=== PATIENT | male | born 1935 | race Caucasian/White ===

== ENCOUNTER 2019-05-02 12:20 | Inpatient (IN) | payer MEDICARE, OTHER ==
[~2019-05-02] VITALS: Ht 177.8 cm; Wt 86.2 kg
--- NOTE | 2019-05-02 12:30 | NUR ---
ED Nurse Note: Patient brought in by family member from home due to witnessed syncopal episode at home. Per family member, patient became diaphoretic, c/o feeling dizzy and fainted for ~ 3 min. Family noticed him having slight breathing problem at time. Patient awake, alert, oriented x 0. Patient does not follow commands, but able to withdraw from painful stimuli. Patient has hx of dementia and no changes in mental status per family member. Regular breathing with slight audible wheezing noted. RR 22, no accessory muscle use noted. No facial grimacing or guarding noted. Placed patient on panel monitor. No ectopy noted.
--- NOTE | 2019-05-02 12:30 | NUR ---
Note undone in EDM - 05/02/19 at 1358 by JARAD ED Nurse Note: Patient presents to ER due to witnessed syncopal episode at home. Per family member, patient became diaphoretic, c/o feeling dizziness and fainted for ~ 3 min and now seeing him having slight breathing problem. Patient awake, altert, oriented x 0. Patient unable to follow commands, but able to withdraw from painful stimuli. Patient has hx of dementia and no changes in mental status per family member. Regular, unlabored breathing noted. Slightly audible wheezing noted.
[2019-05-02] MEDS ORDERED: CITRACAL + D E1 EACH PO (12:53)
[2019-05-02] MEDS ORDERED: LOSARTAN POTASS50 MG ORAL (12:53)
[2019-05-02] MEDS ORDERED: ALLOPURINOL100 M1 ORAL (12:53)
[2019-05-02] MEDS ORDERED: DEPAKOTE ER250 MG ORAL (12:53)
[2019-05-02] MEDS ORDERED: FERROUS SULFAT325 MG ORAL (12:53)
[2019-05-02] MEDS ORDERED: ULORIC40 MG ORAL (12:53)
[2019-05-02] MEDS ORDERED: NAMENDA10 MG ORAL (12:53)
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
[2019-05-02] MEDS ORDERED: Albuterol/Ipratropium 3ml neb HHN ONE (13:15)
--- NOTE | 2019-05-02 13:22 | NUR ---
ED Nurse Note: pt hard stick 22 g estabkished lab sents pt down to ct.
[2019-05-02 13:34] LABS: BASOPHILS % (AUTO) 0.9 % (0.0-2.0); EOSINOPHILS % (AUTO) 3.6 % (0.0-3.0); HEMATOCRIT 43.3 % (42.0-52.0); LYMPHOCYTES % (AUTO) 12.9 % (20.0-45.0); MEAN CORPUSCULAR VOLUME 98 FL (80-99); MONOCYTES % (AUTO) 10.8 % (1.0-10.0); NEUTROPHILS % (AUTO) 71.8 % (45.0-75.0); PLATELET COUNT 172 K/UL (150-450)
[2019-05-02 13:43] LABS: ANION GAP 5 mmol/L (5-15); BLOOD UREA NITROGEN 28 mg/dL (7-18); CALCIUM 9.1 MG/DL (8.5-10.1); CARBON DIOXIDE 33 MMOL/L (21-32); CHLORIDE 103 MMOL/L (98-107); CREATININE 1.4 MG/DL (0.55-1.30); POTASSIUM 5.5 MMOL/L (3.5-5.1); SODIUM 141 MMOL/L (136-145)
[2019-05-02 14:00] VITALS: BP 125/82
[2019-05-02 14:00] LABS: ALANINE AMINOTRANSFERASE 22 U/L (12-78); ALBUMIN 4.2 G/DL (3.4-5.0); ALBUMIN/GLOBULIN RATIO 1.4 (1.0-2.7); ALKALINE PHOSPHATASE 100 U/L (46-116); ASPARTATE AMINO TRANSFERASE 30 U/L (15-37); BILIRUBIN,TOTAL 0.3 MG/DL (0.2-1.0); CKMB 2.1 NG/ML (0.0-3.6); CREATINE KINASE 67 U/L (26-308)
--- NOTE | 2019-05-02 14:00 | NUR ---
ekg and troponin faxed to [facility] dr hall spoke to [facility] er md also spoke to patients family regarding the transfer . but patient and family refuse to be transferd dr ervin has been made aware
[2019-05-02] MEDS ORDERED: Enoxaparin 80mg Inj SUBQ ONE (14:15)
--- NOTE | 2019-05-02 14:20 | NUR ---
ED Nurse Note: pt back from ct +trop ermd and charge aware pt medicated . per rob ok to give lovenox 80 . Verbal order. pt family refused to have pt tx'd they want him admitted at [facility] [place] awaiting further orders. will monitor.
--- NOTE | 2019-05-02 14:37 | NUR ---
PAGED DR SUTHERLAND.[place] FOR CARDIOLOGY CONSULT
--- NOTE | 2019-05-02 14:47 | Diagnostic Imaging Report ---
Indication: Headache Technique: Contiguous 5 mm thick transaxial imaging of the head obtained in a Siemens Sensation [address] scanner. Soft tissue and bone windows generated. Automatic Exposure Control was utilized. Total Dose length Product (DLP): 1432.[address] Dose Index Volume (CTDIvol): 70.38 mGy Comparison: none Findings: There is mild shift of the midline structures from left to right. At the same time, there is a area of encephalomalacia with signs of volume loss noted in the left frontal and temporal lobe consistent with previous infarct. Generalized atrophy of the brain demonstrated diffusely. There is no definite mass effect or edema. No hemorrhage identified. Ex vacuo dilatation of the left lateral ventricle is noted. Generalized low attenuation of periventricular white matter demonstrated consistent chronic small vessel disease. There is also encephalomalacia in the right frontal lobe. IMPRESSION: No evidence of acute intracranial hemorrhage, mass effect or edema Evidence of a old previous left MCA territory infarct. Moderate encephalomalacia noted. Generalized atrophy of the brain Chronic small vessel disease involving Show white matter The CT scanner at [facility] is accredited by the [employer] and the scans are performed using dose optimization techniques as appropriate to a performed exam including Automatic Exposure control.
--- NOTE | 2019-05-02 15:09 | Diagnostic Imaging Report ---
Indication: Dyspnea Comparison: None A single view chest radiograph was obtained. Findings: There is marked elevation of the right hemidiaphragm with interposition of bowel between the diaphragm and liver versus a diaphragmatic hernia. Heart may be enlarged. Bones are osteopenic. IMPRESSION: Elevated right hemidiaphragm versus hernia.
[2019-05-02 15:55] VITALS: BP 135/75
--- NOTE | 2019-05-02 16:27 | NUR ---
report given to LUCIA SHER patient will be transferd to [id number] dr marks is here to evaluate patient (acls protocol)
--- NOTE | 2019-05-02 16:50 | NUR ---
NURSE NOTES: RECEIVED REPORT FROM SHARIFA SHER STAFF OF ER DPT. RECEIVED PT VIA RNOTUS ESCORTED BY BHARAT SHER AND PT FAMILY.PT ADMITED WITH DX OF SYNCOPE,NSTEMI.PT ALERT TO NAME BUT CONFUSED ,FARSI SPIKING ONLY .Long PINA AND DR CHAO CAME TO SEE THE PT AND MADE AWARE AND NOTIFIED REGARDING K+ 5.5 AND TROPONIN 0.135. ALL NEW ADMISSION ORDERS NOTED AND CARRIED OUT.RENDERED TOTAL P.M NSG CARE DONE.PT INCONT OF URINE APPLY MARCO CATH.PT KEEP CLEAN AND DRY POSSIBLE.FULL BODY ASSESMENT DONE.NO EVIDENCE OF SKIN BREAK DOWN NOTED AT THIS TIME.WILL CONT TO MONITOR.
--- NOTE | 2019-05-02 17:00 | NUR ---
NURSE NOTES:PT HAS SCRATCHES ON RT FARE ARM.PT STATING THAT PT IS BEEN SCRATCHING HIS ARM.NO ACUTE DISTRESS NOTED AT THIS TIME.PT REMAINS FREE OF INJURIES.WILL CONT TO MONITOR.
[2019-05-02 17:05] VITALS: BP 133/86
--- NOTE | 2019-05-02 17:06 | NUR ---
CASE MANAGEMENT: INITIAL REVIEW 83 YO M PRESENTED TO OUR ED FROM HOME CC: SYNCOPE PMHx: TBI. HTN. SI:SYNCOPE. NSTEMI. T 98.2 HR 80 RR 18 B/P 132/82 SATS 100% ON RA K 5.5 CO2 33 BUN 28 CR 1.4 TROPONIN 0.135 IS: ASA PO X1 DUO NEB HHN X1 CT HEAD IMPRESSION:No evidence of acute intracranial hemorrhage, mass effect or edema. Evidence of a old previous left MCA territory infarct. Moderate encephalomalacia noted. Generalized atrophy of the brain. Chronic small vessel disease involving. Show white matter. PATIENT ADMITTED TO SDU 05/02/2019 @ 1319 DCP: PATIENT TO BE DISCHARGED TO HOME ONCE MEDICALLY CLEARED. PLAN OF CARE: CARDIO EVAL Addendum: 05/02/19 at 1713 by Raya Díaz CM INTERQUAL MET
--- NOTE | 2019-05-02 17:13 | Cardiac Electrophysiology PN ---
Subjective Subjective [id number] Objective Last 24 Hour Vital Signs Date Time Temp Pulse Resp B/P (MAP) Pulse Ox O2 Delivery O2 Flow Rate FiO2 05/02/19 16:23 98.2 72 18 130/80 98 Room Air 72 05/02/19 15:55 98.2 78 18 135/75 100 Room Air 05/02/19 14:00 98.2 75 23 125/82 100 Room Air 21 05/02/19 14:00 68 18 100 Room Air 21 05/02/19 13:50 63 14 98 Room Air 21 05/02/19 13:50 63 14 98 Room Air 21 05/02/19 12:26 98.2 80 18 132/82 (99) 100 Room Air Laboratory Tests Test 05/02/19 12:44 05/02/19 12:55 Venous Blood pH 7.326 Venous Blood Partial Pressure CO2 66.5 Venous Blood Partial Pressure O2 < 45.3 Venous Blood HCO3 34.0 Venous Blood Total Carbon Dioxide 66.5 Venous Bld O2 Saturation (Measured) Pending Venous Blood Oxygen Saturation 46.0 Venous Blood Base Excess 5.6 Methemoglobin 0.2 Sodium (Blood Gas) Pending White Blood Count 7.0 K/UL (4.8-10.8) Red Blood Count 4.40 M/UL (4.70-6.10) L Hemoglobin 14.0 G/DL (14.2-18.0) L Hematocrit 43.3 % (42.0-52.0) Mean Corpuscular Volume 98 FL (80-99) Mean Corpuscular Hemoglobin 31.8 PG (27.0-31.0) H Mean Corpuscular Hemoglobin Concent 32.3 G/DL (32.0-36.0) Red Cell Distribution Width 12.0 % (11.6-14.8) Platelet Count 172 K/UL (150-450) Mean Platelet Volume 9.2 FL (6.5-10.1) Neutrophils (%) (Auto) 71.8 % (45.0-75.0) Lymphocytes (%) (Auto) 12.9 % (20.0-45.0) L Monocytes (%) (Auto) 10.8 % (1.0-10.0) H Eosinophils (%) (Auto) 3.6 % (0.0-3.0) H Basophils (%) (Auto) 0.9 % (0.0-2.0) Sodium Level 141 MMOL/L (136-145) Potassium Level 5.5 MMOL/L (3.5-5.1) H Chloride Level 103 MMOL/L (98-107) Carbon Dioxide Level 33 MMOL/L (21-32) H Anion Gap 5 mmol/L (5-15) Blood Urea Nitrogen 28 mg/dL (7-18) H Creatinine 1.4 MG/DL (0.55-1.30) H Estimat Glomerular Filtration Rate mL/min (>60) Glucose Level 102 MG/DL (74-106) Calcium Level 9.1 MG/DL (8.5-10.1) Total Bilirubin 0.3 MG/DL (0.2-1.0) Aspartate Amino Transf (AST/SGOT) 30 U/L (15-37) Alanine Aminotransferase (ALT/SGPT) 22 U/L (12-78) Alkaline Phosphatase 100 U/L (46-116) Total Creatine Kinase 67 U/L (26-308) Creatine Kinase MB 2.1 NG/ML (0.0-3.6) Creatine Kinase MB Relative Index 3.1 Troponin I 0.135 ng/mL (0.000-0.056) Total Protein 7.3 G/DL (6.4-8.2) Albumin 4.2 G/DL (3.4-5.0) Globulin 3.1 g/dL Albumin/Globulin Ratio 1.4 (1.0-2.7) Joaquim Pérez MD May 02, 2019 17:13
[2019-05-02] MEDS: Memantine 10mg tab ORAL SCH (18:26)
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
--- NOTE | 2019-05-02 19:00 | NUR ---
HAND-OFF: Report given to .MARQUISE SHER.
--- NOTE | 2019-05-02 19:07 | NUR ---
NURSE NOTES: Received report from NIKKY Watkins. Pt seen in bed in semi conway position. Alert, responsive with episode of confusion noted. IV site noted to left hand 22 g and is intact. Condom cath present and is intact. Patient is on room air with no SOB at this time. no acute distress present. Bed is in lowest position. Call light is within easy reach while in bed. will continue to monitor.
[2019-05-02 20:00] VITALS: BP 112/60
--- NOTE | 2019-05-02 20:15 | History and Physical Report ---
DATE OF ADMISSION: 05/02/2019 CHIEF COMPLAINT: Syncope. HISTORY OF PRESENT ILLNESS: This is a 83-year-old male with past medical history of CVA, hypertension, and COPD who presented with syncopal episode few minutes prior to coming to the hospital emergency room at [place]. The patient was sitting upright and then grabbed his chest and slumped over for a few minutes and the family called bracelet form coverer to bring the patient to the emergency room. The patient is mute and has a history of severe dementia with urinary and bowel incontinence. He has a history of brain injury 34 years ago and was in coma for 40 days back in [facility]. He also has history of dysphagia and left-sided weakness secondary to his CVA. PAST SURGICAL HISTORY: Include left leg fracture status post surgery, had carotid stenosis surgery, anemia, status post bleeding after colonoscopy. SOCIAL HISTORY: Quit smoking 5 years ago. No alcohol or IV drug use. ALLERGIES: No known drug allergy. MEDICATIONS: The patient is on 600 mg b.i.d., divalproex 250 mg t.i.d., ferrous sulfate 325 mg one p.o. daily, Lomotil one p.o. b.i.d., losartan 50 mg one daily, Lovaza two tabs b.i.d., Tylenol 500 two tablets q. 8 h, Singulair 10 mg daily, Namenda 10 mg b.i.d., omeprazole 40 mg daily, ProAir inhalation two puffs q.i.d. p.r.n., Uloric 40 mg daily. REVIEW OF SYSTEMS: Negative except for history of present illness. PHYSICAL EXAMINATION: VITAL SIGNS: Include temperature 98.2, pulse 80, respirations 18, blood pressure 132/82, pulse oximetry 100% on room air. GENERAL APPEARANCE: Alert, no apparent distress, does not respond to command. HEENT: Normocephalic and normochromic. Extraocular muscles intact. Throat is clear. NECK: Supple. No lymphadenopathy. RESPIRATIONS: Clear to auscultation bilaterally. No wheezing, no rales, no rhonchi CARDIOVASCULAR: Regular rate and rhythm. No murmur. No gallop. ABDOMEN: Soft, nontender, nondistended. Positive bowel sounds . EXTREMITIES: No edema, No Cyanosis or clubbing. NEUROLOGIC: Alert. Able to move extremities but weak on the left side. SKIN: No rash. LABORATORY DATA: Include WBC 7.0, hemoglobin 14, hematocrit 43.3, platelet count is 172, neutrophils 71, lymphocytes were 12.9. Sodium 141, potassium 5.5, chloride 103, carbon dioxide 33, BUN 28, creatinine 1.4, glucose 102, AST 30, ALT 22. Troponin is 0.135, slightly elevated. ABG shows pH of 7.326, pCO2 66, pO2 less than 45, bicarb 34, total CO2 66.5. IMAGING: CT of the head showed MCA old infarct with generalized atrophy of the brain, and chronic small vessel disease. Chest x-ray done showed elevated right hemidiaphragm. IMPRESSION: 1. Syncope. 2. Non-ST elevated myocardial infarction. We will continue medical therapy and have sales technician home theater is Dr. Pérez evaluate the patient in the hospital. The patient will be admitted into step down and follow up in step-down. 3. History of severe dementia. 4. COPD. 5. History of old CVA with MCA distribution. 6. Hypertension. 7. Hyperlipidemia. 8. Anemia. 9. History of gout. PLAN: The patient will be admitted into the step-down and will be stabilized with medical therapy and will be discharged to longterm or rehabilitation for further evaluation and care. The patient will be admitted for minimum of 2-night stay for diagnosis of non-ST myocardial infarction and syncope. Joellen Lara M.D. DR: Chloé JOB#: [id number] CC: TATIANA
[2019-05-02] MEDS: Depakote ER 250mg tab ORAL SCH (20:55)
[2019-05-02] MEDS: Metoprolol 25mg tab ORAL SCH (20:55)
[2019-05-03] VITALS: BP 130/70
[2019-05-03 04:00] VITALS: BP 118/65
[2019-05-03 04:36] LABS: ANION GAP 8 mmol/L (5-15); BLOOD UREA NITROGEN 26 mg/dL (7-18); CALCIUM 8.5 MG/DL (8.5-10.1); CARBON DIOXIDE 26 MMOL/L (21-32); CHLORIDE 105 MMOL/L (98-107); CREATININE 1.3 MG/DL (0.55-1.30); POTASSIUM 4.7 MMOL/L (3.5-5.1); SODIUM 139 MMOL/L (136-145)
[2019-05-03 04:37] LABS: BASOPHILS % (AUTO) 0.9 % (0.0-2.0); EOSINOPHILS % (AUTO) 4.8 % (0.0-3.0); HEMATOCRIT 38.1 % (42.0-52.0); HEMOGLOBIN 12.2 G/DL (14.2-18.0); LYMPHOCYTES % (AUTO) 15.8 % (20.0-45.0); MEAN CORPUSCULAR VOLUME 99 FL (80-99); MONOCYTES % (AUTO) 12.4 % (1.0-10.0); NEUTROPHILS % (AUTO) 66.2 % (45.0-75.0); PLATELET COUNT 160 K/UL (150-450); RED BLOOD COUNT 3.87 M/UL (4.70-6.10); RED CELL DISTRIBUTION WIDTH 11.8 % (11.6-14.8); WHITE BLOOD COUNT 5.9 K/UL (4.8-10.8)
--- NOTE | 2019-05-03 04:50 | NUR ---
NURSE NOTES: Troponin is 0.140. EKG performed. Left message with Dr palacio. awaiting for call back at this time
--- NOTE | 2019-05-03 07:01 | NUR ---
HAND-OFF: Report given to NIKKY Raygoza.
--- NOTE | 2019-05-03 07:15 | NUR ---
NURSE NOTES: Report received from NIKKY Ceja. Observed patient in bed, asleep, arousable to verbal stimuli. awake overnight monitor shows sinus rhythm at this time. On room air, no respiratory distress noted. External catheter intact and draining well. Left hand 22g intact and patent with IV fluids running at prescribed rate. EKG done by PM nurse and troponin results relayed to Dr Pérez, no new orders at this time. at bedside. Safety precautions in place, bed locked, alarmed, and in lowest position, side rails up x3, and call light left within reach. Will continue with plan of care and monitor patient.
[2019-05-03 08:00] VITALS: BP 113/69
[2019-05-03] MEDS: Allopurinol 100mg Tab ORAL SCH (08:32)
[2019-05-03] MEDS: Depakote ER 250mg tab ORAL SCH ×2 (08:32→09:00)
[2019-05-03] MEDS: Memantine 10mg tab ORAL SCH ×2 (08:33→17:07)
[2019-05-03] MEDS: Metoprolol 25mg tab ORAL SCH ×2 (08:34→20:14)
[2019-05-03] MEDS: Losartan 50mg tab ORAL SCH (08:34)
[2019-05-03] MEDS: Aspirin Baby 81mg ORAL SCH (08:46)
--- NOTE | 2019-05-03 08:54 | NUR ---
NURSE NOTES: at bedside requesting to continue patient on Seroquel 50mg twice a day. Unable to give Depakote ER, patient on pureed diet, unable to crush pill. Called and left a message to Dr Lara, awaiting for call back.
[2019-05-03] MEDS ORDERED: Aspirin EC 81mg tab ORAL SCH (09:00)
--- NOTE | 2019-05-03 09:45 | NUR ---
NURSE NOTES: Dr Lara talking to patient's at bedside with new orders noted and carried out.
--- NOTE | 2019-05-03 09:47 | General Progress Note ---
Assessment/Plan Status: stable Assessment/Plan: 1. Dehydration - improving. cont IVF. 2. Elevated Troponin NSTEMI - Echo and carotid u/s pending. Cardiology following. on B david and ASA. 3. CVA with Lt sided hemeplegia - cont ASA 81 mg daily. 4. COPD - restart home med. symbicort and duoneb nab prn. 5. Advanced Dementia - stable. cont home seroqual 50 mg one po bid. 6. Dysphagia - on puree diet. 7. Urinary and bowel incontinence 8. Syncope. cont hydration and cardiac work up. 9. H/o Gout - on allopurinol 100 mg one po daily. Subjective Date patient seen: May 03, 2019 Time patient seen: 09:30 Constitutional: Reports: weakness HEENT: Reports: no symptoms Cardiovascular: Reports: no symptoms Respiratory: Reports: no symptoms Gastrointestinal/Abdominal: Reports: no symptoms Genitourinary: Reports: no symptoms Neurologic/Psychiatric: Reports: weakness Endocrine: Reports: no symptoms Hematologic/Lymphatic: Reports: no symptoms Allergies: Coded Allergies: No Known Allergies (Unverified , 05/02/19) Subjective This morning he is doing well. He didn't sleep well last night b/c he did not get his seroqual. Afebrile. no nausea or vomiting. no chest pain. no sob. Objective Last 24 Hour Vital Signs Date Time Temp Pulse Resp B/P (MAP) Pulse Ox O2 Delivery O2 Flow Rate FiO2 05/03/19 08:34 113/69 05/03/19 08:34 65 113/69 05/03/19 08:00 98.1 60 20 113/69 (84) 96 05/03/19 08:00 Room Air 05/03/19 04:00 97.8 61 20 118/65 (82) 96 05/03/19 04:00 Room Air 05/03/19 03:43 68 05/03/19 00:00 98.1 59 20 130/70 (90) 96 05/03/19 00:00 Room Air 05/02/19 23:36 56 05/02/19 20:55 66 112/60 05/02/19 20:00 Room Air 05/02/19 20:00 97.8 66 18 112/60 (77) 97 05/02/19 17:05 97.8 68 20 133/86 (102) 96 05/02/19 17:05 Room Air 05/02/19 16:59 67 05/02/19 16:23 98.2 72 18 130/80 98 Room Air 72 05/02/19 15:55 98.2 78 18 135/75 100 Room Air 05/02/19 14:00 98.2 75 23 125/82 100 Room Air 21 05/02/19 14:00 68 18 100 Room Air 21 05/02/19 13:50 63 14 98 Room Air 21 05/02/19 13:50 63 14 98 Room Air 21 05/02/19 12:26 98.2 80 18 132/82 (99) 100 Room Air Intake and Output 05/02/19 05/03/19 18:59 06:59 Intake Total 370 ml 600 ml Output Total 1 ml 450 ml Balance 369 ml 150 ml Intake Oral 320 ml 50 ml IV Total 50 ml 550 ml Output Urine Total 450 ml Stool Total 1 ml # Voids 1 # Bowel Movements 1 Laboratory Tests 05/02/19 12:44: Venous Blood pH 7.326, Venous Blood Partial Pressure CO2 66.5, Venous Blood Partial Pressure O2 < 45.3, Venous Blood HCO3 34.0, Venous Blood Total Carbon Dioxide 66.5, Venous Bld O2 Saturation (Measured) [Pending], Venous Blood Oxygen Saturation 46.0, Venous Blood Base Excess 5.6, Methemoglobin 0.2, Sodium (Blood Gas) [Pending] 05/02/19 12:55: White Blood Count 7.0, Red Blood Count 4.40L, Hemoglobin 14.0L, Hematocrit 43.3 , Mean Corpuscular Volume 98, Mean Corpuscular Hemoglobin 31.8H, Mean Corpuscular Hemoglobin Concent 32.3, Red Cell Distribution Width 12.0, Platelet Count 172, Mean Platelet Volume 9.2, Neutrophils (%) (Auto) 71.8, Lymphocytes (% ) (Auto) 12.9L, Monocytes (%) (Auto) 10.8H, Eosinophils (%) (Auto) 3.6H, Basophils (%) (Auto) 0.9, Sodium Level 141, Potassium Level 5.5H, Chloride Level 103, Carbon Dioxide Level 33H, Anion Gap 5, Blood Urea Nitrogen 28H, Creatinine 1.4H, Estimat Glomerular Filtration Rate , Glucose Level 102, Calcium Level 9.1, Total Bilirubin 0.3, Aspartate Amino Transf (AST/SGOT) 30, Alanine Aminotransferase (ALT/SGPT) 22, Alkaline Phosphatase 100, Total Creatine Kinase 67, Creatine Kinase MB 2.1, Creatine Kinase MB Relative Index 3.1, Troponin I 0.135H, Total Protein 7.3, Albumin 4.2, Globulin 3.1, Albumin/ Globulin Ratio 1.4 05/02/19 18:35: Troponin I 0.133H 05/03/19 03:20: White Blood Count 5.9, Red Blood Count 3.87L, Hemoglobin 12.2L, Hematocrit 38.1L , Mean Corpuscular Volume 99, Mean Corpuscular Hemoglobin 31.6H, Mean Corpuscular Hemoglobin Concent 32.1, Red Cell Distribution Width 11.8, Platelet Count 160, Mean Platelet Volume 8.7, Neutrophils (%) (Auto) 66.2, Lymphocytes (% ) (Auto) 15.8L, Monocytes (%) (Auto) 12.4H, Eosinophils (%) (Auto) 4.8H, Basophils (%) (Auto) 0.9, Sodium Level 139, Potassium Level 4.7, Chloride Level 105, Carbon Dioxide Level 26, Anion Gap 8, Blood Urea Nitrogen 26H, Creatinine 1.3, Estimat Glomerular Filtration Rate , Glucose Level 99, Calcium Level 8.5, Troponin I 0.140H Height (Feet): 5 Height (Inches): 10.00 Weight (Pounds): 190 General Appearance: no apparent distress, alert EENT: normal ENT inspection Neck: non-tender, normal alignment, supple Cardiovascular: normal rate, regular rhythm Respiratory/Chest: chest wall non-tender, lungs clear, normal breath sounds Abdomen: normal bowel sounds, non tender, soft Extremities: non-tender Edema: no edema noted Arm (L), no edema noted Arm (R), no edema noted Leg (L), no edema noted Leg (R), no edema noted Pedal (L), no edema noted Pedal (R), no edema noted Generalized Neurologic: alert, responsive Skin: warm/dry Lymphatic: normal anterior cervical (L), normal anterior cervical (R), normal posterior cervical (L), normal posterior cervical (R), normal submandibular (L) , normal submandibular (R), normal supraclavicular (L), normal supraclavicular ( R), normal axillary (L), normal axillary (R), normal inguinal (L), normal inguinal (R), normal other Joellen Lara MD May 03, 2019 09:47
[2019-05-03] MEDS ORDERED: Albuterol/Ipratropium 3ml neb HHN PRN (10:15)
[2019-05-03 12:00] VITALS: BP 107/52
--- NOTE | 2019-05-03 12:22 | NUR ---
NURSE NOTES: at bedside feeding patient. Reinforced teaching on aspiration precautions, verbalized understanding. Will continue to monitor patient.
--- NOTE | 2019-05-03 14:28 | Cardiac Electrophysiology PN ---
Assessment/Plan Assessment/Plan 1. Elevated troponins. Levels are low and flat at 0.3, 0.3 and 0,4. It could be due to azotemia as the creatinine is 1.4. EKG nonischemic and echocardiogram pending. Continue on aspirin and low-dose beta-david. 2. Status post diaphoresis and syncope. Again, echocardiogram is pending. Completely rule out myocardial infarction protocol. Get a carotid duplex. 3. HTN on Lopressor 25 bid and Losartan 50 daily 3. History of CVA with left hemiplegia. SCOOBY RN Subjective Subjective No CP or SOB. In SR Objective Last 24 Hour Vital Signs Date Time Temp Pulse Resp B/P (MAP) Pulse Ox O2 Delivery O2 Flow Rate FiO2 05/03/19 12:00 Room Air 05/03/19 12:00 97.3 55 20 107/52 (70) 95 05/03/19 11:28 55 05/03/19 08:34 113/69 05/03/19 08:34 65 113/69 05/03/19 08:00 98.1 60 20 113/69 (84) 96 05/03/19 08:00 Room Air 05/03/19 07:44 59 05/03/19 04:00 97.8 61 20 118/65 (82) 96 05/03/19 04:00 Room Air 05/03/19 03:43 68 05/03/19 00:00 98.1 59 20 130/70 (90) 96 05/03/19 00:00 Room Air 05/02/19 23:36 56 05/02/19 20:55 66 112/60 05/02/19 20:00 Room Air 05/02/19 20:00 97.8 66 18 112/60 (77) 97 05/02/19 17:05 97.8 68 20 133/86 (102) 96 05/02/19 17:05 Room Air 05/02/19 16:59 67 05/02/19 16:23 98.2 72 18 130/80 98 Room Air 72 05/02/19 15:55 98.2 78 18 135/75 100 Room Air Intake and Output 05/02/19 05/03/19 19:00 07:00 Intake Total 370 ml 675 ml Output Total 1 ml 450 ml Balance 369 ml 225 ml Intake Oral 320 ml 50 ml IV Total 50 ml 625 ml Output Urine Total 450 ml Stool Total 1 ml # Voids 1 # Bowel Movements 1 Laboratory Tests Test 05/02/19 18:35 05/03/19 03:20 Troponin I 0.133 ng/mL (0.000-0.056) 0.140 ng/mL (0.000-0.056) White Blood Count 5.9 K/UL (4.8-10.8) Red Blood Count 3.87 M/UL (4.70-6.10) L Hemoglobin 12.2 G/DL (14.2-18.0) L Hematocrit 38.1 % (42.0-52.0) L Mean Corpuscular Volume 99 FL (80-99) Mean Corpuscular Hemoglobin 31.6 PG (27.0-31.0) H Mean Corpuscular Hemoglobin Concent 32.1 G/DL (32.0-36.0) Red Cell Distribution Width 11.8 % (11.6-14.8) Platelet Count 160 K/UL (150-450) Mean Platelet Volume 8.7 FL (6.5-10.1) Neutrophils (%) (Auto) 66.2 % (45.0-75.0) Lymphocytes (%) (Auto) 15.8 % (20.0-45.0) L Monocytes (%) (Auto) 12.4 % (1.0-10.0) H Eosinophils (%) (Auto) 4.8 % (0.0-3.0) H Basophils (%) (Auto) 0.9 % (0.0-2.0) Sodium Level 139 MMOL/L (136-145) Potassium Level 4.7 MMOL/L (3.5-5.1) Chloride Level 105 MMOL/L (98-107) Carbon Dioxide Level 26 MMOL/L (21-32) Anion Gap 8 mmol/L (5-15) Blood Urea Nitrogen 26 mg/dL (7-18) H Creatinine 1.3 MG/DL (0.55-1.30) Estimat Glomerular Filtration Rate mL/min (>60) Glucose Level 99 MG/DL (74-106) Calcium Level 8.5 MG/DL (8.5-10.1) Objective HEAD AND NECK: Showed no JVD or carotid bruits. LUNGS: Clear. CARDIOVASCULAR: Shows regular S1 and S2 with no gallop or murmur. ABDOMEN: Soft. EXTREMITIES: No pitting edema. NEUROLOGIC: He is dysphasic, left hemiplegia. Joaquim Pérez MD May 03, 2019 14:28
--- NOTE | 2019-05-03 14:32 | NUR ---
NURSE NOTES: Spoke with Loren computer tech for f/u results on echo per Dr Pérez's request. Infromed EF 60%, Dr Pérez at bedside informed and made aware.
[2019-05-03 16:00] VITALS: BP 120/64
[2019-05-03] MEDS ORDERED: Digoxin 0.5mg/2ml Inj IVP ONE (18:30)
--- NOTE | 2019-05-03 19:21 | NUR ---
HAND-OFF: Report given to NIKKY Ceja. Patient in stable condition.
--- NOTE | 2019-05-03 19:22 | NUR ---
NURSE NOTES: Report received from NIKKY Raygoza. patient seen in bed in semi conway position. On room air with SOB , sp02 98%. No S/Sx of pain is note via FLACC. Patient is alert, mumbles, appears to be confused. IV site noted to left hand 22g and is intact. continues with IVF of NS at 50cc/hr. Bed is in lowest position. Call light is within easy reach while in bed. will continue to monitor.
[2019-05-03 20:00] VITALS: BP 98/59
[2019-05-03] MEDS: Depakote 125mg Sprinkles ORAL SCH (20:14)
[2019-05-04] VITALS: BP 99/56
[2019-05-04 04:00] VITALS: BP 111/55
[2019-05-04 06:57] LABS: BASOPHILS % (AUTO) 0.5 % (0.0-2.0); EOSINOPHILS % (AUTO) 4.1 % (0.0-3.0); HEMOGLOBIN 12.3 G/DL (14.2-18.0); LYMPHOCYTES % (AUTO) 15.7 % (20.0-45.0); MEAN CORPUSCULAR VOLUME 98 FL (80-99); MONOCYTES % (AUTO) 10.3 % (1.0-10.0); NEUTROPHILS % (AUTO) 69.4 % (45.0-75.0); PLATELET COUNT 148 K/UL (150-450); RED CELL DISTRIBUTION WIDTH 11.6 % (11.6-14.8); WHITE BLOOD COUNT 4.2 K/UL (4.8-10.8)
[2019-05-04 07:00] LABS: ANION GAP 5 mmol/L (5-15); BLOOD UREA NITROGEN 19 mg/dL (7-18); CALCIUM 8.7 MG/DL (8.5-10.1); CARBON DIOXIDE 32 MMOL/L (21-32); CHLORIDE 108 MMOL/L (98-107); CREATININE 1.3 MG/DL (0.55-1.30); POTASSIUM 4.4 MMOL/L (3.5-5.1); SODIUM 145 MMOL/L (136-145)
--- NOTE | 2019-05-04 07:22 | NUR ---
NURSE NOTES: Received report from NIKKY Ceja. Observed patient in bed, awake, verbally responsive. On room air, no respiratory distress noted. Right hand 22g intact and patent with IV fluids running at prescribed rate. Safety precautions in bed, bed locked, alarmed, and in lowest position, side rails up x3, and call light left within reach. at bedside, reinforced teaching about safety precautions; verbalized understanding. Will continue with plan of care.
--- NOTE | 2019-05-04 07:22 | NUR ---
HAND-OFF: Report given to NIKKY Raygoza.
[2019-05-04] MEDS: Depakote 125mg Sprinkles ORAL SCH ×2 (08:53→21:00)
[2019-05-04] MEDS: Allopurinol 100mg Tab ORAL SCH (08:53)
[2019-05-04 08:54] VITALS: BP 116/71
[2019-05-04] MEDS: Memantine 10mg tab ORAL SCH ×2 (08:54→17:39)
[2019-05-04] MEDS: Aspirin Baby 81mg ORAL SCH (08:54)
[2019-05-04] MEDS: Losartan 50mg tab ORAL SCH (08:56)
[2019-05-04] MEDS: Metoprolol 25mg tab ORAL SCH ×2 (08:57→21:00)
--- NOTE | 2019-05-04 09:06 | NUR ---
RESPIRATORY NOTE: Attempted to give pt Symbicort 1puff inhaler but pt was unable to follow instruction. Family member at bedside tried to ice hockey coach the pt but pt opened mouth the closed it as soon as I pressed the inhaler. NIKKY Raygoza made aware. Will continue to follow the plan of care.
[2019-05-04 12:00] VITALS: BP 123/67
--- NOTE | 2019-05-04 12:07 | NUR ---
NURSE NOTES: Dr Lara at bedside; ordered to transfer patient to telemetry. Dr aware that patient pulled out his IV; family refused to put another one.
--- NOTE | 2019-05-04 12:07 | General Progress Note ---
Assessment/Plan Status: stable Assessment/Plan: 1. Dehydration - resolved. 2. Elevated Troponin 2nd to elevated CR and SC ruled out. - Echo 60% EF and carotid u/s pending. Cardiology following. on B advid and ASA. 3. CVA with Lt sided hemeplegia - cont ASA 81 mg daily. 4. COPD - restart home med. symbicort and duoneb nab prn. 5. Advanced Dementia - stable. cont home seroqual 50 mg one po bid. 6. Dysphagia - on puree diet. 7. Urinary and bowel incontinence 8. Syncope. SC ruled out. Carotid U/S pending. 9. H/o Gout - on allopurinol 100 mg one po daily. 10. HTN - cont lopressor 25 mg bid and losartan 50 mg daily. Subjective Date patient seen: May 04, 2019 Time patient seen: 12:00 Constitutional: Reports: weakness HEENT: Reports: no symptoms Cardiovascular: Reports: no symptoms Respiratory: Reports: no symptoms Gastrointestinal/Abdominal: Reports: no symptoms Genitourinary: Reports: no symptoms Neurologic/Psychiatric: Reports: no symptoms Endocrine: Reports: no symptoms Hematologic/Lymphatic: Reports: no symptoms Allergies: Coded Allergies: No Known Allergies (Unverified , 05/02/19) Subjective This morning he is doing well. Afebrile. no nausea or vomiting. no chest pain. no sob. Objective Last 24 Hour Vital Signs Date Time Temp Pulse Resp B/P (MAP) Pulse Ox O2 Delivery O2 Flow Rate FiO2 05/04/19 09:06 64 16 95 Room Air 21 05/04/19 09:06 65 16 95 Room Air 21 05/04/19 08:54 97.9 59 20 116/71 (86) 95 05/04/19 08:00 Room Air 05/04/19 07:40 59 05/04/19 07:19 54 17 94 Room Air 21 05/04/19 04:00 97.3 53 20 111/55 (73) 95 05/04/19 04:00 Room Air 05/04/19 03:43 53 05/04/19 00:00 Room Air 05/04/19 00:00 97.3 50 20 99/56 (70) 95 05/03/19 23:36 46 05/03/19 20:14 58 98/59 05/03/19 20:00 97.7 58 20 98/59 (72) 95 05/03/19 20:00 Room Air 05/03/19 20:00 62 18 94 Room Air 21 05/03/19 19:12 60 05/03/19 16:00 98.1 59 20 120/64 (82) 97 05/03/19 16:00 Room Air 05/03/19 15:14 60 Intake and Output 05/03/19 05/04/19 18:59 06:59 Intake Total 637.5 ml 650 ml Balance 637.5 ml 650 ml Intake Oral 50 ml 50 ml IV Total 587.5 ml 600 ml # Voids 2 # Bowel Movements 1 Laboratory Tests 05/04/19 06:30: White Blood Count 4.2L, Red Blood Count 3.80L, Hemoglobin 12.3L, Hematocrit 37.0L, Mean Corpuscular Volume 98, Mean Corpuscular Hemoglobin 32.4H, Mean Corpuscular Hemoglobin Concent 33.2, Red Cell Distribution Width 11.6, Platelet Count 148L, Mean Platelet Volume 9.3, Neutrophils (%) (Auto) 69.4, Lymphocytes ( %) (Auto) 15.7L, Monocytes (%) (Auto) 10.3H, Eosinophils (%) (Auto) 4.1H, Basophils (%) (Auto) 0.5, Sodium Level 145, Potassium Level 4.4, Chloride Level 108H, Carbon Dioxide Level 32, Anion Gap 5, Blood Urea Nitrogen 19H, Creatinine 1.3, Estimat Glomerular Filtration Rate , Glucose Level 101, Calcium Level 8.7 Height (Feet): 5 Height (Inches): 10.00 Weight (Pounds): 190 General Appearance: no apparent distress, alert Neck: non-tender, normal alignment, supple Cardiovascular: normal rate, regular rhythm Respiratory/Chest: lungs clear, normal breath sounds Abdomen: normal bowel sounds, non tender, soft Extremities: non-tender Edema: no edema noted Arm (L), no edema noted Arm (R), no edema noted Leg (L), no edema noted Leg (R), no edema noted Pedal (L), no edema noted Pedal (R), no edema noted Generalized Neurologic: alert, responsive, motor weakness Skin: warm/dry Lymphatic: normal anterior cervical (L), normal anterior cervical (R), normal posterior cervical (L), normal posterior cervical (R), normal submandibular (L) , normal submandibular (R), normal supraclavicular (L), normal supraclavicular ( R), normal axillary (L), normal axillary (R), normal inguinal (L), normal inguinal (R), normal other Joellen Lara MD May 04, 2019 12:07
[2019-05-04] MEDS ORDERED: ASPIRIN81 MG ORAL (12:12)
[2019-05-04] MEDS ORDERED: SEROQUEL25 MG ORAL (12:12)
[2019-05-04] MEDS ORDERED: LOPRESSOR25 M1 ORAL (12:12)
[2019-05-04] MEDS ORDERED: SYMBICORT 1601 PUFFS INH (12:12)
[2019-05-04] MEDS ORDERED: DUONEB 0.5-3(2.53 ML HHN (12:12)
--- NOTE | 2019-05-04 13:14 | NUR ---
TRANSFER TO FLOOR: Patient transferred to telemetry room 201 bed 2, per Dr Lara's order. Report given to. Belongings taken by family and medications given to. Family accompanied during transfer. Patient in stable condition.
--- NOTE | 2019-05-04 13:20 | NUR ---
NURSE NOTES: Received report from NIKKY Raygoza. Patient transferred from [facility] to Tele. No active s/s cardiac, respiratory distress noticed at this time. Family members at the bedside, denies pain at this time. Endorsed patient has no IV site, Family members refuse to insert new IV line. MD made aware per MD no IV needed at this time. SB with HR 59. Bed in lowest position, side rails upx2, call light within reach. Will continue to monitor.
[2019-05-04] MEDS ORDERED: Albuterol/Ipratropium 3ml neb HHN PRN (13:26)
[2019-05-04 16:00] VITALS: BP 128/75
--- NOTE | 2019-05-04 19:00 | NUR ---
NURSE NOTES: Called RT for inhaler schedule for 1800, per RT will be there. Will continue to monitor.
--- NOTE | 2019-05-04 19:01 | Cardiac Electrophysiology PN ---
Assessment/Plan Assessment/Plan 1. Elevated troponins. Levels are low and flat at 0.3, 0.3 and 0,4. It could be due to azotemia as the creatinine is 1.4. EKG nonischemic and echocardiogram Nl EF. Continue on aspirin and low-dose beta- david. 2. Status post diaphoresis and syncope. Ruled out for myocardial infarction. Echo Nl EF 3. HTN on Lopressor 25 bid and Losartan 50 daily 3. History of CVA with left hemiplegia. DW RN and family Subjective Subjective No CP or SOB. In SR. Family at bedside Objective Last 24 Hour Vital Signs Date Time Temp Pulse Resp B/P (MAP) Pulse Ox O2 Delivery O2 Flow Rate FiO2 05/04/19 16:00 Room Air 05/04/19 16:00 97.7 60 18 128/75 (92) 94 05/04/19 16:00 60 05/04/19 12:00 Room Air 05/04/19 12:00 98.2 59 20 123/67 (85) 94 05/04/19 11:30 58 05/04/19 09:06 64 16 95 Room Air 21 05/04/19 09:06 65 16 95 Room Air 21 05/04/19 08:54 97.9 59 20 116/71 (86) 95 05/04/19 08:00 Room Air 05/04/19 07:40 59 05/04/19 07:19 54 17 94 Room Air 21 05/04/19 04:00 97.3 53 20 111/55 (73) 95 05/04/19 04:00 Room Air 05/04/19 03:43 53 05/04/19 00:00 Room Air 05/04/19 00:00 97.3 50 20 99/56 (70) 95 05/03/19 23:36 46 05/03/19 20:14 58 98/59 05/03/19 20:00 97.7 58 20 98/59 (72) 95 05/03/19 20:00 Room Air 05/03/19 20:00 62 18 94 Room Air 05/03/19 19:12 60 Intake and Output 05/03/19 05/04/19 19:00 07:00 Intake Total 612.5 ml 650 ml Balance 612.5 ml 650 ml Intake Oral 50 ml 50 ml IV Total 562.5 ml 600 ml # Voids 2 # Bowel Movements 1 Laboratory Tests Test 05/04/19 06:30 White Blood Count 4.2 K/UL (4.8-10.8) L Red Blood Count 3.80 M/UL (4.70-6.10) L Hemoglobin 12.3 G/DL (14.2-18.0) L Hematocrit 37.0 % (42.0-52.0) L Mean Corpuscular Volume 98 FL (80-99) Mean Corpuscular Hemoglobin 32.4 PG (27.0-31.0) H Mean Corpuscular Hemoglobin Concent 33.2 G/DL (32.0-36.0) Red Cell Distribution Width 11.6 % (11.6-14.8) Platelet Count 148 K/UL (150-450) L Mean Platelet Volume 9.3 FL (6.5-10.1) Neutrophils (%) (Auto) 69.4 % (45.0-75.0) Lymphocytes (%) (Auto) 15.7 % (20.0-45.0) L Monocytes (%) (Auto) 10.3 % (1.0-10.0) H Eosinophils (%) (Auto) 4.1 % (0.0-3.0) H Basophils (%) (Auto) 0.5 % (0.0-2.0) Sodium Level 145 MMOL/L (136-145) Potassium Level 4.4 MMOL/L (3.5-5.1) Chloride Level 108 MMOL/L (98-107) H Carbon Dioxide Level 32 MMOL/L (21-32) Anion Gap 5 mmol/L (5-15) Blood Urea Nitrogen 19 mg/dL (7-18) H Creatinine 1.3 MG/DL (0.55-1.30) Estimat Glomerular Filtration Rate mL/min (>60) Glucose Level 101 MG/DL (74-106) Calcium Level 8.7 MG/DL (8.5-10.1) Objective HEAD AND NECK: No JVD or carotid bruits. LUNGS: Clear. CARDIOVASCULAR: Shows regular S1 and S2 with no gallop or murmur. ABDOMEN: Soft. EXTREMITIES: No pitting edema. NEUROLOGIC: He is dysphasic, left hemiplegia. Joaquim Pérez MD May 04, 2019 19:01
--- NOTE | 2019-05-04 19:11 | NUR ---
HAND-OFF: Report given to NIKKY Hernandez.
--- NOTE | 2019-05-04 19:43 | NUR ---
NURSE NOTES: Received report from Sacha SHER. Pt was in the bed AO x0. Non verbal. Pt family members are at bedside. Rails are up x3 and bed alarm is on. Call light is at bedside next to the patient. Endorsed by the AM RN that family members refused IV insertion which was documented by RN.
[2019-05-04 20:00] VITALS: BP 100/54
--- NOTE | 2019-05-04 21:08 | NUR ---
NURSE NOTES: Per family member patient doesn't take Depakote at home and she refuses to give the med to the patient.
[2019-05-05 04:00] VITALS: BP 145/81
--- NOTE | 2019-05-05 07:32 | NUR ---
HAND-OFF: Report given to Sacha SHER.
--- NOTE | 2019-05-05 07:37 | NUR ---
CASE MANAGEMENT:REVIEW 05/05/19 SI: DEHYDRATION. NSTEMI. COPD. SYNCOPE 98.5 59 18 145/81 96% ON RA IS: ASA PO QD ALLOPURINOL PO QD COZAAR PO QD DEPAKOTE PO Q12 LOPRESSOR PO Q12 SYMBICORT ING BID : TELEMETRY STATUS DCP: REFER TO [facility]
--- NOTE | 2019-05-05 07:40 | NUR ---
DISCHARGE PLANNING FAXED CLINICALS TO [facility] T: [phone] F: [phone] AWAIT ACCEPTANCE AND ROOM NUMBER Addendum: 05/05/19 at 0948 by JUANA RAMOS LVN LVN RECEIVED ANDRÉS LYNCH AT [facility] PATIENT HAS BEEN ACCEPTED TO ROOM 122-B ACTUARY WILL MAKE ARRANGEMENTS TO TRANSFER
--- NOTE | 2019-05-05 07:52 | NUR ---
NURSE NOTES: Received report from NIKKY Hernandez. Patient in bed resting, no active s/s cardiac, respiratory distress noticed at this time. Patient AOx1, open eyes spontaneously, waives back when say SR aaron with HR 60, on room air. Family member at bedside. No IV site at this time, family member refuse to start IV at this time, endorsed MD holliday elizabeth Bed in lowest position, side rails upx2, call light within reach. Will continue to monitor.
[2019-05-05 08:00] VITALS: BP 150/87
[2019-05-05] MEDS: Memantine 10mg tab ORAL SCH (08:44)
[2019-05-05 08:46] VITALS: BP 150/87
[2019-05-05] MEDS: Metoprolol 25mg tab ORAL SCH (08:46)
[2019-05-05] MEDS: Depakote 125mg Sprinkles ORAL SCH (09:00)
[2019-05-05] MEDS ORDERED: Aspirin Baby 81mg ORAL SCH (09:00)
[2019-05-05] MEDS ORDERED: Allopurinol 100mg Tab ORAL SCH (09:00)
[2019-05-05] MEDS ORDERED: Losartan 50mg tab ORAL SCH (09:00)
--- NOTE | 2019-05-05 09:12 | General Progress Note ---
Assessment/Plan Status: stable Assessment/Plan: 1. HTN - cont lopressor 25 mg bid and losartan 50 mg daily 2. Elevated Troponin 2nd to elevated CR and PR ruled out. - Echo 60% EF and carotid u/s pending. Cardiology following. on B david and ASA. D/C to [facility]. 3. CVA with Lt sided hemeplegia - cont ASA 81 mg daily. 4. COPD - restart home med. symbicort and duoneb nab prn. 5. Advanced Dementia - stable. cont home seroqual 50 mg one po bid. 6. Dysphagia - on puree diet. 7. Urinary and bowel incontinence 8. Syncope. PR ruled out. Carotid U/S pending. 9. H/o Gout - on allopurinol 100 mg one po daily. Subjective Date patient seen: May 05, 2019 Time patient seen: 09:00 Constitutional: Reports: weakness HEENT: Reports: no symptoms Cardiovascular: Reports: no symptoms Respiratory: Reports: no symptoms Gastrointestinal/Abdominal: Reports: no symptoms Genitourinary: Reports: no symptoms Neurologic/Psychiatric: Reports: no symptoms Endocrine: Reports: no symptoms Hematologic/Lymphatic: Reports: no symptoms Allergies: Coded Allergies: No Known Allergies (Unverified , 05/02/19) Subjective This morning he is doing better and we will discharge to [facility]. Afebrile. no nausea or vomiting. no chest pain. no sob. Objective Last 24 Hour Vital Signs Date Time Temp Pulse Resp B/P (MAP) Pulse Ox O2 Delivery O2 Flow Rate FiO2 05/05/19 08:46 63 150/87 05/05/19 08:44 150/87 05/05/19 08:36 Room Air 21 05/05/19 08:36 60 18 95 Room Air 21 05/05/19 08:00 97.6 63 18 150/87 (108) 94 05/05/19 07:22 60 17 95 Room Air 05/05/19 04:00 59 05/05/19 04:00 98.5 60 18 145/81 (102) 96 05/05/19 00:00 61 05/04/19 21:26 55 18 93 Room Air 21 05/04/19 21:00 54 113/54 05/04/19 20:00 Room Air 05/04/19 20:00 98.1 60 18 100/54 (69) 95 05/04/19 20:00 56 05/04/19 16:00 Room Air 05/04/19 16:00 97.7 60 18 128/75 (92) 94 05/04/19 16:00 60 05/04/19 12:00 Room Air 05/04/19 12:00 98.2 59 20 123/67 (85) 94 05/04/19 11:30 58 Intake and Output 05/04/19 05/05/19 19:00 07:00 Intake Total 119.1666 ml Balance 119.1666 ml Intake Oral 50 ml IV Total 69.1666 ml # Voids 4 1 Height (Feet): 5 Height (Inches): 10.00 Weight (Pounds): 190 General Appearance: no apparent distress, alert EENT: normal ENT inspection Neck: non-tender, supple Cardiovascular: normal rate, regular rhythm Respiratory/Chest: chest wall non-tender, lungs clear Abdomen: normal bowel sounds, non tender, soft Extremities: normal range of motion, non-tender Edema: no edema noted Arm (L), no edema noted Arm (R), no edema noted Leg (L), no edema noted Leg (R), no edema noted Pedal (L), no edema noted Pedal (R), no edema noted Generalized Neurologic: alert, responsive Skin: warm/dry Lymphatic: normal anterior cervical (L), normal anterior cervical (R), normal posterior cervical (L), normal posterior cervical (R), normal submandibular (L) , normal submandibular (R), normal supraclavicular (L), normal supraclavicular ( R), normal axillary (L), normal axillary (R), normal inguinal (L), normal inguinal (R), normal other Joellen Lara MD May 05, 2019 09:12
--- NOTE | 2019-05-05 10:09 | NUR ---
DISCHARGE PLANNED PATIENT WILL DISCHARGE TO [facility] ROOM 105A (2 IN A ROOM) SKILLED T: [phone] FOR NURSE TO NURSE REPORT [facility] HAS BEEN ARRANGED FOR 1300 ELECTION JUDGE
--- NOTE | 2019-05-05 11:10 | NUR ---
NURSE NOTES: Called [facility] for nurse to nurse report, tele [phone]. Report given to Anjali, RN, made RN aware ETA 1300. Will continue to monitor.
--- NOTE | 2019-05-05 13:00 | NUR ---
NURSE NOTES: [facility] Dr[facility] Lara. pelt salter returned to certified neurodiagnostic technologist, no IV access, ID removed and placed in shredder. Skin is intact, Family member at the bedside made aware of discharge. Patient discharged in a stable condition, family member has all the belongings except denture, denture remained on patient.
--- NOTE | 2019-05-06 00:45 | Discharge Summary ---
DATE OF ADMISSION: 05/02/2019 DATE OF DISCHARGE: 05/05/2019 CHIEF COMPLAINT: Syncope. HISTORY OF PRESENT ILLNESS: This is an 83-year-old male with past medical history of CVA, hypertension, COPD, who presented with a syncopal episode a few days prior on the day of admission. The patient was evaluated with Cardiology and was admitted in the step-down. HOSPITAL COURSE: The patient's vital sign was with normal rate and rhythm and his echo showed normal ejection fraction and his EKG was also within normal range and without any abnormality. The patient's serial cardiac enzymes were done that were negative for any DC. The patient was hydrated with IV fluid and his BUN and creatinine improved. Because of generalized weakness and left-sided hemiplegia, the patient will be discharged to [facility] for physical therapy. DISCHARGE DIAGNOSES: Include: 1. Hypertension. 2. Elevated troponin secondary to elevated creatinine level. 3. History of cerebrovascular accident with left-sided hemiplegia. 4. Chronic obstructive pulmonary disease. 5. Advanced dementia. 6. 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 7. Urinary and bladder incontinence. 8. Syncope. 9. History of gout. DISCHARGE MEDICATIONS: Include: 1. Aspirin 81 mg daily. 2. Symbicort 160/4.5, 1 puff b.i.d. 3. DuoNeb q.6 hours p.r.n. 4. Metoprolol tartrate 25 mg q.12 hours. 5. Seroquel 25 mg b.i.d. 6. Allopurinol 100 mg daily. 7. Uloric 40 mg daily. 8. Ferrous sulfate 325 daily. 9. Losartan 50 mg daily. 10. Namenda 10 mg b.i.d. 11. Depakote 250 q.12 hours. DISPOSITION: The patient will be discharged to [facility] and I will be following the patient in a few days. Joellen Lara M.D. DR: Alvin JOB#: [id number] CC: TATIANA
== END 2019-05-05 13:11 | DRG 641 ==
LOC: EDBEDREQ 12:48 → EMR 13:14 → 2W 13:19 → EDBEDREQSVC 14:31 → EDBEDREQ 14:32 → 2W 16:30 → 2E 05-04 13:05
DX: E86.0 Dehydration (principal); I69.354 Hemiplegia and hemiparesis following cerebral infarction affecting left non-dominant side; R55 Syncope and collapse; F03.90 Unspecified dementia, unspecified severity, without behavioral disturbance, psychotic disturbance, mood disturbance, and anxiety; R74.8 Abnormal levels of other serum enzymes; I10 Essential (primary) hypertension; E78.5 Hyperlipidemia, unspecified; J44.9 Chronic obstructive pulmonary disease, unspecified; I69.391 Dysphagia following cerebral infarction; R13.10 Dysphagia, unspecified; R32 Unspecified urinary incontinence; M10.9 Gout, unspecified; Z87.820 Personal history of traumatic brain injury; Z79.82 Long term (current) use of aspirin
CPT/HCPCS: 36415; 70450; 71045; 80048; 80053; 82550; 82553; 84484; 85025; 93005; 93306; 94640; 94664; 99291; J7620

== ENCOUNTER 2019-06-23 19:53 | Inpatient (IN) | payer MEDICARE, OTHER ==
[~2019-06-23] VITALS: Ht 180.3 cm; Wt 64.9 kg
[~2019-06-23 19:53] MED LIST: ALLOPURINOL100 M1 ORAL; ASPIRIN81 MG ORAL; CITRACAL + D E1 EACH PO; DEPAKOTE ER250 MG ORAL; DUONEB 0.5-3(2.53 ML HHN; FERROUS SULFAT325 MG ORAL; LOPRESSOR25 M1 ORAL; LOSARTAN POTASS50 MG ORAL; NAMENDA10 MG ORAL; SEROQUEL25 MG ORAL; SYMBICORT 1601 PUFFS INH; ULORIC40 MG ORAL
[2019-06-23] MEDS ORDERED: NAMENDA10 MG ORAL (19:58)
[2019-06-23 20:00] VITALS: BP 68/40
--- NOTE | 2019-06-23 20:00 | NUR ---
ED Nurse Note: Patient as BIBA from SNF due to syncopy episode and hypotention. Patient has dementia, AAO x0, patient's BP 113/105 upon arrival, O2 sat 91% on RA. Patient presented with non-labored breathing. ER MD at bed side, will continue to monitor.
--- NOTE | 2019-06-23 20:30 | NUR ---
ED Nurse Note: Blood collected, sent down.
[2019-06-23 21:03] LABS: HEMATOCRIT 37.4 % (42.0-52.0); HEMOGLOBIN 13.1 G/DL (14.2-18.0); MEAN CORPUSCULAR VOLUME 92 FL (80-99); PLATELET COUNT 306 K/UL (150-450); RED BLOOD COUNT 4.08 M/UL (4.70-6.10); RED CELL DISTRIBUTION WIDTH 11.6 % (11.6-14.8); WHITE BLOOD COUNT 14.6 K/UL (4.8-10.8)
[2019-06-23 21:12] LABS: ANION GAP 11 mmol/L (5-15); BLOOD UREA NITROGEN 65 mg/dL (7-18); CALCIUM 9.2 MG/DL (8.5-10.1); CARBON DIOXIDE 28 MMOL/L (21-32); CHLORIDE 103 MMOL/L (98-107); CREATININE 2.6 MG/DL (0.55-1.30); POTASSIUM 5.2 MMOL/L (3.5-5.1); SODIUM 142 MMOL/L (136-145)
--- NOTE | 2019-06-23 21:18 | Emergency Room Report ---
History of Present Illness General Chief Complaint: Syncope Source: Family Member, Medical Record Present Illness HPI 84-year-old male history of dementia presents with potential cardiac arrest patient had CPR conducted on him at the long-term prior to arrival patient had ROSC, less than 1 minute per family, however per EMS patient had syncopized on transfer from chair to bed, and passed out, unknown aggravating relieving factors, patient is unable to give a history EMS states that there vitals were 60 systolic patient was minimally responsive, only combative when he moved Allergies: Coded Allergies: No Known Allergies (Unverified , 05/02/19) Patient History Past Medical History: see triage record Reviewed Nursing Documentation: PMH: Agreed; PSxH: Agreed Nursing Documentation-PMH Past Medical History: No History, Except For Hx Hypertension: Yes Hx Asthma: Yes Hx Cancer: No Hx Gastrointestinal Problems: No Hx Cerebrovascular Accident: Yes Hx Dementia: Yes Hx Syncope: Yes Hx Aphasia: Yes Hx Weakness: Yes Review of Systems All Other Systems: limited - Patient AMS Physical Exam Vital Signs Date Time Temp Pulse Resp B/P (MAP) Pulse Ox O2 Delivery O2 Flow Rate FiO2 06/23/19 19:45 98.2 90 23 68/40 (49) 97 Non-Rebreather Sp02 EP Interpretation: reviewed, normal General Appearance: non-toxic, lethargic Head: normocephalic, atraumatic Eyes: bilateral eye PERRL, bilateral eye EOMI ENT: uvula midline, moist mucus membranes Neck: supple, thyroid normal, supple/symm/no masses Respiratory: lungs clear, no respiratory distress, no retraction, no accessory muscle use Cardiovascular #1: normal peripheral pulses, regular rate, rhythm, no edema, no gallop, no murmur Gastrointestinal: non tender, soft, no guarding, no rebound Musculoskeletal: normal inspection Neurologic: responsive, other - Moving all 4 extremities Skin: no rash, warm/dry Procedures Critical Care Time Critical Care Time Given the critical condition in which the patient arrived, the patient was immediately assessed by myself and the nurse, and cardiac monitoring initiated due to the potential for rapid decompensation of the patient's clinical condition. During the course of the patient's stay, I spent a considerable amount of time at the bedside performing serial re-evaluations of the patient's hemodynamic and clinical status because of the recognized potential threat to life or limb in this condition. I then had a chance to review not only all of the available current laboratory and radiographic studies obtained today, but I also reviewed old records available to me at the time. Additionally, any ancillary information available including rate analyst records were reviewed. Sequential vital signs were obtained. Critical Care time of 39 minutes was performed exclusive of billable procedures. Medical Decision Making Diagnostic Impression: Primary Impression: Syncope Qualified Codes: R55 - Syncope and collapse Additional Impressions: Cardiac arrest NSTEMI (non-ST elevated myocardial infarction) Hypotension Qualified Codes: I95.9 - Hypotension, unspecified Altered mental status Qualified Codes: R41.82 - Altered mental status, unspecified ER Course 84-year-old male presented with hypotension, fluid bolus was provided, anabiotic started, patient also found to have an elevated troponin aspirin rectally was provided. Spoke with family with regards to his DNR they wish to keep him DNR Patient with an elevated white count hypotension, will start broad-spectrum antibiotics Patient admitted to Dr. Cason at 10:02pm Patient is currently normotensive, CT brain negative, patient is not stable for transport given his elevated troponin and AMS, will keep patient in [place] Laboratory Tests Test 06/23/19 20:40 06/23/19 21:15 White Blood Count 14.6 K/UL (4.8-10.8) H Red Blood Count 4.08 M/UL (4.70-6.10) L Hemoglobin 13.1 G/DL (14.2-18.0) L Hematocrit 37.4 % (42.0-52.0) L Mean Corpuscular Volume 92 FL (80-99) Mean Corpuscular Hemoglobin 32.0 PG (27.0-31.0) H Mean Corpuscular Hemoglobin Concent 34.9 G/DL (32.0-36.0) Red Cell Distribution Width 11.6 % (11.6-14.8) Platelet Count 306 K/UL (150-450) Mean Platelet Volume 8.5 FL (6.5-10.1) Neutrophils (%) (Auto) % (45.0-75.0) Lymphocytes (%) (Auto) % (20.0-45.0) Monocytes (%) (Auto) % (1.0-10.0) Eosinophils (%) (Auto) % (0.0-3.0) Basophils (%) (Auto) % (0.0-2.0) Differential Total Cells Counted 100 Neutrophils % (Manual) 88 % (45-75) H Lymphocytes % (Manual) 7 % (20-45) L Monocytes % (Manual) 5 % (1-10) Eosinophils % (Manual) 0 % (0-3) Basophils % (Manual) 0 % (0-2) Band Neutrophils 0 % (0-8) Platelet Estimate Adequate Platelet Morphology Normal Red Blood Cell Morphology Normal Prothrombin Time 10.8 SEC (9.30-11.50) Prothrombin Time INR 1.0 (0.9-1.1) PTT 25 SEC (23-33) Sodium Level 142 MMOL/L (136-145) Potassium Level 5.2 MMOL/L (3.5-5.1) H Chloride Level 103 MMOL/L (98-107) Carbon Dioxide Level 28 MMOL/L (21-32) Anion Gap 11 mmol/L (5-15) Blood Urea Nitrogen 65 mg/dL (7-18) H Creatinine 2.6 MG/DL (0.55-1.30) H Estimate Glomerular Filtration Rate mL/min (>60) Glucose Level 163 MG/DL (74-106) H Calcium Level 9.2 MG/DL (8.5-10.1) Phosphorus Level 4.1 MG/DL (2.5-4.9) Magnesium Level 2.1 MG/DL (1.8-2.4) Total Bilirubin 0.3 MG/DL (0.2-1.0) Aspartate Amino Transferase (AST) 22 U/L (15-37) Alanine Aminotransferase (ALT) 33 U/L (12-78) Alkaline Phosphatase 61 U/L (46-116) Total Creatine Kinase 98 U/L (26-308) Creatine Kinase MB 6.1 NG/ML (0.0-3.6) H Creatine Kinase MB Relative Index 6.2 Troponin I 0.264 ng/mL (0.000-0.056) Pro-B-Type Natriuretic Peptide 2161 pg/mL (0-125) H Total Protein 6.6 G/DL (6.4-8.2) Albumin 3.0 G/DL (3.4-5.0) L Globulin 3.6 g/dL Albumin/Globulin Ratio 0.8 (1.0-2.7) L Lipase 147 U/L (73-393) Lactic Acid Level 1.10 mmol/L (0.4-2.0) EKG Diagnostic Results EKG Time: 19:57 EP Interpretation: NSR, rate 87, QTc 423, no acute ST elevations, normal axis Rhythm Strip Diag. Results Rhythm Strip Time: 21:36 EP Interpretation: yes Rate: 72 Rhythm: NSR, no PVC's, no ectopy Chest X-Ray Diagnostic Results Chest X-Ray Diagnostic Results : Chest X-Ray Ordered: Yes # of Views/Limited/Complete: 1 View Indication: Chest Pain EP Interpretation: Yes Interpretation: no consolidation, no effusion, no pneumothorax, no acute cardiopulmonary disease Impression: No acute disease Electronically Signed by: Jon Weiner MD CT/MRI/US Diagnostic Results CT/MRI/US Diagnostic Results : Impression Preliminary Findings Only See Final Report For Complete Findings CT HEAD Without Contrast: Brain: No acute hemorrhage, hydrocephalus, or mass effect. Incidental findings: Chronic microvascular ischemic changes with cerebral volume loss. Unchanged left-sided encephalomalacia. Unchanged bifrontal encephalomalacia. Bones: No acute calvarial fracture. Radiologist: Gin Monet MD Study ready at 22:18 and initial results transmitted at 22:30 Last Vital Signs Date Time Temp Pulse Resp B/P (MAP) Pulse Ox O2 Delivery O2 Flow Rate FiO2 06/23/19 19:45 98.2 90 23 68/40 (49) 97 Non-Rebreather Disposition: ADMITTED INPATIENT Condition: Stable Referrals: Joellen Lara MD (PCP) Jon Weiner MD Jun 23, 2019 21:18
[2019-06-23 21:25] LABS: ALANINE AMINOTRANSFERASE 33 U/L (12-78); ALBUMIN/GLOBULIN RATIO 0.8 (1.0-2.7); ALKALINE PHOSPHATASE 61 U/L (46-116); ASPARTATE AMINO TRANSFERASE 22 U/L (15-37); BILIRUBIN,TOTAL 0.3 MG/DL (0.2-1.0); CKMB 6.1 NG/ML (0.0-3.6); CREATINE KINASE 98 U/L (26-308); PHOSPHORUS 4.1 MG/DL (2.5-4.9)
[2019-06-23] MEDS ORDERED: Vancomycin 1 GM in NS 275 ML IVPB ONE (22:00)
[2019-06-23] MEDS ORDERED: Cefepime HCl 2 GM in D5W 55 ML IVPB ONE (22:00)
--- NOTE | 2019-06-23 22:31 | Diagnostic Imaging Report ---
Indications: Altered mental status Technique: Spiral acquisitions obtained through the brain. Angled axial and coronal 5 x 5 mm slices were reconstructed. Total dose length product 1446.46 mGycm. CTDI vol(s) 70.38 mGy. Dose reduction achieved using automated exposure control Comparison: 05/02/2019 Findings: Artifact from dental amalgam obscures much the posterior fossa. There is also significant motion artifact. Again demonstrated is extensive encephalomalacia involving the left temporal, frontal, and parietal lobes. There is resultant ex vacuo dilatation of the left lateral ventricle. There is also generalized ventriculomegaly and a lesser extent enlargement of the extra axial CSF spaces. Symmetric encephalomalacia is seen in the bilateral frontal lobes. No acute intracranial hemorrhage or edema or mass effect. There is left to right midline shift which is somewhat unusual in that the midline structures are shifted to the side where there is less encephalomalacia; significance/reason for this is uncertain. However, this is unchanged from the prior exam. There is evidence of prior bilateral lateral cataract surgery. The visualized sinuses are clear. The mastoids are clear. Findings are unchanged from the prior study. Impression: Extensive chronic abnormality, with evidence of multiple prior infarcts. Negative for acute intracranial bleed or mass effect This agrees with the preliminary interpretation provided overnight by [facility] teleradiology service. The CT scanner at [facility] is accredited by the [employer] and the scans are performed using protocols designed to limit radiation exposure to as low as reasonably achievable to attain images of sufficient resolution adequate for diagnostic evaluation.
[2019-06-23 23:00] VITALS: BP 68/40
--- NOTE | 2019-06-23 23:55 | NUR ---
ED Nurse Note: Patient was admited to SDU due to syncopy epizode, and hypotention. Patient was transfered to the unit via gurney, by ACLS protocol with all belongings. AAO x0, VSS at this time, skin is dry warm to touch.
[2019-06-24] VITALS: BP 138/53
--- NOTE | 2019-06-24 | NUR ---
NURSE NOTES: Patient admitted to ICU as CELIO overflow. Patient admitted from ER by Carina SHER. Patient is awake at this time. Patient seems slightly confused. Oriented X 1 to name. Patient presents with R AC 20G infusing Vancomycin from the ER. Lung sounds are clear throughout, skin is intact. Patient Bowel sounds are active. Patient is incontinent. ONLINE MARKETING COORDINATOR Attempted to insert Alcantara in ER but was unsuccessful. Condom Catheter was placed here on the unit. Patients Vitals are as follows: 120/78, 75 NSR, Spo2 99% while on 2 L NC, afebrile. Patient does not appear to be in any distress at this time, family is at bedside.Will continue to monitor.
--- NOTE | 2019-06-24 00:15 | NUR ---
PATIENT BELONGINGS: PATIENT HAS NO BELONGINGS OTHER THAN HIS UPPER DENTURES, I INFORMED THE FAMILY IF THEY WOULD WANT TO TAKE IT HOME WITH THEM BUT THEY WANT IT TO REMAIN ON PATIENT MOUTH. UPDATED BELONGINGS LIST.
--- NOTE | 2019-06-24 00:24 | NUR ---
NURSE NOTES: Paged MD Fajardo for admission orders at this time. Waiting call back
--- NOTE | 2019-06-24 00:45 | NUR ---
NURSE NOTES: Dr. Harvey called back with admissions orders. Attending MD ordered for Alcantara catheter and UA and CX
--- NOTE | 2019-06-24 01:00 | NUR ---
NURSE NOTES: I spoke with patients daughter and regarding code status and to confirm DNR/ DNI wishes. Family said they want to continue with the DNR/DNI code status. and daughter said they would want Pressors if patient may need it within this admission. I called Dr. Lara to give him update regarding code status. Updated POSLT in patients chart.
--- NOTE | 2019-06-24 01:46 | NUR ---
NURSE NOTES: Attempted to insert Alcantara catheter but was unsuccessful. Patients Daughter and refused further attempts for Alcantara catheter insertion and refused any more attempts of Alcantara catheters during this admission. Explained to daughter and the need for urine for analysis but they continue to refuse, Will respect families rights and wishes. Patient right now remains stable. Will continue to monitor.
--- NOTE | 2019-06-24 02:00 | NUR ---
NURSE NOTES: Repositioned patient. Maintenance fluids hung, IV remains intact. Will continue to monitor.
[2019-06-24 04:00] VITALS: BP 129/85
--- NOTE | 2019-06-24 04:00 | NUR ---
NURSE NOTES: Repositioned patient. Vitals remains stable. BP 129/85, HR 72 NSR, Spo2 97% 2LNC, Afebrile. IV remains patent and intact. Family at bedside.
--- NOTE | 2019-06-24 06:00 | NUR ---
NURSE NOTES: Patient cleaned and repositioned. Patient vitals remains stable, Afebrile no new changes since admission.
[2019-06-24 06:05] LABS: ANION GAP 9 mmol/L (5-15); BLOOD UREA NITROGEN 60 mg/dL (7-18); CALCIUM 8.6 MG/DL (8.5-10.1); CARBON DIOXIDE 24 MMOL/L (21-32); CHLORIDE 109 MMOL/L (98-107); POTASSIUM 5.3 MMOL/L (3.5-5.1); SODIUM 142 MMOL/L (136-145)
[2019-06-24 06:13] LABS: BASOPHILS % (AUTO) 0.5 % (0.0-2.0); EOSINOPHILS % (AUTO) 0.4 % (0.0-3.0); HEMOGLOBIN 12.5 G/DL (14.2-18.0); LYMPHOCYTES % (AUTO) 6.3 % (20.0-45.0); MEAN CORPUSCULAR VOLUME 97 FL (80-99); MONOCYTES % (AUTO) 10.6 % (1.0-10.0); NEUTROPHILS % (AUTO) 82.2 % (45.0-75.0); PLATELET COUNT 222 K/UL (150-450); RED BLOOD COUNT 3.82 M/UL (4.70-6.10); RED CELL DISTRIBUTION WIDTH 12.2 % (11.6-14.8); WHITE BLOOD COUNT 12.5 K/UL (4.8-10.8)
[2019-06-24] MEDS: Albuterol/Ipratropium 3ml neb HHN SCH ×3 (07:05→23:23)
--- NOTE | 2019-06-24 07:25 | NUR ---
NURSE NOTES: Received the patient from NIKKY Doss. Patient is asleep, easily arousable, resting in bed comfortably. On 2L via NC. No acute distress noted. SR noted on the cardiac catheterization technologist. Right forearm 22G, running NS at 50ml/hr. VSS. Bed in lowest position, locked, side rails up x3. Bed alarm on. Patient's at bedside. Will continue to monitor. Addendum: 06/24/19 at 0756 by MALLORY BRIAN RN Per previous nurse, attempted to insert mota cath and place condom cath multiple times, but unsuccessful. Patient's refused further attempts. UA/CS not collected.
[2019-06-24 08:00] VITALS: BP 152/114
[2019-06-24] MEDS: Allopurinol 100mg Tab ORAL SCH (08:10)
[2019-06-24] MEDS: Memantine 10mg tab ORAL SCH ×2 (08:10→17:06)
[2019-06-24] MEDS: Pantoprazole Inj IVP SCH ×2 (08:10→21:35)
[2019-06-24] MEDS: Losartan 50mg tab ORAL SCH (08:10)
[2019-06-24] MEDS: Aspirin Baby 81mg ORAL SCH (08:10)
[2019-06-24] MEDS: Heparin 5000 units/ml inj SUBQ SCH ×2 (08:11→21:00)
--- NOTE | 2019-06-24 08:50 | NUR ---
NURSE NOTES: Placed condom cath on the patient, at bedside okay with condom cath for urine collection.
--- NOTE | 2019-06-24 09:05 | NUR ---
NURSE NOTES: Dr. Lara at bedside to evaluate the patient. Notified abnormal labs to MD. New orders entered.
--- NOTE | 2019-06-24 09:10 | NUR ---
NURSE NOTES: 2D Echo ongoing at bedside.
[2019-06-24] MEDS ORDERED: Sodium Polystyrene Sulfonate 15gm Powder ORAL SCH (09:15)
--- NOTE | 2019-06-24 09:20 | General Progress Note ---
Assessment/Plan Status: stable Assessment/Plan: 1. Leukocytosis - will do U/A and cx. No urine was collected so far. will cont prophylactic abx for now. Reattempt to collect urine. 2. HTN - cont home meds. 3. Elevated Troponin - will recheck troponin. probably 2nd to CHRIS. 4. HCRIS - will cont NS at 75 cc/hr and recheck labs tomorrow. 5. Hyperkalemia - kayexalate 30 gm x one dose given. 6. Syncope VS cardiac arrest at rehab. 7. NSTEMI - will consult Cardiology. 8. Severe Dementia 9. COPD 10. H/o CVA wth MCA disturbution 11. HLD - cont home med. 12. Gout - cont allopurinol. Subjective Date patient seen: Jun 24, 2019 Time patient seen: 09:00 Constitutional: Reports: weakness HEENT: Reports: no symptoms Cardiovascular: Reports: no symptoms Respiratory: Reports: no symptoms Gastrointestinal/Abdominal: Reports: no symptoms Genitourinary: Reports: incontinence Neurologic/Psychiatric: Reports: weakness Endocrine: Reports: no symptoms Hematologic/Lymphatic: Reports: no symptoms Allergies: Coded Allergies: No Known Allergies (Unverified , 05/02/19) Subjective This morning he is doing well. No hypotension. His bp meds restarted. afebrile. Objective Last 24 Hour Vital Signs Date Time Temp Pulse Resp B/P (MAP) Pulse Ox O2 Delivery O2 Flow Rate FiO2 06/24/19 08:10 152/114 06/24/19 08:00 71 06/24/19 08:00 Nasal Cannula 2.0 06/24/19 08:00 98.6 96 24 152/114 (127) 97 06/24/19 07:07 74 20 100 Nasal Cannula 2.0 28 75 18 98 06/24/19 07:06 77 16 100 Nasal Cannula 2.0 28 06/24/19 04:00 70 06/24/19 04:00 72 25 129/85 (100) 98 06/24/19 04:00 Nasal Cannula 2.0 06/24/19 00:00 98.2 73 27 138/53 (81) 97 06/24/19 00:00 67 06/24/19 00:00 Nasal Cannula 2.0 06/23/19 23:50 98.2 98 23 68/40 97 Nasal Cannula 2.0 06/23/19 23:35 Nasal Cannula 2.0 06/23/19 23:00 98.2 23 40 97 Non-Rebreather 06/23/19 20:00 98.2 97 Non-Rebreather 06/23/19 19:45 98.2 90 23 (49) 97 Non-Rebreather Intake and Output 06/23/19 06/24/19 19:00 07:00 Intake Total 4380 ml Balance 4380 ml Intake IV Total 4380 ml # Voids 3 Laboratory Tests 06/23/19 20:40: White Blood Count 14.6H, Red Blood Count 4.08L, Hemoglobin 13.1L, Hematocrit 37.4L, Mean Corpuscular Volume 92, Mean Corpuscular Hemoglobin 32.0H, Mean Corpuscular Hemoglobin Concent 34.9, Red Cell Distribution Width 11.6, Platelet Count 306, Mean Platelet Volume 8.5, Neutrophils (%) (Auto) , Lymphocytes (%) ( Auto) , Monocytes (%) (Auto) , Eosinophils (%) (Auto) , Basophils (%) (Auto) , Differential Total Cells Counted 100, Neutrophils % (Manual) 88H, Lymphocytes % (Manual) 7L, Monocytes % (Manual) 5, Eosinophils % (Manual) 0, Basophils % ( Manual) 0, Band Neutrophils 0, Platelet Estimate Adequate, Platelet Morphology Normal, Red Blood Cell Morphology Normal, Prothrombin Time 10.8, Prothromb Time International Ratio 1.0, Activated Partial Thromboplast Time 25, Sodium Level 142, Potassium Level 5.2H, Chloride Level 103, Carbon Dioxide Level 28, Anion Gap 11, Blood Urea Nitrogen 65H, Creatinine 2.6H, Estimat Glomerular Filtration Rate , Glucose Level 163H, Calcium Level 9.2, Phosphorus Level 4.1, Magnesium Level 2.1, Total Bilirubin 0.3, Aspartate Amino Transf (AST/SGOT) 22, Alanine Aminotransferase (ALT/SGPT) 33, Alkaline Phosphatase 61, Total Creatine Kinase 98, Creatine Kinase MB 6.1H, Creatine Kinase MB Relative Index 6.2, Troponin I 0.264H, Pro-B-Type Natriuretic Peptide 2161H, Total Protein 6.6, Albumin 3.0L, Globulin 3.6, Albumin/Globulin Ratio 0.8L, Lipase 147 06/23/19 21:15: Lactic Acid Level 1.10 06/24/19 05:30: White Blood Count 12.5H, Red Blood Count 3.82L, Hemoglobin 12.5L, Hematocrit 37.0L, Mean Corpuscular Volume 97, Mean Corpuscular Hemoglobin 32.6H, Mean Corpuscular Hemoglobin Concent 33.7, Red Cell Distribution Width 12.2, Platelet Count 222, Mean Platelet Volume 10.2H, Neutrophils (%) (Auto) 82.2H, Lymphocytes (%) (Auto) 6.3L, Monocytes (%) (Auto) 10.6H, Eosinophils (%) (Auto) 0.4, Basophils (%) (Auto) 0.5, Sodium Level 142, Potassium Level 5.3H, Chloride Level 109H, Carbon Dioxide Level 24, Anion Gap 9, Blood Urea Nitrogen 60H, Creatinine 2.0H, Estimat Glomerular Filtration Rate , Glucose Level 116H, Calcium Level 8.6, Troponin I 0.495H Height (Feet): 5 Height (Inches): 11.00 Weight (Pounds): 145 General Appearance: no apparent distress, alert EENT: normal ENT inspection Neck: non-tender, supple Cardiovascular: normal rate, regular rhythm Respiratory/Chest: lungs clear, normal breath sounds Abdomen: normal bowel sounds, non tender, soft Extremities: normal range of motion, non-tender Edema: no edema noted Arm (L), no edema noted Arm (R), no edema noted Leg (L), no edema noted Leg (R), no edema noted Pedal (L), no edema noted Pedal (R), no edema noted Generalized Neurologic: alert, responsive, motor weakness Skin: warm/dry Joellen Lara MD Jun 24, 2019 09:20
--- NOTE | 2019-06-24 09:36 | NUR ---
NURSE NOTES: Patient resting in bed comfortably. Condom cath intact, no urine collected at this time. BP 122/102. HOB kept elevated. refused patient to be turned at this time.
[2019-06-24] MEDS ORDERED: Cefepime HCl 1 GM in D5W 55 ML IVPB SCH (10:00)
--- NOTE | 2019-06-24 10:30 | NUR ---
NURSE NOTES: Condom cath was out, no urine collected in urine bag. placed condom cath again.
--- NOTE | 2019-06-24 11:13 | Cardiac Electrophysiology PN ---
Subjective Subjective [id number] Objective Last 24 Hour Vital Signs Date Time Temp Pulse Resp B/P (MAP) Pulse Ox O2 Delivery O2 Flow Rate FiO2 06/24/19 08:10 152/114 06/24/19 08:00 71 06/24/19 08:00 Nasal Cannula 2.0 06/24/19 08:00 98.6 96 24 152/114 (127) 97 06/24/19 07:07 74 20 100 Nasal Cannula 2.0 28 75 18 98 06/24/19 07:06 77 16 100 Nasal Cannula 2.0 28 06/24/19 04:00 70 06/24/19 04:00 72 25 129/85 (100) 98 06/24/19 04:00 Nasal Cannula 2.0 06/24/19 00:00 98.2 73 27 138/53 (81) 97 06/24/19 00:00 67 06/24/19 00:00 Nasal Cannula 2.0 06/23/19 23:50 98.2 98 23 68/40 97 Nasal Cannula 2.0 06/23/19 23:35 Nasal Cannula 2.0 06/23/19 23:00 98.2 23 68/40 97 Non-Rebreather 06/23/19 20:00 98.2 23 68/40 97 Non-Rebreather 06/23/19 19:45 98.2 90 23 68/40 (49) 97 Non-Rebreather Intake and Output 06/23/19 06/24/19 19:00 07:00 Intake Total 4380 ml Balance 4380 ml IV Total 4380 ml # Voids 3 Laboratory Tests Test 06/23/19 20:40 06/23/19 21:15 06/24/19 05:30 White Blood Count 14.6 K/UL (4.8-10.8) H 12.5 K/UL (4.8-10.8) H Red Blood Count 4.08 M/UL (4.70-6.10) L 3.82 M/UL (4.70-6.10) L Hemoglobin 13.1 G/DL (14.2-18.0) L 12.5 G/DL (14.2-18.0) L Hematocrit 37.4 % (42.0-52.0) L 37.0 % (42.0-52.0) L Mean Corpuscular Volume 92 FL (80-99) 97 FL (80-99) Mean Corpuscular Hemoglobin 32.0 PG (27.0-31.0) H 32.6 PG (27.0-31.0) H Mean Corpuscular Hemoglobin Concent 34.9 G/DL (32.0-36.0) 33.7 G/DL (32.0-36.0) Red Cell Distribution Width 11.6 % (11.6-14.8) 12.2 % (11.6-14.8) Platelet Count 306 K/UL (150-450) 222 K/UL (150-450) Mean Platelet Volume 8.5 FL (6.5-10.1) 10.2 FL (6.5-10.1) H Neutrophils (%) (Auto) % (45.0-75.0) 82.2 % (45.0-75.0) H Lymphocytes (%) (Auto) % (20.0-45.0) 6.3 % (20.0-45.0) L Monocytes (%) (Auto) % (1.0-10.0) 10.6 % (1.0-10.0) H Eosinophils (%) (Auto) % (0.0-3.0) 0.4 % (0.0-3.0) Basophils (%) (Auto) % (0.0-2.0) 0.5 % (0.0-2.0) Differential Total Cells Counted 100 Neutrophils % (Manual) 88 % (45-75) H Lymphocytes % (Manual) 7 % (20-45) L Monocytes % (Manual) 5 % (1-10) Eosinophils % (Manual) 0 % (0-3) Basophils % (Manual) 0 % (0-2) Band Neutrophils 0 % (0-8) Platelet Estimate Adequate Platelet Morphology Normal Red Blood Cell Morphology Normal Prothrombin Time 10.8 SEC (9.30-11.50) Prothromb Time International Ratio 1.0 (0.9-1.1) Activated Partial Thromboplast Time 25 SEC (23-33) Sodium Level 142 MMOL/L (136-145) 142 MMOL/L (136-145) Potassium Level 5.2 MMOL/L (3.5-5.1) H 5.3 MMOL/L (3.5-5.1) H Chloride Level 103 MMOL/L (98-107) 109 MMOL/L (98-107) H Carbon Dioxide Level 28 MMOL/L (21-32) 24 MMOL/L (21-32) Anion Gap 11 mmol/L (5-15) 9 mmol/L (5-15) Blood Urea Nitrogen 65 mg/dL (7-18) H 60 mg/dL (7-18) H Creatinine 2.6 MG/DL (0.55-1.30) H 2.0 MG/DL (0.55-1.30) H Estimat Glomerular Filtration Rate mL/min (>60) mL/min (>60) Glucose Level 163 MG/DL (74-106) H 116 MG/DL (74-106) H Calcium Level 9.2 MG/DL (8.5-10.1) 8.6 MG/DL (8.5-10.1) Phosphorus Level 4.1 MG/DL (2.5-4.9) Magnesium Level 2.1 MG/DL (1.8-2.4) Total Bilirubin 0.3 MG/DL (0.2-1.0) Aspartate Amino Transf (AST/SGOT) 22 U/L (15-37) Alanine Aminotransferase (ALT/SGPT) 33 U/L (12-78) Alkaline Phosphatase 61 U/L (46-116) Total Creatine Kinase 98 U/L (26-308) Creatine Kinase MB 6.1 NG/ML (0.0-3.6) H Creatine Kinase MB Relative Index 6.2 Troponin I 0.264 ng/mL (0.000-0.056) 0.495 ng/mL (0.000-0.056) Pro-B-Type Natriuretic Peptide 2161 pg/mL (0-125) H Total Protein 6.6 G/DL (6.4-8.2) Albumin 3.0 G/DL (3.4-5.0) L Globulin 3.6 g/dL Albumin/Globulin Ratio 0.8 (1.0-2.7) L Lipase 147 U/L (73-393) Lactic Acid Level 1.10 mmol/L (0.4-2.0) Microbiology Date/Time Source Procedure Growth Status 06/23/19 21:30 Rectum Received Joaquim Pérez MD Jun 24, 2019 11:13
--- NOTE | 2019-06-24 11:28 | Cardiology Report ---
APPROVED REPORT EXAM: Two-dimensional and M-mode echocardiogram with Doppler and color Doppler. INDICATION Syncope M-Mode DIMENSIONS IVSd1.4 (0.7-1.1cm)Left Atrium (MM)1.6 (1.6-4.0cm) LVDd3.4 (3.5-5.6cm)Aortic Root2.6 (2.0-3.7cm) PWd0.7 (0.7-1.1cm)Aortic Cusp Exc.1.3 (1.5-2.0cm) IVSs2.0 cm LVDs2.0 (2.5-4.0cm) PWs0.9 cm Normal left ventricular chamber size, systolic function and wall motion to extent visualized. Left ventricular ejection fraction estimated to be 70-75%. Mild left ventricular hypertrophy. No pericardial effusion. All other cardiac chamber sizes are within normal limits. Aortic valve calcification with decreased cusp excursion c/w aortic stenosis. Thickened mitral valve leaflets with normal excursion. Mitral annulus and aortic root calcification. Normal pulmonic valve structure. Normal tricuspid valve structure. IVC at normal size with physiologic collapse. A color flow and spectral Doppler study was performed and revealed: No aortic insufficiency. Peak aortic valve gradient of 18 mmHg and a mean of 10 mmHg. Aortic valve area 1.8 cm2 calculated by continuity equation. Trace mitral regurgitation. Mitral diastolic velocities suggest reduced left ventricular relaxation c/w mild LV diastolic dysfunction (Grade I ) Mild tricuspid regurgitation. Tricuspid systolic velocities suggests peak right ventricular systolic pressure of 43mmHg,consistent with mild pulmonary hypertension.
--- NOTE | 2019-06-24 11:29 | Cardiology Report ---
APPROVED REPORT EKG Measurement Heart [id number] Normal sinus rhythm Possible Left atrial enlargement Borderline ECG
--- NOTE | 2019-06-24 11:46 | Diagnostic Imaging Report ---
Indication: Chest pain Technique: One view of the chest Comparison: 05/02/2019 Findings: Massive diaphragmatic hernia of uncertain nature again demonstrated. The heart size is upper limits of normal. The lungs and pleural spaces are grossly clear. Findings are overall unchanged Impression: Massive diaphragmatic hernia, type of hernia uncertain based on the available images, also previously demonstrated No definite acute process
--- NOTE | 2019-06-24 11:50 | NUR ---
NURSE NOTES: Patient resting in bed comfortably. Patient was turned and repositioned. patient kept clean and dry. Still pending for a bed in telemetry.
[2019-06-24 12:00] VITALS: BP 96/49
--- NOTE | 2019-06-24 13:00 | NUR ---
NURSE NOTES: urine sample collected from clean cath, sent down to labs.
[2019-06-24 13:28] LABS: APPEARANCE,URINE CLEAR; BILIRUBIN, URINE NEGATIVE (NEGATIVE); COLOR,URINE PALE YELLOW; GLUCOSE, URINE (UA) NEGATIVE (NEGATIVE); KETONES,URINE NEGATIVE (NEGATIVE); LEUKOCYTE ESTERASE ,URINE NEGATIVE (NEGATIVE); NITRITE,URINE NEGATIVE (NEGATIVE); PH,URINE 6 (4.5-8.0); PROTEIN,URINE NEGATIVE (NEGATIVE); UROBILINOGEN,URINE NORMAL MG/DL (0.0-1.0)
--- NOTE | 2019-06-24 14:46 | NUR ---
NURSE NOTES: Patient awake, resting in bed, AOX1. Alcantara care nad oral care provided. Patient kept clean and dry. Patient's daughter at bedside. HOB kept elevated.
[2019-06-24 16:00] VITALS: BP 112/61
--- NOTE | 2019-06-24 16:30 | NUR ---
NURSE NOTES: patient was turned and repositioned. VSS. No acute distress noted. Patient on room air, O2 sat 97%. Patient resting in bed comfortably. No s/sx of pain or SOB.
[2019-06-24] MEDS: Megace 400mg/10ml Susp ORAL SCH (17:06)
--- NOTE | 2019-06-24 18:09 | NUR ---
NURSE NOTES: Patient is awake, being by patient's daughter in bed. No acute distress noted.
--- NOTE | 2019-06-24 18:15 | History and Physical Report ---
DATE OF ADMISSION: 06/23/2019 CHIEF COMPLAINT: Syncope versus possible cardiac arrest at the rehab. HISTORY OF PRESENT ILLNESS: This is an 84-year-old male with history of severe dementia, hypertension, history of syncope, history of non-ST elevated IN with COPD, history of CVA with hemiplegia, hyperlipidemia, and gout, who was brought in from [facility] for complaint of possible syncope versus cardiac arrest. The patient was at the wheelchair, was trying to put back onto the bed at which point they found that the patient does not have a pulse and nonresponsive. CPR was started at the [facility] and the patient's vitals came back and paramedics was called and the patient was brought in for evaluation at the [place] [facility]. The patient had a previous history of syncope and non-ST elevated IN on the last admission. 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 ALLERGIES: No known drug allergy. PAST SURGICAL HISTORY: None. FAMILY HISTORY: Noncontributory. REVIEW OF SYSTEMS: Everything negative except for HPI. PHYSICAL EXAMINATION: VITAL SIGNS: Temperature of 98.2, pulse 90, respirations 23, blood pressure 68/40, and pulse oximetry is 97% on 2 liters. GENERAL APPEARANCE: Alert and slightly lethargic. HEENT: Normocephalic and normochromic. Extraocular muscles intact. Throat is clear. NECK: Supple. No lymphadenopathy. LUNGS: Clear to auscultation bilaterally. No wheezing or rales. CARDIOVASCULAR: Regular rate and rhythm. No murmur. No gallop. GASTROINTESTINAL: Soft, nontender, nondistended. Positive bowel sounds. EXTREMITIES: No edema, cyanosis, or clubbing. NEUROLOGIC: The patient responsive, but does not follow direction. SKIN: No rash. LABORATORY AND DIAGNOSTIC DATA: Include WBC 14.6, hemoglobin is 13.1, hematocrit 37.4, platelet count is 306, MCV is 92, neutrophils 88, lymphocytes 7. Chemistry shows sodium 142, potassium 5.3, chloride 109, bicarb 24, BUN 60, creatinine 2.0, glucose is 116. Lactic acid 1.1. Calcium is 8.6. Troponin is 0.264. INR is 1, PT is 10.8, PTT 25. UA showed +1 urine blood, +2 to 4 urine rbc, 2 to 4 urine wbc with occasional bacteria and squamous cells. Chest x-ray showed no acute process. CT scan of the head, no acute intracranial bleed or mass effect, showed chronic multiple prior infarcts in the CT scan of the brain, otherwise no acute process. IMPRESSION: 1. Syncope. 2. Possible cardiac arrest. 3. Non-ST elevated IN. 4. Possible UTI and we will try to obtain UA and culture and start him on empiric antibiotic. 5. Hypertension. We will hold blood pressure medication due to low blood pressure and monitor the patient. We will restart the blood pressure medication once the blood pressure is higher in the morning. 6. Elevated troponin. We will recheck the serial troponin levels and have Cardiology, Dr. Pérez evaluate the patient. Most likely elevated troponin might be due to acute kidney injury. 7. Acute kidney injury. Restart the patient on IV hydration with normal saline at 60 mL an hour. 8. Severe dementia. 9. History of CVA with hemiplegia in MCA distribution. 10. COPD, currently stable. 11. Hyperlipidemia. We will continue home medications. 12. Gout. We will continue allopurinol for now. The patient will be admitted for minimum of 2-night stay for the diagnoses of syncope, non-ST elevated IN, and possible UTI. Joellen Lara M.D. DR: PATEL JOB#: [id number] CC: TATIANA
--- NOTE | 2019-06-24 19:00 | Consultation ---
DATE OF CONSULTATION: 06/24/2019 CARDIOLOGY CONSULTATION CONSULTING PHYSICIAN: Joaquim Pérez M.D. REFERRING PHYSICIAN: Joellen Lara M.D. REASON FOR CONSULTATION: Possible cardiac arrest. HISTORY OF PRESENT ILLNESS: The patient is an 84-year-old Maltese gentleman with history of dementia who was brought to the emergency room after he had potentially cardiac arrest and had CPR. He was brought in from halfway. It was less than a minute syncopized and transferred from chair to bed and passed out. The patient's blood pressure was in the 60s and was minimally responsive, . The patient was then brought to intensive care unit and Cardiology consultation was obtained for further evaluation and management. REVIEW OF SYSTEMS: Cannot be obtained. The patient is altered. PAST MEDICAL HISTORY: 1. Hypertension. 2. Chronic troponin leak. 3. History of prior syncope. 4. CVA with left hemiparesis. 5. History of COPD. 6. Advanced dementia. FAMILY HISTORY: Noncontributory. SOCIAL HISTORY: He is a halfway resident. Does not smoke or drink alcohol. PHYSICAL EXAMINATION: VITAL SIGNS: Blood pressure was 68/40 in the ER with a pulse of 90, temperature 98. Currently, blood pressure improved to 152/114, earlier was 127/85, pulse 100, respirations 24, temperature 98.6. HEAD AND NECK: Showed no JVD. LUNGS: Coarse rhonchi . CARDIOVASCULAR: Shows regular S1 and S2 with no gallop. ABDOMEN: Soft. EXTREMITIES: No pitting edema. LABORATORY AND DIAGNOSTIC DATA: EKG showed sinus rhythm with lateral ST abnormalities. Labs show white count of 12.5, hemoglobin of 12.5, hematocrit 37, and platelet count is 222,000. Sodium 142, potassium 5.2, BUN of 60, and creatinine 2.0, glucose of 116. Initial BUN was 65 and creatinine 2.6. Troponin 0.265 and 0.495. BNP 2161. ASSESSMENT AND PLAN: 1. Troponin leak. The levels were elevated in the previous admission also. The patient's EKG showed no acute changes and no significant change compared to the previous EKG. Troponin elevation could be due to renal failure as the creatinine is 2.6. Also could be due to CPR. We will repeat EKG and troponin and repeat the echocardiogram for further evaluation. 2. Hypotension, resolved. The patient's blood pressure is actually high now. Continue metoprolol 25 mg b.i.d. and losartan 50 mg daily. I will add p.r.n. clonidine to his medical regimen. 3. Status post questionable cardiac arrest, currently in sinus rhythm with stable hemodynamics. 4. Renal failure, partially azotemia with BUN of 65 and creatinine 2.6. Avoid diuretics. 5. Elevated BNP of more than 2000, could be due to diastolic dysfunction. Again, echocardiogram will be repeated. 6. Hyperkalemia due to renal failure. 7. CVA with left hemiplegia. 8. Dysphagia, on pureed diet. 9. History of gout. Thank you very much, Dr. Lara, for allowing me to participate in the care of this patient. Please do not hesitate to contact me for any questions regarding my evaluation. Sincerely, Joaquim Pérez M.D. DR: Blu JOB#: [id number] CC:
--- NOTE | 2019-06-24 19:10 | NUR ---
HAND-OFF: Report given to NIKKY Lyle.
--- NOTE | 2019-06-24 19:17 | NUR ---
CASE MANAGEMENT: INITIAL REVIEW 84 YO M KIERAN FROM [facility] CC: SYNCOPE PMHx: DEMENTIA. HTN. ASTHMA. APHASIA. SI:AMS. T 98.2 HR 90 RR 23 B/P 68/40 SATS 97% ON NRD WBC 14.6 K 5.2 BUN 65 CR 2.6 GLU 163 BNP 2161 IS:NS BOLUS X1 PATIENT ADMITTED TO ICU 06/23/2019 @ 2100 DCP: PATIENT TO BE DISCHARGED TO HOME ONCE MEDICALLY CLEARED. Addendum: 06/25/19 at 0801 by Raya Díaz CM INTERMEDINA MCKEON
--- NOTE | 2019-06-24 19:30 | NUR ---
NURSE NOTES: Recvd.Asleep,easily arousable,confused and disoriented.Re-oriented,reassured.Resp.unlabored P.Ox-96-97% on RA.IV inf.(R)FA.site clear.Pos.chg.inct.of urine.Made clean and dry.Family at BS.See V/S.Scope SR.
[2019-06-24 20:00] VITALS: BP 102/59
[2019-06-24] MEDS ORDERED: DUONEB 0.5-3(2.53 ML HHN (20:12)
[2019-06-24] MEDS ORDERED: VENTOLIN HFA18 GM INH (20:13)
[2019-06-24] MEDS ORDERED: ZENPEP DR 25,01 EAC1 PO (20:16)
[2019-06-24] MEDS ORDERED: ACETAMINOPHEN325 M1 ORAL (20:20)
[2019-06-24] MEDS ORDERED: ACETAMINOPHEN500 M5 ORAL (20:20)
[2019-06-24] MEDS ORDERED: ACETAMINOPHEN500 M3 ORAL (20:21)
[2019-06-24] MEDS ORDERED: Metoprolol 25mg tab ORAL SCH (21:00)
[2019-06-24] MEDS: Metoprolol 25mg tab ORAL SCH (21:00)
[2019-06-24] MEDS ORDERED: Piperacillin/Tazobactam 3.375 GM in NS 110 ML IVPB SCH ×2 (21:00→22:00)
--- NOTE | 2019-06-24 21:00 | NUR ---
NURSE NOTES: Venous duplex done at this time. Per tech Duplex Negative.
--- NOTE | 2019-06-24 22:00 | NUR ---
NURSE NOTES: S/P venous doppler study done.HS care rendered.Pos. to comfort.Due meds admin.Neuro status same.
[2019-06-25] VITALS: BP 135/67
--- NOTE | 2019-06-25 00:10 | NUR ---
Repositioned,kept comfortable.P.Ox-95% on RA.See V/S.Scope SR.No distress.Cont.Plan of care.
--- NOTE | 2019-06-25 02:00 | NUR ---
NURSE NOTES: Asleep.Resp.unlabored.Sat.98%.No distress.Pos.chg.
[2019-06-25 04:00] VITALS: BP 149/89
--- NOTE | 2019-06-25 04:30 | NUR ---
NURSE NOTES: Adithya.Fausto Foley.Pos.to comfort.See V/S.Scope rhythm same.Neuro status same.Cont.plan of care.
[2019-06-25 05:08] LABS: BASOPHILS % (AUTO) 0.4 % (0.0-2.0); EOSINOPHILS % (AUTO) 0.5 % (0.0-3.0); HEMATOCRIT 32.7 % (42.0-52.0); HEMOGLOBIN 10.9 G/DL (14.2-18.0); LYMPHOCYTES % (AUTO) 6.7 % (20.0-45.0); MEAN CORPUSCULAR VOLUME 95 FL (80-99); MONOCYTES % (AUTO) 9.1 % (1.0-10.0); NEUTROPHILS % (AUTO) 83.3 % (45.0-75.0); PLATELET COUNT 141 K/UL (150-450); RED BLOOD COUNT 3.43 M/UL (4.70-6.10); WHITE BLOOD COUNT 8.1 K/UL (4.8-10.8)
[2019-06-25 05:22] LABS: ANION GAP 9 mmol/L (5-15); BLOOD UREA NITROGEN 42 mg/dL (7-18); CALCIUM 8.2 MG/DL (8.5-10.1); CARBON DIOXIDE 23 MMOL/L (21-32); CHLORIDE 111 MMOL/L (98-107); CREATININE 1.8 MG/DL (0.55-1.30); POTASSIUM 4.3 MMOL/L (3.5-5.1); SODIUM 143 MMOL/L (136-145)
--- NOTE | 2019-06-25 07:15 | NUR ---
HAND-OFF: Report given to Uri BAZZIRN after Transfer to SDU via bed accpd.by staff.VSS.Scope SR.NO CP.
--- NOTE | 2019-06-25 07:18 | NUR ---
NURSE NOTES: Called and spoke with Daughter, Nanda Palacio, about fathers transfer to room 244-1.
--- NOTE | 2019-06-25 07:19 | NUR ---
NURSE NOTES: Received patient from NIKKY Lyle. Patient resting in bed with no sign of acute distress. Patient oriented to name but confused to place, time, and purpose. Patient speaks very little estonian and is not speaking at this time. Patient sitting in semi-fowlers position. Patient on room air with saturation of 96-98%. patient is reportedly unable to feed himself and requires one to one feeding. Patient skin intact. Patient has right forearm 20 gauge peripheral IV that is patent, asymptomatic, and running normal saline at 75mL/hr at this time. Patient has an abnormal troponin level of 0.324 this morning. This lab value is trending down since admission. Dr Pérez is aware. Patient bed in low position with bed alarm on and call light in reach. Patient has an order to transfer to telemetry. Will follow up and transfer if bed available.
[2019-06-25] MEDS: Albuterol/Ipratropium 3ml neb HHN SCH ×3 (07:23→22:27)
[2019-06-25 08:00] VITALS: BP 147/78
[2019-06-25] MEDS ORDERED: Vancomycin 1gm/D5W 275ml IVPB ONE ×2 (08:00)
--- NOTE | 2019-06-25 09:16 | General Progress Note ---
Assessment/Plan Status: stable Assessment/Plan: 1. Leukocytosis - improved. follow cx's. ID following. will cont prophylactic abx for now. 2. HTN - cont home meds. 3. Elevated Troponin - probably 2nd to CHRIS. 4. CHRIS - will cont NS at 75 cc/hr and recheck labs tomorrow. 5. Hyperkalemia - resolved. 6. Syncope VS cardiac arrest at rehab. 7. NSTEMI - will consult Cardiology. 8. Severe Dementia 9. COPD 10. H/o CVA wth MCA disturbution 11. HLD - cont home med. 12. Gout - cont allopurinol. Subjective Date patient seen: Jun 25, 2019 Time patient seen: 09:00 Constitutional: Reports: weakness HEENT: Reports: no symptoms Cardiovascular: Reports: no symptoms Respiratory: Reports: no symptoms Gastrointestinal/Abdominal: Reports: no symptoms Genitourinary: Reports: no symptoms Neurologic/Psychiatric: Reports: no symptoms Endocrine: Reports: no symptoms Hematologic/Lymphatic: Reports: no symptoms Allergies: Coded Allergies: No Known Allergies (Unverified , 05/02/19) Subjective This morning he is doing well. No sob or chest pain. no fever or chills. Objective Last 24 Hour Vital Signs Date Time Temp Pulse Resp B/P (MAP) Pulse Ox O2 Delivery O2 Flow Rate FiO2 06/25/19 07:23 85 22 100 Room Air 21 85 22 97 06/25/19 04:00 98.6 82 21 149/89 (109) 98 06/25/19 04:00 Room Air 06/25/19 04:00 83 06/25/19 00:00 Room Air 06/25/19 00:00 93 06/25/19 00:00 98.3 94 22 135/67 (89) 95 06/24/19 23:23 84 22 98 Room Air 21 87 24 95 06/24/19 21:00 81 102/59 06/24/19 20:00 98.6 80 18 102/59 (73) 98 06/24/19 20:00 80 06/24/19 20:00 Room Air 06/24/19 16:00 Room Air 06/24/19 16:00 80 06/24/19 16:00 98.5 79 18 112/61 (78) 98 06/24/19 15:23 76 20 100 Room Air 21 77 22 98 06/24/19 12:00 Room Air 06/24/19 12:00 98.5 72 20 96/49 (65) 97 06/24/19 12:00 72 Intake and Output 06/24/19 06/25/19 18:59 06:59 Intake Total 1638.75 ml 991.25 ml Balance 1638.75 ml 991.25 ml Intake Oral 650 ml 50 ml IV Total 988.75 ml 941.25 ml # Voids 5 2 Laboratory Tests 06/24/19 11:35: Troponin I 0.416H 06/24/19 13:00: Urine Color Pale yellow, Urine Appearance Clear, Urine pH 6, Urine Specific [place] 1.010, Urine Protein Negative, Urine Glucose (UA) Negative, Urine Ketones Negative, Urine Blood 1+H, Urine Nitrite Negative, Urine Bilirubin Negative, Urine Urobilinogen Normal, Urine Leukocyte Esterase Negative, Urine RBC 2-4H, Urine WBC 2-4, Urine Squamous Epithelial Cells Occasional, Urine Bacteria Occasional 06/25/19 05:00: Troponin I 0.324H, White Blood Count 8.1, Red Blood Count 3.43L, Hemoglobin 10.9L, Hematocrit 32.7L, Mean Corpuscular Volume 95, Mean Corpuscular Hemoglobin 31.9H, Mean Corpuscular Hemoglobin Concent 33.4, Red Cell Distribution Width 12.0, Platelet Count 141L, Mean Platelet Volume 8.6, Neutrophils (%) (Auto) 83.3H, Lymphocytes (%) (Auto) 6.7L, Monocytes (%) (Auto) 9.1, Eosinophils (%) (Auto) 0.5, Basophils (%) (Auto) 0.4, Sodium Level 143, Potassium Level 4.3, Chloride Level 111H, Carbon Dioxide Level 23, Anion Gap 9, Blood Urea Nitrogen 42H, Creatinine 1.8H, Estimat Glomerular Filtration Rate , Glucose Level 119H, Calcium Level 8.2L, Pro-B-Type Natriuretic Peptide 3348H, Random Vancomycin Level 6.6 Height (Feet): 5 Height (Inches): 11.00 Weight (Pounds): 143 General Appearance: no apparent distress, alert Neck: non-tender, supple Cardiovascular: normal rate, regular rhythm Respiratory/Chest: chest wall non-tender, lungs clear Abdomen: normal bowel sounds, non tender, soft Extremities: non-tender Edema: no edema noted Arm (L), no edema noted Arm (R), no edema noted Leg (L), no edema noted Leg (R), no edema noted Pedal (L), no edema noted Pedal (R), no edema noted Generalized Neurologic: alert, responsive Skin: warm/dry Joellen Lara MD Jun 25, 2019 09:16
[2019-06-25] MEDS: Pantoprazole Inj IVP SCH ×2 (09:22→20:56)
[2019-06-25] MEDS: Megace 400mg/10ml Susp ORAL SCH ×2 (09:22→17:56)
[2019-06-25] MEDS: Memantine 10mg tab ORAL SCH ×2 (09:23→17:56)
[2019-06-25] MEDS: Aspirin Baby 81mg ORAL SCH (09:23)
[2019-06-25] MEDS: Metoprolol 25mg tab ORAL SCH ×2 (09:23→20:57)
[2019-06-25] MEDS: Losartan 50mg tab ORAL SCH (09:24)
[2019-06-25] MEDS: Allopurinol 100mg Tab ORAL SCH (09:25)
[2019-06-25] MEDS: Heparin 5000 units/ml inj SUBQ SCH ×2 (09:25→20:59)
--- NOTE | 2019-06-25 09:51 | CDS Physician Query ---
Clarification is required for compliance, coding accuracy, and to reflect severity of illness for this patient Dear Dr. Lara Date: 06-25-19 CDS: Elissa Tiwari Contact: Clinical Indicators: WBC 14.6, Pulse 98, RR 23, altered mental status, lactic acid 1.1, documentation reads possible UTI, patient started on antibiotics. According to the clinical indications above, please indicate below the condition PHYSICIAN RESPONSE: [X]Possible Sepsis on Admission [ ]SIRS [ ]SIRS with organ dysfunction [ ]Septic Shock []Not applicable [ ]Other: Present on Admission: [x]Yes [] No [ ] Clinically Undetermined Physician signature Date Please also document in your Progress Notes and/or Discharge Summary and indicate if the condition was present on admission. BURTOND
[2019-06-25] MEDS: Zosyn 3.375gm q8h **Extended infusion IVPB SCH ×4 (10:34→21:52)
[2019-06-25 12:00] VITALS: BP 150/71
--- NOTE | 2019-06-25 12:00 | NUR ---
NURSE NOTES: Patient resting in bed with no sign of acute distress. Vital signs stable. Patient oriented to name but confused to place, time, and purpose. Patient sitting in semi-fowlers position. Patient on room air with saturation of 96-98%. Right forearm 20 gauge peripheral IV remains patent, asymptomatic, and running normal saline at 75mL/hr at this time. Patient's at the bedside. Patient bed in low position with bed alarm on and call light in reach. Patient has an order to transfer to telemetry. Bed not yet available. Will follow up.
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
--- NOTE | 2019-06-25 12:04 | Cardiac Electrophysiology PN ---
Assessment/Plan Assessment/Plan 1. Troponin leak. The levels were elevated in the previous admission also. The patient's EKG showed no acute changes and no significant change compared to the previous EKG. Troponin elevation could be due to renal failure as the creatinine was 2.6. No CP. EF 60% 2. Hypotension, resolved. 3. HTN On metoprolol 25 mg b.i.d. and losartan 50 mg daily and p.r.n. clonidine 4. Status post questionable cardiac arrest, currently in sinus rhythm with stable hemodynamics. No arrhythmias on tele. 5. Renal failure, partially azotemia with BUN of 65 and creatinine 2.6. Improved Cr to 1.8 with hydration. 6. Hyperkalemia due to renal failure. 7. CVA with left hemiplegia. 8. Dysphagia, on pureed diet. 9. History of gout. 10. DNR and DNI DW and RN at bedside Subjective Subjective Transferred out of ICU. More alert. Daughter at bedside. Objective Last 24 Hour Vital Signs Date Time Temp Pulse Resp B/P (MAP) Pulse Ox O2 Delivery O2 Flow Rate FiO2 06/25/19 09:24 157/78 06/25/19 09:23 82 157/78 06/25/19 08:00 Room Air 06/25/19 08:00 98.5 82 20 147/78 (101) 97 06/25/19 07:23 85 22 100 Room Air 21 85 22 97 06/25/19 04:00 98.6 82 21 149/89 (109) 98 06/25/19 04:00 Room Air 06/25/19 04:00 83 06/25/19 00:00 Room Air 06/25/19 00:00 93 06/25/19 00:00 98.3 94 22 135/67 (89) 95 06/24/19 23:23 84 22 98 Room Air 21 87 24 95 06/24/19 21:00 81 102/59 06/24/19 20:00 98.6 80 18 102/59 (73) 98 06/24/19 20:00 80 06/24/19 20:00 Room Air 06/24/19 16:00 Room Air 06/24/19 16:00 80 06/24/19 16:00 98.5 79 18 112/61 (78) 98 06/24/19 15:23 76 20 100 Room Air 21 77 22 98 06/24/19 12:00 Room Air 06/24/19 12:00 98.5 72 20 96/49 (65) 97 06/24/19 12:00 72 Intake and Output 06/24/19 06/25/19 19:00 07:00 Intake Total 1595.00 ml 1060.0 ml Balance 1595.00 ml 1060.0 ml Intake Oral 650 ml 50 ml IV Total 945.00 ml 1010.0 ml # Voids 5 2 Laboratory Tests Test 06/24/19 13:00 06/25/19 05:00 Urine Color Pale yellow Urine Appearance Clear Urine pH 6 (4.5-8.0) Urine Specific [place] 1.010 (1.005-1.035) Urine Protein Negative (NEGATIVE) Urine Glucose (UA) Negative (NEGATIVE) Urine Ketones Negative (NEGATIVE) Urine Blood 1+ (NEGATIVE) H Urine Nitrite Negative (NEGATIVE) Urine Bilirubin Negative (NEGATIVE) Urine Urobilinogen Normal MG/DL (0.0-1.0) Urine Leukocyte Esterase Negative (NEGATIVE) Urine RBC 2-4 /HPF (0 - 0) H Urine WBC 2-4 /HPF (0 - 0) Urine Squamous Epithelial Cells Occasional /LPF Urine Bacteria Occasional /HPF (NONE) White Blood Count 8.1 K/UL (4.8-10.8) Red Blood Count 3.43 M/UL (4.70-6.10) L Hemoglobin 10.9 G/DL (14.2-18.0) L Hematocrit 32.7 % (42.0-52.0) L Mean Corpuscular Volume 95 FL (80-99) Mean Corpuscular Hemoglobin 31.9 PG (27.0-31.0) H Mean Corpuscular Hemoglobin Concent 33.4 G/DL (32.0-36.0) Red Cell Distribution Width 12.0 % (11.6-14.8) Platelet Count 141 K/UL (150-450) L Mean Platelet Volume 8.6 FL (6.5-10.1) Neutrophils (%) (Auto) 83.3 % (45.0-75.0) H Lymphocytes (%) (Auto) 6.7 % (20.0-45.0) L Monocytes (%) (Auto) 9.1 % (1.0-10.0) Eosinophils (%) (Auto) 0.5 % (0.0-3.0) Basophils (%) (Auto) 0.4 % (0.0-2.0) Sodium Level 143 MMOL/L (136-145) Potassium Level 4.3 MMOL/L (3.5-5.1) Chloride Level 111 MMOL/L (98-107) H Carbon Dioxide Level 23 MMOL/L (21-32) Anion Gap 9 mmol/L (5-15) Blood Urea Nitrogen 42 mg/dL (7-18) H Creatinine 1.8 MG/DL (0.55-1.30) H Estimat Glomerular Filtration Rate mL/min (>60) Glucose Level 119 MG/DL (74-106) H Calcium Level 8.2 MG/DL (8.5-10.1) L Troponin I 0.324 ng/mL (0.000-0.056) Pro-B-Type Natriuretic Peptide 3348 pg/mL (0-125) H Random Vancomycin Level 6.6 ug/mL Microbiology Date/Time Source Procedure Growth Status 06/23/19 20:40 Blood Blood Culture - Preliminary NO GROWTH AFTER 24 HOURS Resulted 06/23/19 20:20 Blood Blood Culture - Preliminary NO GROWTH AFTER 24 HOURS Resulted 06/24/19 13:00 Indwelling Cath Urine Culture - Preliminary NO GROWTH Resulted 06/23/19 21:30 Rectum Received Objective HEAD AND NECK: No JVD. LUNGS: Coarse rhonchi . CARDIOVASCULAR: Regular S1 and S2 with no gallop. ABDOMEN: Soft. EXTREMITIES: No pitting edema. Joaquim Pérez MD Jun 25, 2019 12:04
--- NOTE | 2019-06-25 13:48 | Infectious Diseases Prog Note ---
Assessment/Plan Problems: (1) Leukocytosis Assessment & Plan: rule out sepsis , continue vancomycin and zosyn empirically pending cultures, will repeat CXR to rule out aspiration pneumonia (2) Syncope Assessment & Plan: possible cardiac arrest , rule out cardiac source , cardiology is following , continue tele monitor (3) Hypotension Assessment & Plan: rule out sepsis , will continue vancomycin and zosyn pending blood culture (4) Altered mental status Assessment & Plan: suspect due to cardiac reason with hypotension Subjective ROS Limited/Unobtainable: Yes Allergies: Coded Allergies: No Known Allergies (Unverified , 05/02/19) Subjective He was resting in bed comfortable, responsive to verbal commands, demented, not in distress Objective Vital Signs Last 24 Hour Vital Signs Date Time Temp Pulse Resp B/P (MAP) Pulse Ox O2 Delivery O2 Flow Rate FiO2 06/25/19 12:00 83 06/25/19 12:00 Room Air 06/25/19 12:00 98.7 88 20 150/71 (97) 96 06/25/19 09:24 157/78 06/25/19 09:23 82 157/78 06/25/19 08:00 Room Air 06/25/19 08:00 90 06/25/19 08:00 98.5 82 20 147/78 (101) 97 06/25/19 07:23 85 22 100 Room Air 21 85 22 97 06/25/19 04:00 98.6 82 21 149/89 (109) 98 06/25/19 04:00 Room Air 06/25/19 04:00 83 06/25/19 00:00 Room Air 06/25/19 00:00 93 06/25/19 00:00 98.3 94 22 135/67 (89) 95 06/24/19 23:23 84 22 98 Room Air 21 87 24 95 06/24/19 21:00 81 102/59 06/24/19 20:00 98.6 80 18 102/59 (73) 98 06/24/19 20:00 80 06/24/19 20:00 Room Air 06/24/19 16:00 Room Air 06/24/19 16:00 80 06/24/19 16:00 98.5 79 18 112/61 (78) 98 06/24/19 15:23 76 20 100 Room Air 21 77 22 98 Height (Feet): 5 Height (Inches): 11.00 Weight (Pounds): 143 General Appearance: WD/WN, no acute distress HEENT: normocephalic, atraumatic, anicteric, mucous membranes moist, pharynx normal, supple, no JVD Respiratory/Chest: chest wall non-tender, no respiratory distress, no accessory muscle use, decreased breath sounds, expiratory wheezing Cardiovascular: normal peripheral pulses, normal rate, regular rhythm, no gallop/murmur, no JVD Abdomen: normal bowel sounds, soft, non tender, no organomegaly, non distended , no mass, no scars Genitourinary: normal external genitalia Extremities: no cyanosis, no clubbing Skin: no rash, no lesions, no ulcers Neurologic/Psychiatric: awake overnight monitor II-XII grossly normal, alert, responsive Lymphatic: no neck adenopathy, no groin adenopathy Musculoskeletal: normal muscle bulk, no effusion Microbiology Date/Time Source Procedure Growth Status 06/23/19 20:40 Blood Blood Culture - Preliminary NO GROWTH AFTER 24 HOURS Resulted 06/23/19 20:20 Blood Blood Culture - Preliminary NO GROWTH AFTER 24 HOURS Resulted 06/24/19 13:00 Indwelling Cath Urine Culture - Preliminary NO GROWTH Resulted 06/23/19 21:30 Rectum Received Laboratory Tests Test 06/25/19 05:00 White Blood Count 8.1 K/UL (4.8-10.8) Red Blood Count 3.43 M/UL (4.70-6.10) L Hemoglobin 10.9 G/DL (14.2-18.0) L Hematocrit 32.7 % (42.0-52.0) L Mean Corpuscular Volume 95 FL (80-99) Mean Corpuscular Hemoglobin 31.9 PG (27.0-31.0) H Mean Corpuscular Hemoglobin Concent 33.4 G/DL (32.0-36.0) Red Cell Distribution Width 12.0 % (11.6-14.8) Platelet Count 141 K/UL (150-450) L Mean Platelet Volume 8.6 FL (6.5-10.1) Neutrophils (%) (Auto) 83.3 % (45.0-75.0) H Lymphocytes (%) (Auto) 6.7 % (20.0-45.0) L Monocytes (%) (Auto) 9.1 % (1.0-10.0) Eosinophils (%) (Auto) 0.5 % (0.0-3.0) Basophils (%) (Auto) 0.4 % (0.0-2.0) Sodium Level 143 MMOL/L (136-145) Potassium Level 4.3 MMOL/L (3.5-5.1) Chloride Level 111 MMOL/L (98-107) H Carbon Dioxide Level 23 MMOL/L (21-32) Anion Gap 9 mmol/L (5-15) Blood Urea Nitrogen 42 mg/dL (7-18) H Creatinine 1.8 MG/DL (0.55-1.30) H Estimat Glomerular Filtration Rate mL/min (>60) Glucose Level 119 MG/DL (74-106) H Calcium Level 8.2 MG/DL (8.5-10.1) L Troponin I 0.324 ng/mL (0.000-0.056) Pro-B-Type Natriuretic Peptide 3348 pg/mL (0-125) H Random Vancomycin Level 6.6 ug/mL Current Medications Medications (Trade) Dose Ordered Sig/Candace Route PRN Reason Start Time Stop Time Status Last Admin Dose Admin Acetaminophen (Tylenol) 650 mg Q6H PRN ORAL Mild Pain/Temp > 100.5 06/24/19 01:00 07/24/19 00:59 Albuterol/ Ipratropium (Albuterol/ Ipratropium) 3 ml Q8HRT HHN 06/24/19 07:00 06/29/19 06:59 06/25/19 07:23 Allopurinol (Zyloprim) 100 mg DAILY ORAL 06/24/19 09:00 07/24/19 08:59 06/25/19 09:25 Aspirin (ASA) 81 mg DAILY ORAL 06/24/19 09:00 07/24/19 08:59 06/25/19 09:23 Ferrous Sulfate (Feosol) 325 mg DAILY ORAL 06/24/19 09:00 07/24/19 08:59 06/25/19 09:24 Heparin Sodium (Porcine) (Heparin 5000 units/ml) 5,000 units EVERY 12 HOURS SUBQ 06/24/19 09:00 07/24/19 08:59 06/25/19 09:25 Losartan Potassium (Cozaar) 50 mg DAILY ORAL 06/24/19 09:00 07/24/19 08:59 06/25/19 09:24 Megestrol Acetate (Megace) 400 mg TWICE A DAY ORAL 06/24/19 18:00 07/24/19 17:59 06/25/19 09:22 Memantine (Namenda) 10 mg TWICE A DAY ORAL 06/24/19 09:00 07/24/19 08:59 06/25/19 09:23 Metoprolol Tartrate (Lopressor) 25 mg Q12HR ORAL 06/24/19 21:00 07/24/19 20:59 06/25/19 09:23 Pantoprazole (Protonix) 40 mg EVERY 12 HOURS IVP 06/24/19 09:00 07/24/19 08:59 06/25/19 09:22 Piperacillin Sod/ Tazobactam Sod 3.375 gm/Sodium Chloride 110 ml @ 27.5 mls/hr EVERY 8 HOURS IVPB 06/25/19 09:00 06/30/19 08:59 06/25/19 10:34 Sodium Chloride 1,000 ml @ 75 mls/hr [id number] IV 06/24/19 09:15 07/24/19 09:14 06/25/19 08:40 Vancomycin HCl (Vanco rx to dose) 1 ea DAILY PRN MISC Per rx protocol 06/24/19 09:30 07/24/19 09:29 Earnest Gu M.D. Jun 25, 2019 13:48
--- NOTE | 2019-06-25 15:07 | Diagnostic Imaging Report ---
Indication: Cough, shortness of breath Technique: One view of the chest Comparison: 06/23/2019 Findings: Large diaphragmatic hernia again demonstrated. The lungs and pleural spaces are clear. Heart size is normal. There is no significant interim change Impression: Large diaphragmatic hernia noted Impression: Unchanged, over 2 days, findings as above.
[2019-06-25 16:00] VITALS: BP 164/85
--- NOTE | 2019-06-25 18:43 | NUR ---
NURSE NOTES: Patient breathing rapidly. RT called for nasal cannula or venturi mask. Patient placed on continuous O2 monitoring. Will continue to monitor. Oxygen saturation 93%.
--- NOTE | 2019-06-25 19:15 | NUR ---
HAND-OFF: Report given to NIKKY Graham. Patient VS stable at this time. Patient on nasal cannula 2L for slight shortness of breath. O2 saturation 97% at this time. Endorsed to follow up.
--- NOTE | 2019-06-25 19:30 | NUR ---
NURSE NOTES: Received pt appeared fatigue , and confused , speaks Farsi only, SR on the monitor, Bp stable, afebrile. On 02 at 2L/NC Resp even and spont. No SOB noted. IVF at 75ml/hr infusing well per RT forearm. Site atraumatic. Pt is incontinent in urine, cleaned up pt. Skiin remained intact. No cp nor SOb noted. Will continue to monitor.
[2019-06-25 20:00] VITALS: BP 150/88
--- NOTE | 2019-06-25 21:00 | NUR ---
NURSE NOTES: family at bedside- updated with pts condition. Verbalized understanding.
[2019-06-25] MEDS ORDERED: NS 275ml ONE (22:37)
--- NOTE | 2019-06-25 23:00 | Consultation ---
DATE OF CONSULTATION: 06/24/2019 INFECTIOUS DISEASES CONSULTATION CONSULTING PHYSICIAN: Earnest Gu M.D. REQUESTING PHYSICIAN: Joellen Lara M.D. REASON FOR CONSULTATION: Leukocytosis, possible sepsis with hypotension. Recommendation for antibiotics treatment. HISTORY OF PRESENT ILLNESS: The patient is an 84-year-old Taj[place] male with past medical history of severe dementia, hypertension, FL, COPD, CVA with hemiplegia, hyperlipidemia, and gout, was sent from [facility] for syncopal episode versus cardiac arrest to [facility] emergency room. As per the record from [facility], the patient was transitioning from the wheelchair to the bed, became unresponsive, and no pulse could be detected. CPR was initiated at the [facility] and his pulse came back. Paramedics were called and the patient was brought into [facility] emergency room for further evaluation and management. The patient was found to be hypotensive. His white count was found to be elevated concerning for sepsis. So, he was started on vancomycin and cefepime by the primary physician and Infectious Disease consultation was requested for antibiotics treatment and further management. As of note, the patient is poor historian and cannot provide any history. History was mainly obtained from the medical record and nursing staff. PAST MEDICAL HISTORY: Significant for severe dementia, non-ST FL, renal failure chronic, hyperlipidemia, COPD, CVA, and gout. PAST SURGICAL HISTORY: Negative. None on record. MEDICATION: Currently, he is on vancomycin and cefepime. For the rest of his medications, please refer to MARs. ALLERGIES: No known drug allergy. FAMILY HISTORY: Unable to obtain. REVIEW OF SYSTEMS: Unable to obtain. The patient cannot provide any history. PHYSICAL EXAMINATION: VITAL SIGNS: Temperature 98.5, pulse 80, respirations 18, blood pressure 112/61, and saturation 98% on room air. GENERAL: An elderly male, lying in bed, altered, not in acute distress, nonverbal, does not follow command. HEENT: Normocephalic and atraumatic. Pupils reactive to light equally. Moist oral mucosa. No exudate. NECK: Supple. No lymphadenopathy. CARDIOVASCULAR: Regular rate and rhythm. No murmur or gallop. LUNGS: Diminished breathing sounds at the bases with expiratory wheezing. Normal breathing effort. ABDOMEN: Soft, nontender, and nondistended. Normal bowel sounds. No hepatosplenomegaly or ascites. EXTREMITY: No edema or cyanosis. No clubbing. SKIN: No rash. No hives. No ulceration. GENITOURINARY: Normal genitalia. No warts or lesion. LABORATORY AND DIAGNOSTIC DATA: Labs showed white count of 12.5, hemoglobin of 12.5, and platelet count of 222,000. BUN of 60, creatinine of 2, and glucose of 116. Troponin 0.264. Urinalysis showed 2 to 4 wbc, negative nitrite, and negative leukocyte esterase. IMAGING: Chest x-ray showed massive diaphragmatic hernia with uncertain kind of hernia based on the available image. No definitive acute process. Head CT scan showed extensive chronic abnormalities with evidence of multiple prior infarcts. Negative for acute intracranial bleed or mass effect. ASSESSMENT AND RECOMMENDATION: 1. Leukocytosis with hypotension, rule out sepsis. We will continue vancomycin and switch cefepime to Zosyn, empiric coverage to cover for possible aspiration pneumonia due to his altered mental status. We will repeat chest x-ray tomorrow to confirm aspiration precaution. 2. Syncope and possible cardiac arrest, rule out cardiac sources. Cardiology is following. Continue tele monitor. 3. Hypotension, suspect cardiac, rule out sepsis. We will continue vancomycin and Zosyn for now pending blood culture results. 4. Altered mental status, suspect due to cardiac reason with hypotension. Continue to monitor closely in tele. Further management as per primary. Avoid sedatives. Thank you for the consult. ID will continue to follow. Earnest Gu M.D. DR: HANS JOB#: [id number] CC:
[2019-06-26] VITALS: BP 114/53
--- NOTE | 2019-06-26 | NUR ---
NURSE NOTES: Incontinent, cleaned up pt, Pt resist, but able to turn to sides with resistance,
--- NOTE | 2019-06-26 02:30 | NUR ---
HAND-OFF: Report given to Handy for continuity of care,.
--- NOTE | 2019-06-26 02:35 | NUR ---
NURSE NOTES: Received report from NIKKY Neal. Observed pt sleeping in the bed. No acute distress noted at this time. SR on grounds and nursery specialist. On 2L NC, no signs of sob noted. A/O x1, confused and combative. No signs of pain noted. No acute distress noted at this time. Bed in the lowest position. Side rails up x3. Will continue to monitor.
[2019-06-26 04:00] VITALS: BP 135/92
[2019-06-26 05:13] LABS: BASOPHILS % (AUTO) 0.8 % (0.0-2.0); EOSINOPHILS % (AUTO) 1.1 % (0.0-3.0); HEMATOCRIT 33.2 % (42.0-52.0); LYMPHOCYTES % (AUTO) 9.1 % (20.0-45.0); MEAN CORPUSCULAR VOLUME 97 FL (80-99); MONOCYTES % (AUTO) 11.4 % (1.0-10.0); NEUTROPHILS % (AUTO) 77.6 % (45.0-75.0); PLATELET COUNT 142 K/UL (150-450); RED BLOOD COUNT 3.42 M/UL (4.70-6.10); RED CELL DISTRIBUTION WIDTH 12.3 % (11.6-14.8); WHITE BLOOD COUNT 7.9 K/UL (4.8-10.8)
[2019-06-26] MEDS: Zosyn 3.375gm q8h **Extended infusion IVPB SCH ×4 (05:33→13:33)
[2019-06-26 05:40] LABS: ANION GAP 6 mmol/L (5-15); BLOOD UREA NITROGEN 31 mg/dL (7-18); CALCIUM 8.4 MG/DL (8.5-10.1); CARBON DIOXIDE 26 MMOL/L (21-32); CHLORIDE 113 MMOL/L (98-107); CREATININE 1.7 MG/DL (0.55-1.30); POTASSIUM 4.8 MMOL/L (3.5-5.1); SODIUM 145 MMOL/L (136-145)
[2019-06-26] MEDS: Albuterol/Ipratropium 3ml neb HHN SCH ×3 (06:45→22:47)
--- NOTE | 2019-06-26 07:09 | NUR ---
HAND-OFF: Report given to NIKKY Russell. No distress noted at this time.
--- NOTE | 2019-06-26 07:10 | NUR ---
NURSE NOTES: Received patient at bedside. On nasal cannula at 2LPM. Asleep, easy to arouse. On continuous IVF per order. Bed in lowest position Will continue plan of care.
[2019-06-26 08:00] VITALS: BP 134/108
[2019-06-26] MEDS ORDERED: Vancomycin 1gm/D5W 275ml IVPB ONE ×2 (08:00)
[2019-06-26] MEDS: Memantine 10mg tab ORAL SCH ×2 (08:56→17:36)
[2019-06-26] MEDS: Megace 400mg/10ml Susp ORAL SCH ×2 (08:56→17:36)
[2019-06-26] MEDS: Pantoprazole Inj IVP SCH ×2 (08:56→20:02)
[2019-06-26] MEDS: Losartan 50mg tab ORAL SCH (08:56)
[2019-06-26] MEDS: Aspirin Baby 81mg ORAL SCH (08:57)
[2019-06-26] MEDS: Metoprolol 25mg tab ORAL SCH ×2 (08:57→20:00)
[2019-06-26] MEDS: Allopurinol 100mg Tab ORAL SCH (08:57)
[2019-06-26] MEDS: Heparin 5000 units/ml inj SUBQ SCH ×2 (09:08→20:02)
--- NOTE | 2019-06-26 09:10 | NUR ---
NURSE NOTES: Patient's at bedside.
--- NOTE | 2019-06-26 09:12 | General Progress Note ---
Assessment/Plan Status: stable Assessment/Plan: 1. Leukocytosis - improved. follow cx's. ID following. will cont prophylactic abx for possible sepsis for now. Urine cx negative but it was done after he was started on Abx. 2. HTN - cont home meds. 3. Elevated Troponin - probably 2nd to CHRIS. 4. CHRIS - will cont NS at 75 cc/hr and recheck labs tomorrow. 5. Hyperkalemia - resolved. 6. Syncope VS cardiac arrest at rehab. 7. NSTEMI - will consult Cardiology. 8. Severe Dementia 9. COPD 10. H/o CVA wth MCA disturbution 11. HLD - cont home med. 12. Gout - cont allopurinol. Subjective Date patient seen: Jun 26, 2019 Time patient seen: 09:00 Constitutional: Reports: weakness HEENT: Reports: no symptoms Cardiovascular: Reports: no symptoms Respiratory: Reports: no symptoms Gastrointestinal/Abdominal: Reports: no symptoms Genitourinary: Reports: no symptoms Neurologic/Psychiatric: Reports: no symptoms Endocrine: Reports: no symptoms Hematologic/Lymphatic: Reports: no symptoms Allergies: Coded Allergies: No Known Allergies (Unverified , 05/02/19) Subjective This morning he is doing well. No sob or chest pain. no fever or chills. Objective Last 24 Hour Vital Signs Date Time Temp Pulse Resp B/P (MAP) Pulse Ox O2 Delivery O2 Flow Rate FiO2 06/26/19 08:57 108 134/108 06/26/19 08:56 134/108 06/26/19 08:00 97.3 83 26 134/108 (117) 99 108 06/26/19 08:00 Room Air 06/26/19 06:55 84 20 100 Nasal Cannula 2.0 28 88 22 99 06/26/19 04:00 98.1 83 24 135/92 (106) 99 06/26/19 04:00 Room Air 06/26/19 03:24 77 06/26/19 00:00 Room Air 06/26/19 00:00 98.2 90 20 114/53 (73) 95 06/25/19 23:30 99 06/25/19 22:28 87 20 99 Nasal Cannula 2.0 28 88 20 98 06/25/19 20:57 99 150/88 06/25/19 20:00 82 06/25/19 20:00 99.0 90 20 150/88 (108) 98 06/25/19 20:00 Room Air 06/25/19 16:00 Room Air 06/25/19 16:00 99.0 90 20 164/85 (111) 98 06/25/19 16:00 83 06/25/19 15:00 84 22 99 Room Air 21 81 20 97 06/25/19 12:00 83 06/25/19 12:00 Room Air 06/25/19 12:00 98.7 88 20 150/71 (97) 96 06/25/19 09:24 157/78 06/25/19 09:23 82 157/78 Intake and Output 06/25/19 06/26/19 18:59 06:59 Intake Total 1525.000 ml 1230.0 ml Balance 1525.000 ml 1230.0 ml Intake Oral 240 ml 0 ml IV Total 1285.000 ml 1230.0 ml # Voids 4 2 Laboratory Tests 06/26/19 04:20: White Blood Count 7.9, Red Blood Count 3.42L, Hemoglobin 11.0L, Hematocrit 33.2L , Mean Corpuscular Volume 97, Mean Corpuscular Hemoglobin 32.2H, Mean Corpuscular Hemoglobin Concent 33.1, Red Cell Distribution Width 12.3, Platelet Count 142L, Mean Platelet Volume 8.3, Neutrophils (%) (Auto) 77.6H, Lymphocytes (%) (Auto) 9.1L, Monocytes (%) (Auto) 11.4H, Eosinophils (%) (Auto) 1.1, Basophils (%) (Auto) 0.8, Sodium Level 145, Potassium Level 4.8, Chloride Level 113H, Carbon Dioxide Level 26, Anion Gap 6, Blood Urea Nitrogen 31H, Creatinine 1.7H, Estimat Glomerular Filtration Rate , Glucose Level 114H, Calcium Level 8.4L, Random Vancomycin Level 10.5 Height (Feet): 5 Height (Inches): 11.00 Weight (Pounds): 143 General Appearance: no apparent distress, alert EENT: normal ENT inspection Neck: non-tender, supple Cardiovascular: normal rate, regular rhythm Respiratory/Chest: lungs clear, normal breath sounds Abdomen: non tender, soft Extremities: non-tender Edema: no edema noted Arm (L), no edema noted Arm (R), no edema noted Leg (L), no edema noted Leg (R), no edema noted Pedal (L), no edema noted Pedal (R), no edema noted Generalized Neurologic: alert, responsive Skin: warm/dry Joellen Lara MD Jun 26, 2019 09:12
--- NOTE | 2019-06-26 09:40 | NUR ---
NURSE NOTES: Transfer order to med surg unit obtained from Dr. Lara. Charge nurse made aware.
[2019-06-26] MEDS ORDERED: Albuterol/Ipratropium 3ml neb HHN PRN (09:45)
--- NOTE | 2019-06-26 09:54 | Cardiac Electrophysiology PN ---
Assessment/Plan Assessment/Plan 1. Troponin leak. The levels were elevated in the previous admission also. EKG showed no acute changes and no significant change compared to the previous EKG. Troponin elevation could be due to renal failure as the creatinine was 2.6. No CP. EF 60% 2. Hypotension, resolved. 3. HTN On metoprolol 25 mg b.i.d. and losartan 50 mg daily and p.r.n. clonidine 4. Status post questionable cardiac arrest, currently in sinus rhythm with stable hemodynamics. No arrhythmias on tele. 5. Renal failure, partially azotemia with BUN of 65 and creatinine 2.6. Improved Cr to 1.8 with hydration. 6. Hyperkalemia due to renal failure. 7. CVA with left hemiplegia. 8. Dysphagia, on pureed diet. 9. History of gout. 10. DNR and DNI DW and RN at bedside Subjective Subjective More alert. RN and at bedside.No Arrhythmias overnight. Objective Last 24 Hour Vital Signs Date Time Temp Pulse Resp B/P (MAP) Pulse Ox O2 Delivery O2 Flow Rate FiO2 06/26/19 08:57 108 134/108 06/26/19 08:56 134/108 06/26/19 08:00 97.3 83 26 134/108 (117) 99 108 06/26/19 08:00 Room Air 06/26/19 07:46 81 06/26/19 06:55 84 20 100 Nasal Cannula 2.0 28 88 22 99 06/26/19 04:00 98.1 83 24 135/92 (106) 99 06/26/19 04:00 Room Air 06/26/19 03:24 77 06/26/19 00:00 Room Air 06/26/19 00:00 98.2 90 20 114/53 (73) 95 06/25/19 23:30 99 06/25/19 22:28 87 20 99 Nasal Cannula 2.0 28 88 20 98 06/25/19 20:57 99 150/88 06/25/19 20:00 82 06/25/19 20:00 99.0 90 20 150/88 (108) 98 06/25/19 20:00 Room Air 06/25/19 16:00 Room Air 06/25/19 16:00 99.0 90 20 164/85 (111) 98 06/25/19 16:00 83 06/25/19 15:00 84 22 99 Room Air 21 81 20 97 06/25/19 12:00 83 06/25/19 12:00 Room Air 06/25/19 12:00 98.7 88 20 150/71 (97) 96 Intake and Output 06/25/19 06/26/19 18:59 06:59 Intake Total 1525.000 ml 1230.0 ml Balance 1525.000 ml 1230.0 ml Intake Oral 240 ml 0 ml IV Total 1285.000 ml 1230.0 ml # Voids 4 2 Laboratory Tests Test 06/26/19 04:20 White Blood Count 7.9 K/UL (4.8-10.8) Red Blood Count 3.42 M/UL (4.70-6.10) L Hemoglobin 11.0 G/DL (14.2-18.0) L Hematocrit 33.2 % (42.0-52.0) L Mean Corpuscular Volume 97 FL (80-99) Mean Corpuscular Hemoglobin 32.2 PG (27.0-31.0) H Mean Corpuscular Hemoglobin Concent 33.1 G/DL (32.0-36.0) Red Cell Distribution Width 12.3 % (11.6-14.8) Platelet Count 142 K/UL (150-450) L Mean Platelet Volume 8.3 FL (6.5-10.1) Neutrophils (%) (Auto) 77.6 % (45.0-75.0) H Lymphocytes (%) (Auto) 9.1 % (20.0-45.0) L Monocytes (%) (Auto) 11.4 % (1.0-10.0) H Eosinophils (%) (Auto) 1.1 % (0.0-3.0) Basophils (%) (Auto) 0.8 % (0.0-2.0) Sodium Level 145 MMOL/L (136-145) Potassium Level 4.8 MMOL/L (3.5-5.1) Chloride Level 113 MMOL/L (98-107) H Carbon Dioxide Level 26 MMOL/L (21-32) Anion Gap 6 mmol/L (5-15) Blood Urea Nitrogen 31 mg/dL (7-18) H Creatinine 1.7 MG/DL (0.55-1.30) H Estimat Glomerular Filtration Rate mL/min (>60) Glucose Level 114 MG/DL (74-106) H Calcium Level 8.4 MG/DL (8.5-10.1) L Random Vancomycin Level 10.5 ug/mL Microbiology Date/Time Source Procedure Growth Status 06/23/19 20:40 Blood Blood Culture - Preliminary NO GROWTH AFTER 48 HOURS Resulted 06/23/19 20:20 Blood Blood Culture - Preliminary NO GROWTH AFTER 48 HOURS Resulted 06/24/19 13:00 Indwelling Cath Urine Culture - Preliminary NO GROWTH AFTER 24 HOURS Resulted 06/23/19 21:30 Rectum VRE Culture - Final NO VANCOMYCIN RESISTANT ENTEROCOCCUS ... Complete Objective HEAD AND NECK: No JVD. LUNGS: Coarse rhonchi . CARDIOVASCULAR: Regular S1 and S2 with no gallop. ABDOMEN: Soft. EXTREMITIES: No pitting edema. Joaquim Pérez MD Jun 26, 2019 09:54
--- NOTE | 2019-06-26 10:00 | NUR ---
NURSE NOTES: Dr Lara at bedside. Discussed plan of care with patient's .
--- NOTE | 2019-06-26 11:39 | NUR ---
RD ASSESSMENT & RECOMMENDATIONS SEE CARE ACTIVITY FOR COMPLETE ASSESSMENT DAILY ESTIMATED NEEDS: Needs based on cardiac, renal 65kg 25-30 kcals/kg [id number] total kcals 1-1.5 g protein/kg 65-98 g total protein 20-30 mL/kg 3552-8664 total fluid mLs NUTRITION DIAGNOSIS: Swallowing difficulty r/t dysphagia as evidenced by RETAIL ASSISTANT jairon jacinto for puree texture w/ NTL. CURRENT DIET:Renal puree NTL PO DIET RECOMMENDATIONS: LOW NA DIET (texture per RETAIL ASSISTANT) ADDITIONAL RECOMMENDATIONS: 1) Calibrated bed scale wt for accurate CBW 2) Add ensure enlive tid w/ meals No indication for renal at this time 3) Check A1C / mildly elev Bg 4) Monitor lytes daily
[2019-06-26 12:00] VITALS: BP 94/57
--- NOTE | 2019-06-26 12:45 | Diagnostic Imaging Report ---
APPROVED REPORT CPT Code: 61181 Present Symptoms Comments: BILATERAL LEGS PAIN. BILATERAL: Imaging reveals a patent deep venous system bilaterally. There is no evidence of thrombus within the femoral, popliteal or tibial segments. The greater saphenous veins are also within normal limits. Doppler indicates normal spontaneous flow within these segments.
--- NOTE | 2019-06-26 15:11 | Cardiology Report ---
APPROVED REPORT EKG Measurement Heart [id number] Normal sinus rhythm Moderate voltage criteria for LVH, may be normal variant Borderline ECG
[2019-06-26 16:00] VITALS: BP 124/68
--- NOTE | 2019-06-26 16:13 | Infectious Diseases Prog Note ---
Assessment/Plan Problems: (1) Leukocytosis Assessment & Plan: suspect reactive with no evidence of sepsis , will stop vancomycin and zosyn empirically pending . repeated CXR ruled out aspiration pneumonia (2) Syncope Assessment & Plan: possible cardiac arrest , rule out cardiac source , cardiology is following , continue tele monitor (3) Hypotension Assessment & Plan: rule out sepsis , will continue vancomycin and zosyn pending blood culture (4) Altered mental status Assessment & Plan: suspect due to cardiac reason with hypotension Subjective ROS Limited/Unobtainable: Yes Allergies: Coded Allergies: No Known Allergies (Unverified , 05/02/19) Subjective He was resting in bed confused and combative , no response to verbal commands, demented, not in distress Objective Vital Signs Last 24 Hour Vital Signs Date Time Temp Pulse Resp B/P (MAP) Pulse Ox O2 Delivery O2 Flow Rate FiO2 06/26/19 16:00 99.0 96 24 124/68 (86) 96 06/26/19 14:48 82 20 100 Nasal Cannula 2.0 28 78 20 98 06/26/19 12:00 97.9 84 21 94/57 (69) 97 06/26/19 12:00 Room Air 06/26/19 11:52 82 06/26/19 10:20 66 21 100 Nasal Cannula 2.0 28 70 24 98 06/26/19 08:57 108 134/108 06/26/19 08:56 134/108 06/26/19 08:00 97.3 83 26 134/108 (117) 99 108 06/26/19 08:00 Room Air 06/26/19 07:46 81 06/26/19 06:55 84 20 100 Nasal Cannula 2.0 28 88 22 99 06/26/19 04:00 98.1 83 24 135/92 (106) 99 06/26/19 04:00 Room Air 06/26/19 03:24 77 06/26/19 00:00 Room Air 06/26/19 00:00 98.2 90 20 114/53 (73) 95 06/25/19 23:30 99 06/25/19 22:28 87 20 99 Nasal Cannula 2.0 28 88 20 98 06/25/19 20:57 99 150/88 06/25/19 20:00 82 06/25/19 20:00 99.0 90 20 150/88 (108) 98 06/25/19 20:00 Room Air Height (Feet): 5 Height (Inches): 11.00 Weight (Pounds): 143 General Appearance: WD/WN, no acute distress HEENT: normocephalic, atraumatic, anicteric, mucous membranes moist, PERRL Respiratory/Chest: chest wall non-tender, lungs clear, normal breath sounds, no respiratory distress, no accessory muscle use Cardiovascular: normal peripheral pulses, normal rate, regular rhythm, no gallop/murmur, no JVD Abdomen: normal bowel sounds, soft, non tender, no organomegaly, non distended , no mass, no scars Genitourinary: normal external genitalia Extremities: no cyanosis, no clubbing Skin: no rash, no lesions, no ulcers Neurologic/Psychiatric: 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 II-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 grossly normal, alert, unresponsiveness Lymphatic: no neck adenopathy, no groin adenopathy Musculoskeletal: normal muscle bulk, no effusion Microbiology Date/Time Source Procedure Growth Status 06/23/19 20:40 Blood Blood Culture - Preliminary NO GROWTH AFTER 48 HOURS Resulted 06/23/19 20:20 Blood Blood Culture - Preliminary NO GROWTH AFTER 48 HOURS Resulted 06/23/19 21:30 Nasal Nares MRSA Culture - Final Staphylococcus Aureus - Mrsa Complete 06/24/19 13:00 Indwelling Cath Urine Culture - Preliminary NO GROWTH AFTER 24 HOURS Resulted 06/23/19 21:30 Rectum VRE Culture - Final NO VANCOMYCIN RESISTANT ENTEROCOCCUS ... Complete Laboratory Tests Test 06/26/19 04:20 White Blood Count 7.9 K/UL (4.8-10.8) Red Blood Count 3.42 M/UL (4.70-6.10) L Hemoglobin 11.0 G/DL (14.2-18.0) L Hematocrit 33.2 % (42.0-52.0) L Mean Corpuscular Volume 97 FL (80-99) Mean Corpuscular Hemoglobin 32.2 PG (27.0-31.0) H Mean Corpuscular Hemoglobin Concent 33.1 G/DL (32.0-36.0) Red Cell Distribution Width 12.3 % (11.6-14.8) Platelet Count 142 K/UL (150-450) L Mean Platelet Volume 8.3 FL (6.5-10.1) Neutrophils (%) (Auto) 77.6 % (45.0-75.0) H Lymphocytes (%) (Auto) 9.1 % (20.0-45.0) L Monocytes (%) (Auto) 11.4 % (1.0-10.0) H Eosinophils (%) (Auto) 1.1 % (0.0-3.0) Basophils (%) (Auto) 0.8 % (0.0-2.0) Sodium Level 145 MMOL/L (136-145) Potassium Level 4.8 MMOL/L (3.5-5.1) Chloride Level 113 MMOL/L (98-107) H Carbon Dioxide Level 26 MMOL/L (21-32) Anion Gap 6 mmol/L (5-15) Blood Urea Nitrogen 31 mg/dL (7-18) H Creatinine 1.7 MG/DL (0.55-1.30) H Estimat Glomerular Filtration Rate mL/min (>60) Glucose Level 114 MG/DL (74-106) H Calcium Level 8.4 MG/DL (8.5-10.1) L Random Vancomycin Level 10.5 ug/mL Current Medications Medications (Trade) Dose Ordered Sig/Candace Route PRN Reason Start Time Stop Time Status Last Admin Dose Admin Acetaminophen (Tylenol) 650 mg Q6H PRN ORAL Mild Pain/Temp > 100.5 06/24/19 01:00 07/24/19 00:59 Albuterol/ Ipratropium (Albuterol/ Ipratropium) 3 ml Q4H PRN HHN Shortness of Breath 06/26/19 09:45 07/01/19 09:44 06/26/19 10:10 Albuterol/ Ipratropium (Albuterol/ Ipratropium) 3 ml Q8HRT HHN 06/24/19 07:00 06/29/19 06:59 06/26/19 14:38 Allopurinol (Zyloprim) 100 mg DAILY ORAL 06/24/19 09:00 07/24/19 08:59 06/26/19 08:57 Aspirin (ASA) 81 mg DAILY ORAL 06/24/19 09:00 07/24/19 08:59 06/26/19 08:57 Ferrous Sulfate (Feosol) 325 mg DAILY ORAL 06/24/19 09:00 07/24/19 08:59 9/5/19 08:57 Heparin Sodium (Porcine) (Heparin 5000 units/ml) 5,000 units EVERY 12 HOURS SUBQ 06/24/19 09:00 07/24/19 08:59 06/26/19 09:08 Losartan Potassium (Cozaar) 50 mg DAILY ORAL 06/24/19 09:00 07/24/19 08:59 06/26/19 08:56 Megestrol Acetate (Megace) 400 mg TWICE A DAY ORAL 06/24/19 18:00 07/24/19 17:59 06/26/19 08:56 Memantine (Namenda) 10 mg TWICE A DAY ORAL 06/24/19 09:00 07/24/19 08:59 06/26/19 08:56 Metoprolol Tartrate (Lopressor) 25 mg Q12HR ORAL 06/24/19 21:00 07/24/19 20:59 06/26/19 08:57 Pantoprazole (Protonix) 40 mg EVERY 12 HOURS IVP 06/24/19 09:00 07/24/19 08:59 06/26/19 08:56 Piperacillin Sod/ Tazobactam Sod 3.375 gm/Sodium Chloride 110 ml @ 27.5 mls/hr EVERY 8 HOURS IVPB 06/25/19 09:00 06/30/19 08:59 06/26/19 13:33 Sodium Chloride 1,000 ml @ 75 mls/hr [id number] IV 06/24/19 09:15 07/24/19 09:14 06/26/19 12:34 Vancomycin HCl (Vanco rx to dose) 1 ea DAILY PRN MISC Per rx protocol 06/24/19 09:30 07/24/19 09:29 Earnest Gu M.D. Jun 26, 2019 16:13
--- NOTE | 2019-06-26 19:30 | NUR ---
HAND-OFF: Report given to Ann Marie Morris RN.
--- NOTE | 2019-06-26 19:32 | NUR ---
NURSE NOTES: received pt from Yvonne SHER., pt is in bed awake Alert to name, daughter at the bedside. 2L NC running and pt is O2sat is 97%. bed in lowest position, locked, and alarmed. side rails x 2, and call light within easy to reach. Right FA 22G S 75cc/hr. IV site intact and patent. will continue plan of care and continue safety measures.
[2019-06-26 20:00] VITALS: BP 103/57
[2019-06-27] VITALS: BP 100/66
[2019-06-27 04:00] VITALS: BP 133/85
[2019-06-27 04:38] LABS: BASOPHILS % (AUTO) 0.6 % (0.0-2.0); EOSINOPHILS % (AUTO) 1.8 % (0.0-3.0); HEMATOCRIT 31.5 % (42.0-52.0); HEMOGLOBIN 10.5 G/DL (14.2-18.0); LYMPHOCYTES % (AUTO) 9.5 % (20.0-45.0); MEAN CORPUSCULAR VOLUME 97 FL (80-99); MONOCYTES % (AUTO) 11.3 % (1.0-10.0); NEUTROPHILS % (AUTO) 76.9 % (45.0-75.0); PLATELET COUNT 145 K/UL (150-450); RED BLOOD COUNT 3.26 M/UL (4.70-6.10); RED CELL DISTRIBUTION WIDTH 12.4 % (11.6-14.8); WHITE BLOOD COUNT 6.7 K/UL (4.8-10.8)
[2019-06-27 04:56] LABS: ANION GAP 7 mmol/L (5-15); BLOOD UREA NITROGEN 21 mg/dL (7-18); CALCIUM 8.5 MG/DL (8.5-10.1); CARBON DIOXIDE 27 MMOL/L (21-32); CHLORIDE 111 MMOL/L (98-107); CREATININE 1.5 MG/DL (0.55-1.30); POTASSIUM 4.3 MMOL/L (3.5-5.1); SODIUM 144 MMOL/L (136-145)
[2019-06-27] MEDS: Albuterol/Ipratropium 3ml neb HHN SCH ×2 (06:42→14:35)
--- NOTE | 2019-06-27 07:05 | NUR ---
NURSE NOTES: received patient report from kamala diallo. patient is on bed asleep. not in acute distress. no reports of srrythmias last night. bed is low and locked for safety. will follow plan of care.
--- NOTE | 2019-06-27 07:09 | NUR ---
HAND-OFF: Report given to Fernanda SHER.
--- NOTE | 2019-06-27 07:30 | NUR ---
NURSE NOTES: called to give report no nurse available to take pt. C.N in meeting will call back.
--- NOTE | 2019-06-27 07:45 | NUR ---
NURSE NOTES: Endorsement received from NIKKY Michael. Patient currently awake, responsive to name. no c/o pain, per .pupils 3mm, brisk. verbal, A/Ox1. Lung sounds diminished bilateral. on 2L NC sating 99%. abdomen soft, round. no BM this shift. feeder assist. diet renal puree, moist nectar thick. Normoactive bowel sounds noted. pt in continent, straw colored urine. NS running at 75ml/hr, RT FA 22 G. intact and patent.skin intact. Head of bed elevated. Locked, low position. Call light within reach. Bed alarm on. HOB >30. fall and contact precautions in place. will continue to monitor pt.
[2019-06-27 08:00] VITALS: BP 126/82
--- NOTE | 2019-06-27 08:00 | NUR ---
NURSE NOTES: called to give report, unsure who is assigned for handoff, once C.N back from meeting will call SDU.
--- NOTE | 2019-06-27 08:30 | NUR ---
NURSE NOTES: MD PINA HERE TO SEE PT, AT BEDSIDE. INFORMED WILL BE D/C TODAY. WILL CONTINUE SAME MEDICATION REGIMEN.
--- NOTE | 2019-06-27 08:59 | General Progress Note ---
Assessment/Plan Status: stable Assessment/Plan: 1. Leukocytosis - improved. all cx's negative and off empiric antibiotic. will D/C back to [facility] today. 2. HTN - cont home meds. 3. Elevated Troponin - probably 2nd to CHRIS. 4. CHRIS - D/C IVF. 5. Hyperkalemia - resolved. 6. Syncope VS cardiac arrest at rehab. 7. NSTEMI 8. Severe Dementia 9. COPD 10. H/o CVA wth MCA disturbution 11. HLD - cont home med. 12. Gout - cont allopurinol. Subjective Date patient seen: Jun 27, 2019 Time patient seen: 08:50 Constitutional: Reports: weakness HEENT: Reports: no symptoms Cardiovascular: Reports: no symptoms Respiratory: Reports: no symptoms Gastrointestinal/Abdominal: Reports: no symptoms Genitourinary: Reports: no symptoms Neurologic/Psychiatric: Reports: no symptoms Endocrine: Reports: no symptoms Hematologic/Lymphatic: Reports: no symptoms Allergies: Coded Allergies: No Known Allergies (Unverified , 05/02/19) Subjective This morning he is doing well. No sob or chest pain. no fever or chills. off antibiotic. All cultures negative. Objective Last 24 Hour Vital Signs Date Time Temp Pulse Resp B/P (MAP) Pulse Ox O2 Delivery O2 Flow Rate FiO2 06/27/19 06:52 79 22 98 Nasal Cannula 2.0 28 76 24 96 06/27/19 04:00 97.7 101 21 133/85 (101) 96 06/27/19 04:00 Nasal Cannula 2.0 06/27/19 03:33 106 06/27/19 00:00 97.7 82 21 100/66 (77) 98 06/27/19 00:00 Nasal Cannula 2.0 06/26/19 23:34 94 06/26/19 22:47 85 20 99 Nasal Cannula 2.0 28 81 20 96 06/26/19 20:00 Nasal Cannula 2.0 06/26/19 20:00 98.1 93 21 103/57 (72) 98 06/26/19 20:00 85 103/57 06/26/19 19:39 90 06/26/19 16:00 99.0 96 24 124/68 (86) 96 06/26/19 16:00 Nasal Cannula 2.0 06/26/19 15:29 87 06/26/19 14:48 82 20 100 Nasal Cannula 2.0 28 78 20 98 06/26/19 12:00 97.9 84 21 94/57 (69) 97 06/26/19 12:00 Room Air 06/26/19 11:52 82 06/26/19 10:20 66 21 100 Nasal Cannula 2.0 28 70 24 98 06/26/19 08:57 108 134/108 Intake and Output 06/26/19 06/27/19 19:00 07:00 Intake Total 1095.0 ml 820 ml Balance 1095.0 ml 820 ml Intake Oral 120 ml IV Total 975.0 ml 820 ml # Voids 2 2 Laboratory Tests 06/27/19 03:50: White Blood Count 6.7, Red Blood Count 3.26L, Hemoglobin 10.5L, Hematocrit 31.5L , Mean Corpuscular Volume 97, Mean Corpuscular Hemoglobin 32.2H, Mean Corpuscular Hemoglobin Concent 33.3, Red Cell Distribution Width 12.4, Platelet Count 145L, Mean Platelet Volume 9.2, Neutrophils (%) (Auto) 76.9H, Lymphocytes (%) (Auto) 9.5L, Monocytes (%) (Auto) 11.3H, Eosinophils (%) (Auto) 1.8, Basophils (%) (Auto) 0.6, Sodium Level 144, Potassium Level 4.3, Chloride Level 111H, Carbon Dioxide Level 27, Anion Gap 7, Blood Urea Nitrogen 21H, Creatinine 1.5H, Estimat Glomerular Filtration Rate , Glucose Level 121H, Calcium Level 8.5 Height (Feet): 5 Height (Inches): 11.00 Weight (Pounds): 143 General Appearance: no apparent distress, alert EENT: normal ENT inspection Neck: non-tender, supple Cardiovascular: normal rate, regular rhythm Respiratory/Chest: lungs clear, normal breath sounds Abdomen: normal bowel sounds, non tender, soft Extremities: non-tender Edema: no edema noted Arm (L), no edema noted Arm (R), no edema noted Leg (L), no edema noted Leg (R), no edema noted Pedal (L), no edema noted Pedal (R), no edema noted Generalized Neurologic: alert, responsive Skin: warm/dry Lymphatic: normal anterior cervical (L), normal anterior cervical (R), normal posterior cervical (L), normal posterior cervical (R), normal submandibular (L) , normal submandibular (R), normal supraclavicular (L), normal supraclavicular ( R), normal axillary (L), normal axillary (R), normal inguinal (L), normal inguinal (R), normal other Joellen Lara MD Jun 27, 2019 08:59
[2019-06-27] MEDS: Pantoprazole Inj IVP SCH (09:02)
[2019-06-27] MEDS: Megace 400mg/10ml Susp ORAL SCH (09:02)
[2019-06-27] MEDS: Memantine 10mg tab ORAL SCH (09:02)
[2019-06-27] MEDS: Aspirin Baby 81mg ORAL SCH (09:03)
[2019-06-27] MEDS: Allopurinol 100mg Tab ORAL SCH (09:03)
[2019-06-27] MEDS: Losartan 50mg tab ORAL SCH (09:05)
[2019-06-27] MEDS: Metoprolol 25mg tab ORAL SCH (09:06)
[2019-06-27] MEDS ORDERED: MEGACE ORA400 MG/10 ORAL (09:07)
[2019-06-27] MEDS ORDERED: Pantoprazole PO (09:07)
[2019-06-27] MEDS: Heparin 5000 units/ml inj SUBQ SCH (09:10)
--- NOTE | 2019-06-27 11:17 | NUR ---
NURSE NOTES: called [facility] spoke with Grace SHER, gave report. all questions answered, SBAR used. ETA 1300.
--- NOTE | 2019-06-27 11:22 | NUR ---
DISCHARGE PLANNING DISCHARGE ORDER NOTED Patient has been accepted to; [facility] [id number] [place] [address] Bed:105-B Skilled [phone] for Nurse to Nurse report [facility] ETA for transportation: 12:30pm
[2019-06-27 12:00] VITALS: BP 130/85
--- NOTE | 2019-06-27 12:04 | NUR ---
NURSE NOTES: at bedside. informed pt being discharged today back to [facility]. Patient currently awake, responsive to name. pt eat 80% lunch. verbal, A/Ox1. on 2L NC sating 100%. abdomen soft, round. no BM noted. Normoactive bowel sounds noted. pt in continent, straw colored urine, cleaned. NS running at 75ml/hr, RT FA 22 G. intact and patent. skin intact. Head of bed elevated. Call light within reach. Bed alarm on. HOB >30. fall and contact precautions in place. will continue to monitor pt.
--- NOTE | 2019-06-27 12:54 | Cardiac Electrophysiology PN ---
Assessment/Plan Assessment/Plan 1. Chronic Troponin leak. The levels were elevated in the previous admission also. EKG showed no acute changes and no significant change compared to the previous EKG. Troponin elevation could be due to renal failure as the creatinine was 2.6. No CP. EF 60% 2. Hypotension, resolved. 3. HTN On metoprolol 25 mg b.i.d. and losartan 50 mg daily and p.r.n. clonidine 4. Status post questionable cardiac arrest, currently in sinus rhythm with stable hemodynamics. No arrhythmias on tele. 5. Renal failure, partially azotemia with BUN of 65 and creatinine 2.6. Improved Cr to 1.8 with hydration. 6. Hyperkalemia due to renal failure. 7. CVA with left hemiplegia. 8. Dysphagia, on pureed diet. 9. History of gout. 10. DNR and DNI DW and RN OK to DC Subjective Subjective More alert. RN and at bedside. DC planning today is pending Objective Last 24 Hour Vital Signs Date Time Temp Pulse Resp B/P (MAP) Pulse Ox O2 Delivery O2 Flow Rate FiO2 06/27/19 09:06 89 126/82 06/27/19 09:05 126/82 06/27/19 09:00 Nasal Cannula 2.0 06/27/19 08:00 97.0 89 21 126/82 (97) 97 06/27/19 06:52 79 22 98 Nasal Cannula 2.0 28 76 24 96 06/27/19 04:00 97.7 101 21 133/85 (101) 96 06/27/19 04:00 Nasal Cannula 2.0 06/27/19 03:33 106 06/27/19 00:00 97.7 82 21 100/66 (77) 98 06/27/19 00:00 Nasal Cannula 2.0 06/26/19 23:34 94 06/26/19 22:47 85 20 99 Nasal Cannula 2.0 28 81 20 96 06/26/19 20:00 Nasal Cannula 2.0 06/26/19 20:00 98.1 93 21 103/57 (72) 98 06/26/19 20:00 85 103/57 06/26/19 19:39 90 06/26/19 16:00 99.0 96 24 124/68 (86) 96 06/26/19 16:00 Nasal Cannula 2.0 06/26/19 15:29 87 06/26/19 14:48 82 20 100 Nasal Cannula 2.0 28 78 20 98 Intake and Output 06/26/19 06/27/19 18:59 06:59 Intake Total 1095.0 ml 820 ml Balance 1095.0 ml 820 ml Intake Oral 120 ml IV Total 975.0 ml 820 ml # Voids 2 2 Laboratory Tests Test 06/27/19 03:50 White Blood Count 6.7 K/UL (4.8-10.8) Red Blood Count 3.26 M/UL (4.70-6.10) L Hemoglobin 10.5 G/DL (14.2-18.0) L Hematocrit 31.5 % (42.0-52.0) L Mean Corpuscular Volume 97 FL (80-99) Mean Corpuscular Hemoglobin 32.2 PG (27.0-31.0) H Mean Corpuscular Hemoglobin Concent 33.3 G/DL (32.0-36.0) Red Cell Distribution Width 12.4 % (11.6-14.8) Platelet Count 145 K/UL (150-450) L Mean Platelet Volume 9.2 FL (6.5-10.1) Neutrophils (%) (Auto) 76.9 % (45.0-75.0) H Lymphocytes (%) (Auto) 9.5 % (20.0-45.0) L Monocytes (%) (Auto) 11.3 % (1.0-10.0) H Eosinophils (%) (Auto) 1.8 % (0.0-3.0) Basophils (%) (Auto) 0.6 % (0.0-2.0) Sodium Level 144 MMOL/L (136-145) Potassium Level 4.3 MMOL/L (3.5-5.1) Chloride Level 111 MMOL/L (98-107) H Carbon Dioxide Level 27 MMOL/L (21-32) Anion Gap 7 mmol/L (5-15) Blood Urea Nitrogen 21 mg/dL (7-18) H Creatinine 1.5 MG/DL (0.55-1.30) H Estimat Glomerular Filtration Rate mL/min (>60) Glucose Level 121 MG/DL (74-106) H Calcium Level 8.5 MG/DL (8.5-10.1) Microbiology Date/Time Source Procedure Growth Status 06/24/19 13:00 Indwelling Cath Urine Culture - Final NO GROWTH AFTER 48 HOURS Complete Objective HEAD AND NECK: No JVD. LUNGS: Coarse rhonchi . CARDIOVASCULAR: Regular S1 and S2 with no gallop. ABDOMEN: Soft. EXTREMITIES: No pitting edema. Joaquim Pérez MD Jun 27, 2019 12:54
--- NOTE | 2019-06-27 13:28 | Infectious Diseases Prog Note ---
Assessment/Plan Problems: (1) Leukocytosis Assessment & Plan: suspect reactive with no evidence of sepsis , monitor off antibiotics . repeated CXR ruled out aspiration pneumonia (2) Syncope Assessment & Plan: possible cardiac arrest , rule out cardiac source , cardiology is following , continue tele monitor (3) Hypotension Assessment & Plan: not due to sepsis , blood culture x2 is negative, off antibiotics (4) Altered mental status Assessment & Plan: suspect due to cardiac reason with hypotension , improved. Subjective Constitutional: Reports: no symptoms HEENT: Reports: no symptoms Respiratory: Reports: no symptoms Breasts: Reports: no symptoms Cardiovascular: Reports: no symptoms Gastrointestinal/Abdominal: Reports: no symptoms Genitourinary: Reports: no symptoms Neurologic: Reports: no symptoms Psychiatric: Reports: no symptoms Skin: Reports: no symptoms Endocrine: Reports: no symptoms Hematologic: Reports: no symptoms Musculoskeletal: Reports: no symptoms Allergies: Coded Allergies: No Known Allergies (Unverified , 05/02/19) Subjective He was resting in bed confused and combative , no response to verbal commands, demented, not in distress Objective Vital Signs Last 24 Hour Vital Signs Date Time Temp Pulse Resp B/P (MAP) Pulse Ox O2 Delivery O2 Flow Rate FiO2 06/27/19 09:06 89 126/82 06/27/19 09:05 126/82 06/27/19 09:00 Nasal Cannula 2.0 06/27/19 08:00 97.0 89 21 126/82 (97) 97 06/27/19 06:52 79 22 98 Nasal Cannula 2.0 28 76 24 96 06/27/19 04:00 97.7 101 21 133/85 (101) 96 06/27/19 04:00 Nasal Cannula 2.0 06/27/19 03:33 106 06/27/19 00:00 97.7 82 21 100/66 (77) 98 06/27/19 00:00 Nasal Cannula 2.0 06/26/19 23:34 94 06/26/19 22:47 85 20 99 Nasal Cannula 2.0 28 81 20 96 06/26/19 20:00 Nasal Cannula 2.0 06/26/19 20:00 98.1 93 21 103/57 (72) 98 06/26/19 20:00 85 103/57 06/26/19 19:39 90 06/26/19 16:00 99.0 96 24 124/68 (86) 96 9/5/19 16:00 Nasal Cannula 2.0 06/26/19 15:29 87 06/26/19 14:48 82 20 100 Nasal Cannula 2.0 28 78 20 98 Height (Feet): 5 Height (Inches): 11.00 Weight (Pounds): 143 General Appearance: WD/WN, no acute distress HEENT: normocephalic, atraumatic, anicteric, mucous membranes moist, PERRL Respiratory/Chest: chest wall non-tender, lungs clear, normal breath sounds, no respiratory distress, no accessory muscle use Cardiovascular: normal peripheral pulses, normal rate, regular rhythm, no gallop/murmur, no JVD Abdomen: normal bowel sounds, soft, non tender, no organomegaly, non distended , no mass, no scars Genitourinary: normal external genitalia Extremities: no cyanosis, no clubbing Skin: no rash, no lesions, no ulcers Neurologic/Psychiatric: alert, responsive Lymphatic: no neck adenopathy, no groin adenopathy Musculoskeletal: normal muscle bulk, no effusion Laboratory Tests Test 06/27/19 03:50 White Blood Count 6.7 K/UL (4.8-10.8) Red Blood Count 3.26 M/UL (4.70-6.10) L Hemoglobin 10.5 G/DL (14.2-18.0) L Hematocrit 31.5 % (42.0-52.0) L Mean Corpuscular Volume 97 FL (80-99) Mean Corpuscular Hemoglobin 32.2 PG (27.0-31.0) H Mean Corpuscular Hemoglobin Concent 33.3 G/DL (32.0-36.0) Red Cell Distribution Width 12.4 % (11.6-14.8) Platelet Count 145 K/UL (150-450) L Mean Platelet Volume 9.2 FL (6.5-10.1) Neutrophils (%) (Auto) 76.9 % (45.0-75.0) H Lymphocytes (%) (Auto) 9.5 % (20.0-45.0) L Monocytes (%) (Auto) 11.3 % (1.0-10.0) H Eosinophils (%) (Auto) 1.8 % (0.0-3.0) Basophils (%) (Auto) 0.6 % (0.0-2.0) Sodium Level 144 MMOL/L (136-145) Potassium Level 4.3 MMOL/L (3.5-5.1) Chloride Level 111 MMOL/L (98-107) H Carbon Dioxide Level 27 MMOL/L (21-32) Anion Gap 7 mmol/L (5-15) Blood Urea Nitrogen 21 mg/dL (7-18) H Creatinine 1.5 MG/DL (0.55-1.30) H Estimat Glomerular Filtration Rate mL/min (>60) Glucose Level 121 MG/DL (74-106) H Calcium Level 8.5 MG/DL (8.5-10.1) Current Medications Medications (Trade) Dose Ordered Sig/Candace Route PRN Reason Start Time Stop Time Status Last Admin Dose Admin Acetaminophen (Tylenol) 650 mg Q6H PRN ORAL Mild Pain/Temp > 100.5 06/24/19 01:00 07/24/19 00:59 Albuterol/ Ipratropium (Albuterol/ Ipratropium) 3 ml Q4H PRN HHN Shortness of Breath 06/26/19 09:45 07/01/19 09:44 06/26/19 10:10 Albuterol/ Ipratropium (Albuterol/ Ipratropium) 3 ml Q8HRT HHN 06/24/19 07:00 06/29/19 06:59 06/27/19 06:42 Allopurinol (Zyloprim) 100 mg DAILY ORAL 06/24/19 09:00 07/24/19 08:59 06/27/19 09:03 Aspirin (ASA) 81 mg DAILY ORAL 06/24/19 09:00 07/24/19 08:59 06/27/19 09:03 Ferrous Sulfate (Feosol) 325 mg DAILY ORAL 06/24/19 09:00 07/24/19 08:59 06/27/19 09:03 Heparin Sodium (Porcine) (Heparin 5000 units/ml) 5,000 units EVERY 12 HOURS SUBQ 06/24/19 09:00 07/24/19 08:59 06/27/19 09:10 Losartan Potassium (Cozaar) 50 mg DAILY ORAL 06/24/19 09:00 07/24/19 08:59 06/27/19 09:05 Megestrol Acetate (Megace) 400 mg TWICE A DAY ORAL 06/24/19 18:00 07/24/19 17:59 06/27/19 09:02 Memantine (Namenda) 10 mg TWICE A DAY ORAL 06/24/19 09:00 07/24/19 08:59 06/27/19 09:02 Metoprolol Tartrate (Lopressor) 25 mg Q12HR ORAL 06/24/19 21:00 07/24/19 20:59 06/27/19 09:06 Pantoprazole (Protonix) 40 mg EVERY 12 HOURS IVP 06/24/19 09:00 07/24/19 08:59 06/27/19 09:02 Sodium Chloride 1,000 ml @ 75 mls/hr [id number] IV 06/24/19 09:15 07/24/19 09:14 06/27/19 09:40 Earnest Gu M.D. Jun 27, 2019 13:28
--- NOTE | 2019-06-27 14:38 | NUR ---
NURSE NOTES: at bedside. On nasal cannula at 2LPM. Asleep, easy to arouse. Bed in lowest position Will continue plan of care. informed that ambulance late will arrive around 1500. call to check has been placed.
[2019-06-27] MEDS ORDERED: Tubing IV Secondary IV ONE (14:54)
[2019-06-27] MEDS ORDERED: NS 275ml ONE ×2 (14:54)
--- NOTE | 2019-06-27 15:03 | NUR ---
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 report given. all questions answered. IV and ID band removed. pt in no distress. going in transport.
--- NOTE | 2019-06-29 16:42 | Discharge Summary ---
Discharge Summary Discharge Summary _ DATE OF ADMISSION: 06/23/2019 DATE OF DISCHARGE: 06/27/2029 DISCHARGED BY: Dr. Joellen Lara CONSULTANTS: Dr. Earnest Pérez BRIEF HOSPITAL COURSE: Patient is an 84-year-old male with history of severe dementia, hypertension, syncope, non-ST elevated GA, COPD, CVA with hemiplegia, hyperlipidemia and gout , who was brought in from [facility] for complaints of possible syncope versus cardiac arrest. Patient was on a wheelchair, was trying to put back on the bed, and found the patient did not have a pulse and was nonresponsive. CPR was started at rehab and patient's vitals came back. Paramedics were called and patient was brought in for evaluation. Patient had a previous history of syncope and non-ST elevated GA last admission. On evaluation at the ED, blood pressure was 68/40, pulse rate 90, 97% saturation on nonrebreather mask. He was given IV bolus. Blood work showed WBC 14.6. Hemoglobin and hematocrit were stable. Potassium 5.2. BUN 65, creatinine 2.6. Glucose 163. Troponin 0 0.264. proBNP 2161. Lactic acid 1.10. EKG was in normal sinus rhythm with no acute ST elevation. Chest x-ray did not show any acute disease. CT of the head without contrast did not show any acute hemorrhage or mass-effect. Unchanged left-sided encephalomalacia. Unchanged bifrontal encephalomalacia and chronic microvascular ischemic changes. He was given aspirin. He was started on IV antibiotics. CODE STATUS was confirmed with family. Patient is DNR. He was admitted for evaluation of syncope, possible cardiac arrest, non-ST elevated GA, possible UTI. He was admitted to [facility]. He was given IV hydration. She had had leukocytosis, cultures were ordered. Patient had elevated potassium level and was given Kayexalate. Home medications were continued. Soils Engineer consulted. Cardiac enzymes were monitored. Troponin levels were elevated from previous admission. Elevation could be due to renal failure as creatinine was elevated. Also could be secondary to CPR. EKG did not show any acute changes and no significant change compared to previous EKG. He was given metoprolol and losartan for high blood pressure. Clonidine as needed. Hypotension resolved. Echocardiogram done showed ejection fraction of 60%. Patient does not have any chest pain. Venous duplex was negative for acute DVT. IV was. Patient was continued on vancomycin. Cefepime was switched to Zosyn as empiric coverage cover for possible aspiration pneumonia due altered mental status. Blood culture did not isolate any growth. Urine culture was negative but was collected after patient was started on IV antibiotics. Chest x-ray was unchanged. Kidney function improved with hydration. All cultures were negative. Patient was taken off antibiotics. He was discharged back to rehab center. 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 DISCHARGE MEDICATIONS: Refer to Discharge Medication List. I have been assigned to complete a discharge summary on this account, I was not involved with the patient's management.--SANFORD Archer Jacqueline Robles NP Jun 29, 2019 16:42
== END 2019-06-27 14:55 | DRG 871 ==
LOC: EDBD 19:53 → EMR 20:23 → ICU 21:00 → EDBEDREQ 21:04 → 2W 06-25 07:13
DX: A41.9 Sepsis, unspecified organism (principal); I21.4 Non-ST elevation (NSTEMI) myocardial infarction; N17.9 Acute kidney failure, unspecified; N39.0 Urinary tract infection, site not specified; I69.359 Hemiplegia and hemiparesis following cerebral infarction affecting unspecified side; E87.5 Hyperkalemia; R13.10 Dysphagia, unspecified; I10 Essential (primary) hypertension; F03.90 Unspecified dementia, unspecified severity, without behavioral disturbance, psychotic disturbance, mood disturbance, and anxiety; E78.5 Hyperlipidemia, unspecified; M10.9 Gout, unspecified; Z86.74 Personal history of sudden cardiac arrest; J44.9 Chronic obstructive pulmonary disease, unspecified; Z66 Do not resuscitate; I25.2 Old myocardial infarction
CPT/HCPCS: 36415; 70450; 71045; 80048; 80053; 80202; 81001; 82550; 82553; 83605; 83690; 83735; 83880; 84100; 84484; 85007; 85025; 85610; 85730; 87040; 87081; 87086; 93005; 93306; 93970; 94640; 94664; 96361; 96365; 96368; 99291; J7620

== ENCOUNTER 2019-07-24 21:39 | Inpatient (IN) | payer MEDICARE, OTHER ==
[~2019-07-24] VITALS: Ht 167.6 cm; Wt 59.0 kg
[~2019-07-24 21:39] MED LIST changes: +ACETAMINOPHEN325 M1 ORAL; +ACETAMINOPHEN500 M3 ORAL; +ACETAMINOPHEN500 M5 ORAL; +MEGACE ORA400 MG/10 ORAL; +Pantoprazole PO; +VENTOLIN HFA18 GM INH; +ZENPEP DR 25,01 EAC1 PO
--- NOTE | 2019-07-24 21:47 | Emergency Room Report ---
History of Present Illness General Chief Complaint: Syncope Source: Medical Record, EMS Present Illness HPI An 84-year-old Farsi speaking male with a history of advanced dementia. He is coming from [facility] with chief complaint of syncope. He was in his wheelchair and was transfer to the bed. He had a 3 to 4-second syncopal episode. Was unresponsive for the amount of time. Letter when he got to the bed. No trauma. Unable to get any other history for this patient. Initial blood pressure was slightly low. No history of trauma, fever, cough or chest pain. Allergies: Coded Allergies: No Known Allergies (Unverified , 05/02/19) Patient History Past Medical History: see triage record, old chart reviewed, HTN, COPD, CVA/TIA Past Surgical History: other Pertinent Family History: none Social History: Denies: smoking Immunizations: UTD, other Reviewed Nursing Documentation: PMH: Agreed; PSxH: Agreed Nursing Documentation-PMH Hx Hypertension: Yes Hx Asthma: Yes Hx COPD: Yes Hx Cancer: No Hx Gastrointestinal Problems: No Hx Cerebrovascular Accident: Yes Hx Dementia: Yes Hx Syncope: Yes Hx Aphasia: Yes Hx Weakness: Yes Review of Systems All Other Systems: limited - Secondary to condition Physical Exam Vital Signs Date Time Temp Pulse Resp B/P (MAP) Pulse Ox O2 Delivery O2 Flow Rate FiO2 07/24/19 21:40 98.2 102 18 88/59 (69) 98 Room Air Vitals with hypotension Sp02 EP Interpretation: reviewed, normal General Appearance: no apparent distress, thin, Chronically Ill Head: normocephalic, atraumatic Eyes: bilateral eye PERRL, bilateral eye EOMI ENT: hearing grossly normal, normal pharynx Neck: full range of motion, supple, no meningismus Respiratory: chest non-tender, lungs clear, normal breath sounds Cardiovascular #1: regular rate, rhythm, no murmur Gastrointestinal: normal bowel sounds, non tender, no mass, no organomegaly, no bruit, non-distended Musculoskeletal: back normal, gait/station normal, normal range of motion Neurologic: grossly normal Medical Decision Making Diagnostic Impression: Primary Impression: Syncope Qualified Codes: R55 - Syncope and collapse Additional Impression: ACS (acute coronary syndrome) ER Course Patient presents with syncope. Most likely orthostatic in nature since they got him from sitting position up to go into the bed. According to family this happened 3 times already. Initial blood pressure was slightly hypotensive. Responded to IV fluid. Still systolic in the low 100. EKG showed no evidence of ST elevation. Troponin is intermittent. Gave him aspirin and Lovenox here. Will admit for further work-up. I contacted Dr. Zuniga for admission. Patient has not given a urine sample. Family refused catheterization. Lab Results Impression Labs with elevated troponin EKG Diagnostic Results Rate: tachycardiac Rhythm: NSR ST Segments: no acute changes Rhythm Strip Diag. Results EP Interpretation: yes Rate: 100 Rhythm: NSR, no PVC's, no ectopy Chest X-Ray Diagnostic Results Chest X-Ray Diagnostic Results : Chest X-Ray Ordered: Yes # of Views/Limited/Complete: 1 View Indication: Other - syncope EP Interpretation: Yes Interpretation: no consolidation, no effusion, no pneumothorax, no acute cardiopulmonary disease Impression: No acute disease Electronically Signed by: Nicolas Murillo MD Last Vital Signs Date Time Temp Pulse Resp B/P (MAP) Pulse Ox O2 Delivery O2 Flow Rate FiO2 07/24/19 21:40 98.2 102 18 88/59 (69) 98 Room Air Status: improved Disposition: ADMITTED INPATIENT Condition: Serious Nicolas Murillo MD Jul 24, 2019 21:47
--- NOTE | 2019-07-24 22:00 | NUR ---
ED Nurse Note: Recieved pt BIBA from SNF with c/o s/p fall from wheelchair with possible syncopal episode, pt is on gurney awake and alert, pt is confused and disoriented, slightly agitatted and hits at staff when touched, pt is gowned and placed on cardiac monitoring, will resume care as ordered and continue to closely monitor.
[2019-07-24 22:22] LABS: BASOPHILS % (AUTO) 2.2 % (0.0-2.0); EOSINOPHILS % (AUTO) 2.5 % (0.0-3.0); HEMATOCRIT 41.6 % (42.0-52.0); HEMOGLOBIN 13.9 G/DL (14.2-18.0); LYMPHOCYTES % (AUTO) 8.2 % (20.0-45.0); MEAN CORPUSCULAR VOLUME 95 FL (80-99); NEUTROPHILS % (AUTO) 80.1 % (45.0-75.0); PLATELET COUNT 332 K/UL (150-450); RED CELL DISTRIBUTION WIDTH 11.3 % (11.6-14.8); WHITE BLOOD COUNT 12.4 K/UL (4.8-10.8)
[2019-07-24 22:26] LABS: ANION GAP 10 mmol/L (5-15); BLOOD UREA NITROGEN 33 mg/dL (7-18); CALCIUM 9.2 MG/DL (8.5-10.1); CARBON DIOXIDE 28 MMOL/L (21-32); CHLORIDE 103 MMOL/L (98-107); CREATININE 1.6 MG/DL (0.55-1.30); POTASSIUM 4.4 MMOL/L (3.5-5.1); SODIUM 141 MMOL/L (136-145)
[2019-07-24] MEDS ORDERED: Aspirin Baby 81mg ORAL ONE (22:45)
[2019-07-24] MEDS ORDERED: Enoxaparin 60mg Inj SUBQ ONE (22:45)
--- NOTE | 2019-07-24 22:48 | Diagnostic Imaging Report ---
Indication: Altered mental status Technique: Contiguous 5 mm thick transaxial imaging of the head obtained in a Siemens Sensation [address] scanner. Soft tissue and bone windows generated. Automatic Exposure Control was utilized. Total Dose length Product (DLP): [address] Dose Index Volume (CTDIvol): The mGy Comparison: 06/23/2019 Findings: There is a area of encephalomalacia involving the right left frontal temporal lobe. There is also right frontal encephalomalacia. Findings are unchanged from the last examination. There is no change. There is moderate prominence of the ventricles, basal cisterns, and cerebral sulci consistent with atrophy. Moderate, nonspecific, white matter hypoattenuation is noted throughout the brain consistent with chronic small vessel disease. There is no midline shift, edema, acute hemorrhage, mass effect, or abnormal extra-axial fluid collections. Bones are unremarkable. Impression: Left temporal and bifrontal encephalomalacia. No acute intracranial bleed, mass effect or edema. Moderate atrophy of the brain. Evidence of chronic small vessel disease involving white matter tracts. [facility] has communicated the preliminary results to the Emergency Department. Their findings are largely concordant with this report. The CT scanner at [facility] is accredited by the [employer] and the scans are performed using dose optimization techniques as appropriate to a performed exam including Automatic Exposure control.
[2019-07-24 23:00] VITALS: BP 102/66
--- NOTE | 2019-07-24 23:30 | NUR ---
ED Nurse Note: Pt continues to rest in bed, IV site patent, fluids infusing as ordered, pt family at bedside, pt being preapred for admission, no changes or increased distress, v/s stable, will continue to monitor.
[2019-07-25] VITALS (7 sets, daily range): BP systolic 99–157; BP diastolic 57–92
--- NOTE | 2019-07-25 00:10 | NUR ---
ED Nurse Note:Pt has room for admisison, report called to floor nurse, pt family at bedside and aware, pt continues to rest quietly, calm and cooperative, iv site patent, pt being taken to unit via gurney and acls protocols with RN and DICK-jose jackson during pt transfer to floor bed.
[2019-07-25] MEDS ORDERED: METOPROLOL TART25 MG ORAL (01:19)
[2019-07-25] MEDS ORDERED: MILK OF MA400 MG/51 ORAL (01:19)
[2019-07-25] MEDS ORDERED: DOCUSATE SODIU100 MG ORAL (01:19)
--- NOTE | 2019-07-25 01:20 | NUR ---
NURSE NOTES: Received report from Marylu REAL ESTATE REPRESENTATIVE. Patient transferred to tele unit from ER via gurney, transferred to bed with 2 ER staff member assist without incident. No signs of distress or pain noted. Belongings list checked with REAL ESTATE REPRESENTATIVE and family, daughter (Nanda) and present at bedside, no belongings. AOx1, Farsi speaking, unable to make needs known. IV site checked, patent and flushed, no erythema, bleeding, or infiltration noted. Skin assessment performed, wound photo taken. Patient placed on Tele box, sinus rhythm on monitor. Bed at lowest position, brakes on, siderails up x3, call light within reach. Will continue to monitor.
--- NOTE | 2019-07-25 01:29 | NUR ---
NURSE NOTES: Called Dr. Lara regarding admission orders. Awaiting callback.
--- NOTE | 2019-07-25 01:59 | NUR ---
NURSE NOTES: Received admission orders from Dr. Lara. Noted and carried out.
[2019-07-25] MEDS ORDERED: Acetaminophen 500mg (ES) tab ORAL PRN ×2 (02:00)
[2019-07-25] MEDS ORDERED: Milk of Magnesia 30ml Ud ORAL PRN (02:00)
[2019-07-25] MEDS ORDERED: Albuterol/Ipratropium 3ml neb HHN PRN (02:00)
[2019-07-25] MEDS ORDERED: Metoprolol 25mg tab ORAL PRN (02:00)
[2019-07-25 06:59] LABS: APPEARANCE,URINE CLEAR; BILIRUBIN, URINE NEGATIVE (NEGATIVE); GLUCOSE, URINE (UA) NEGATIVE (NEGATIVE); KETONES,URINE NEGATIVE (NEGATIVE); LEUKOCYTE ESTERASE ,URINE 1+ (NEGATIVE); NITRITE,URINE NEGATIVE (NEGATIVE); PH,URINE 6.5 (4.5-8.0); PROTEIN,URINE 1+ (NEGATIVE); UROBILINOGEN,URINE 1 MG/DL (0.0-1.0)
[2019-07-25 07:04] LABS: COLOR,URINE YELLOW
--- NOTE | 2019-07-25 07:10 | NUR ---
NURSE NOTES: Nurse report given by Mello SHER. Patient's sleeping in bed, family member is at bedside. Bed low and locked, call light within reach. No s/s of distress or SOB. IV is running fluid, no s/s of redness or tenderness. Patient's on external catheter. Will continue to monitor.
[2019-07-25 07:11] LABS: BASOPHILS % (AUTO) 0.6 % (0.0-2.0); EOSINOPHILS % (AUTO) 3.5 % (0.0-3.0); HEMATOCRIT 33.5 % (42.0-52.0); HEMOGLOBIN 11.3 G/DL (14.2-18.0); LYMPHOCYTES % (AUTO) 10.7 % (20.0-45.0); MEAN CORPUSCULAR VOLUME 95 FL (80-99); MONOCYTES % (AUTO) 12.9 % (1.0-10.0); NEUTROPHILS % (AUTO) 72.3 % (45.0-75.0); PLATELET COUNT 227 K/UL (150-450); RED BLOOD COUNT 3.51 M/UL (4.70-6.10); RED CELL DISTRIBUTION WIDTH 11.7 % (11.6-14.8)
[2019-07-25 07:29] LABS: ANION GAP 5 mmol/L (5-15); BLOOD UREA NITROGEN 29 mg/dL (7-18); CALCIUM 8.5 MG/DL (8.5-10.1); CARBON DIOXIDE 29 MMOL/L (21-32); CHLORIDE 106 MMOL/L (98-107); CREATININE 1.4 MG/DL (0.55-1.30); POTASSIUM 4.2 MMOL/L (3.5-5.1); SODIUM 140 MMOL/L (136-145)
--- NOTE | 2019-07-25 07:29 | NUR ---
HAND-OFF: Report given to NIKKY Pruitt. Patient resting comfortably in bed. Oral care provided before hand-off. No signs of distress or pain noted. Family, , at bedside. Plan of care endorsed.
[2019-07-25] MEDS: Metoprolol 25mg tab ORAL SCH ×2 (08:30→17:45)
[2019-07-25] MEDS: Docusate 100mg cap ORAL SCH ×2 (08:30→18:08)
[2019-07-25] MEDS: Aspirin Baby 81mg ORAL SCH (08:30)
[2019-07-25] MEDS: Memantine 10mg tab ORAL SCH ×2 (08:30→18:08)
[2019-07-25] MEDS: Allopurinol 100mg Tab ORAL SCH (08:30)
[2019-07-25] MEDS: Heparin 5000 units/ml inj SUBQ SCH ×2 (08:31→20:02)
--- NOTE | 2019-07-25 08:54 | General Progress Note ---
Assessment/Plan Status: stable Assessment/Plan: 1. Syncope - cont IVF. his bp has improved. r/o sepsis. 2. Elevated Troponin - probably 2nd to CKD 3. Dementia - 4. Dysphagia and hx of asp pneumonia - DNR and family refused Peg tube placement. on Puree diet. 5. Gout - stable. 6. Eleveted WBC, questionable sepsis - will follow blood and urine cultures. consider starting broad spectrum IV abx until cxs are back 7. CVA with hemiplegia 8. COPD - cont Duoneb nab. Subjective Date patient seen: Jul 25, 2019 Time patient seen: 08:30 Constitutional: Reports: weakness HEENT: Reports: no symptoms Cardiovascular: Reports: no symptoms Respiratory: Reports: wheezing Gastrointestinal/Abdominal: Reports: no symptoms Genitourinary: Reports: no symptoms Neurologic/Psychiatric: Reports: no symptoms Endocrine: Reports: no symptoms Hematologic/Lymphatic: Reports: no symptoms Allergies: Coded Allergies: No Known Allergies (Unverified , 05/02/19) Subjective Patient is resting in bed with his at bedside. He had low grade fever over night. His WBC improved with hydration. No SOB or chest pain. Objective Last 24 Hour Vital Signs Date Time Temp Pulse Resp B/P (MAP) Pulse Ox O2 Delivery O2 Flow Rate FiO2 07/25/19 08:30 83 133/86 07/25/19 06:59 96.8 07/25/19 04:00 100.0 89 20 107/57 (74) 98 07/25/19 04:00 82 07/25/19 01:31 Nasal Cannula 2.0 07/25/19 01:20 99.7 100 20 157/92 (113) 95 07/25/19 01:20 117 07/25/19 00:25 98.2 105 18 130/80 98 Room Air 07/25/19 00:00 98.2 105 18 130/80 98 Room Air 07/24/19 23:00 98.2 105 18 102/66 98 Room Air 07/24/19 21:40 98.2 102 18 88/59 (69) 98 Room Air Intake and Output 07/24/19 07/25/19 19:00 07:00 Intake Total 183 ml Output Total 300 ml Balance -117 ml Intake IV Total 183 ml Output Urine Total 300 ml Laboratory Tests 07/24/19 22:10: White Blood Count 12.4H, Red Blood Count 4.40L, Hemoglobin 13.9L, Hematocrit 41.6L, Mean Corpuscular Volume 95, Mean Corpuscular Hemoglobin 31.5H, Mean Corpuscular Hemoglobin Concent 33.3, Red Cell Distribution Width 11.3L, Platelet Count 332, Mean Platelet Volume 8.7, Neutrophils (%) (Auto) 80.1H, Lymphocytes (%) (Auto) 8.2L, Monocytes (%) (Auto) 7.0, Eosinophils (%) (Auto) 2.5, Basophils (%) (Auto) 2.2H, Sodium Level 141, Potassium Level 4.4, Chloride Level 103, Carbon Dioxide Level 28, Anion Gap 10, Blood Urea Nitrogen 33H, Creatinine 1.6H, Estimat Glomerular Filtration Rate , Glucose Level 141H, Calcium Level 9.2, Troponin I 0.451H 07/25/19 05:28: White Blood Count 9.0, Red Blood Count 3.51L, Hemoglobin 11.3L, Hematocrit 33.5L , Mean Corpuscular Volume 95, Mean Corpuscular Hemoglobin 32.3H, Mean Corpuscular Hemoglobin Concent 33.8, Red Cell Distribution Width 11.7, Platelet Count 227, Mean Platelet Volume 7.3, Neutrophils (%) (Auto) 72.3, Lymphocytes (% ) (Auto) 10.7L, Monocytes (%) (Auto) 12.9H, Eosinophils (%) (Auto) 3.5H, Basophils (%) (Auto) 0.6, Sodium Level 140, Potassium Level 4.2, Chloride Level 106, Carbon Dioxide Level 29, Anion Gap 5, Blood Urea Nitrogen 29H, Creatinine 1.4H, Estimat Glomerular Filtration Rate , Glucose Level 100, Calcium Level 8.5 , Troponin I 0.492H 07/25/19 05:54: Urine Color Yellow, Urine Appearance Clear, Urine pH 6.5, Urine Specific [place] 1.010, Urine Protein 1+H, Urine Glucose (UA) Negative, Urine Ketones Negative, Urine Blood Negative, Urine Nitrite Negative, Urine Bilirubin Negative , Urine Urobilinogen 1H, Urine Leukocyte Esterase 1+H, Urine RBC 0-2H, Urine WBC 0-2, Urine Squamous Epithelial Cells Occasional, Urine Bacteria Few Height (Feet): 5 Height (Inches): 6.00 Weight (Pounds): 130 General Appearance: no apparent distress, alert EENT: normal ENT inspection Neck: non-tender, supple Cardiovascular: normal peripheral pulses, normal rate, regular rhythm Respiratory/Chest: chest wall non-tender, lungs clear Abdomen: non tender, soft Extremities: non-tender Edema: no edema noted Arm (L), no edema noted Arm (R), no edema noted Leg (L), no edema noted Leg (R), no edema noted Pedal (L), no edema noted Pedal (R), no edema noted Generalized Neurologic: alert, responsive Skin: warm/dry Lymphatic: normal submandibular (L), normal submandibular (R), normal axillary (L), normal axillary (R), normal inguinal (L) Joellen Lara MD Jul 25, 2019 08:54
--- NOTE | 2019-07-25 09:00 | NUR ---
NURSE NOTES: laboratory notified troponin [address] Hoover awared and consulted with Dr. Pérez. Dr Pérez order another 2D echo and troponin draw. Orders acknowledged and carried out.
--- NOTE | 2019-07-25 09:40 | Cardiac Electrophysiology PN ---
Subjective Subjective [id number] Objective Last 24 Hour Vital Signs Date Time Temp Pulse Resp B/P (MAP) Pulse Ox O2 Delivery O2 Flow Rate FiO2 07/25/19 08:30 83 133/86 07/25/19 08:00 97.6 86 18 133/86 (102) 97 07/25/19 06:59 96.8 07/25/19 04:00 100.0 89 20 107/57 (74) 98 07/25/19 04:00 82 07/25/19 01:31 Nasal Cannula 2.0 07/25/19 01:20 99.7 100 20 157/92 (113) 95 07/25/19 01:20 117 07/25/19 00:25 98.2 105 18 130/80 98 Room Air 07/25/19 00:00 98.2 105 18 130/80 98 Room Air 07/24/19 23:00 98.2 105 18 102/66 98 Room Air 07/24/19 21:40 98.2 102 18 88/59 (69) 98 Room Air Intake and Output 07/24/19 07/25/19 19:00 07:00 Intake Total 183 ml Output Total 300 ml Balance -117 ml Intake IV Total 183 ml Output Urine Total 300 ml Laboratory Tests Test 07/24/19 22:10 07/25/19 05:28 07/25/19 05:54 White Blood Count 12.4 K/UL (4.8-10.8) H 9.0 K/UL (4.8-10.8) Red Blood Count 4.40 M/UL (4.70-6.10) L 3.51 M/UL (4.70-6.10) L Hemoglobin 13.9 G/DL (14.2-18.0) L 11.3 G/DL (14.2-18.0) L Hematocrit 41.6 % (42.0-52.0) L 33.5 % (42.0-52.0) L Mean Corpuscular Volume 95 FL (80-99) 95 FL (80-99) Mean Corpuscular Hemoglobin 31.5 PG (27.0-31.0) H 32.3 PG (27.0-31.0) H Mean Corpuscular Hemoglobin Concent 33.3 G/DL (32.0-36.0) 33.8 G/DL (32.0-36.0) Red Cell Distribution Width 11.3 % (11.6-14.8) L 11.7 % (11.6-14.8) Platelet Count 332 K/UL (150-450) 227 K/UL (150-450) Mean Platelet Volume 8.7 FL (6.5-10.1) 7.3 FL (6.5-10.1) Neutrophils (%) (Auto) 80.1 % (45.0-75.0) H 72.3 % (45.0-75.0) Lymphocytes (%) (Auto) 8.2 % (20.0-45.0) L 10.7 % (20.0-45.0) L Monocytes (%) (Auto) 7.0 % (1.0-10.0) 12.9 % (1.0-10.0) H Eosinophils (%) (Auto) 2.5 % (0.0-3.0) 3.5 % (0.0-3.0) H Basophils (%) (Auto) 2.2 % (0.0-2.0) H 0.6 % (0.0-2.0) Sodium Level 141 MMOL/L (136-145) 140 MMOL/L (136-145) Potassium Level 4.4 MMOL/L (3.5-5.1) 4.2 MMOL/L (3.5-5.1) Chloride Level 103 MMOL/L (98-107) 106 MMOL/L (98-107) Carbon Dioxide Level 28 MMOL/L (21-32) 29 MMOL/L (21-32) Anion Gap 10 mmol/L (5-15) 5 mmol/L (5-15) Blood Urea Nitrogen 33 mg/dL (7-18) H 29 mg/dL (7-18) H Creatinine 1.6 MG/DL (0.55-1.30) H 1.4 MG/DL (0.55-1.30) H Estimat Glomerular Filtration Rate mL/min (>60) mL/min (>60) Glucose Level 141 MG/DL (74-106) H 100 MG/DL (74-106) Calcium Level 9.2 MG/DL (8.5-10.1) 8.5 MG/DL (8.5-10.1) Troponin I 0.451 ng/mL (0.000-0.056) 0.492 ng/mL (0.000-0.056) Urine Color Yellow Urine Appearance Clear Urine pH 6.5 (4.5-8.0) Urine Specific [place] 1.010 (1.005-1.035) Urine Protein 1+ (NEGATIVE) H Urine Glucose (UA) Negative (NEGATIVE) Urine Ketones Negative (NEGATIVE) Urine Blood Negative (NEGATIVE) Urine Nitrite Negative (NEGATIVE) Urine Bilirubin Negative (NEGATIVE) Urine Urobilinogen 1 MG/DL (0.0-1.0) H Urine Leukocyte Esterase 1+ (NEGATIVE) H Urine RBC 0-2 /HPF (0 - 0) H Urine WBC 0-2 /HPF (0 - 0) Urine Squamous Epithelial Cells Occasional /LPF Urine Bacteria Few /HPF (NONE) Microbiology Date/Time Source Procedure Growth Status 07/25/19 00:05 Rectum Received Joaquim Pérez MD Jul 25, 2019 09:40
--- NOTE | 2019-07-25 10:39 | NUR ---
RD ASSESSMENT & RECOMMENDATIONS SEE CARE ACTIVITY FOR COMPLETE ASSESSMENT DAILY ESTIMATED NEEDS: Needs based on cardiac 65kg 25-30 kcals/kg 7843-8597 total kcals 1-1.5 g protein/kg 65-98 g total protein 25-30 mL/kg 3342-6580 total fluid mLs NUTRITION DIAGNOSIS: * Swallowing difficulty r/t dysphagia as evidenced by pt on puree texture w/ NTL. * Increased kcal/ prot intake needs R/T wound healing as evidenced by pt admitted w/ wound @ R ischial tuberosity, pending eval. 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 Resume? 4) Wound healing: Add MVI x 1, Vit C 250mg QD : Mainor 1pkt BID 5) Monitor lytes
--- NOTE | 2019-07-25 11:45 | Consultation ---
DATE OF CONSULTATION: 07/25/2019 CARDIOLOGY CONSULTATION CONSULTING PHYSICIAN: Joaquim Pérez M.D. REFERRING PHYSICIAN: Joellen Lara M.D. REASON FOR CONSULTATION: Elevated troponin and shortness of breath. HISTORY OF PRESENT ILLNESS: The patient is an 84-year-old [place]ese gentleman that I am quite familiar from previous hospitalization earlier this month. The patient has history of hypertension and chronic troponin elevation as well as history of renal failure and CVA with left hemiplegia and dysphagia. He is on pureed diet. He also has history of gout. The patient was brought to the emergency room as he had episode of shortness of breath and altered mental status at the alf. The patient was admitted and a Cardiology consultation was obtained for further evaluation. The patient reportedly had a 3 to 4-second syncopal episode and was unresponsive for out of the bed. The patient also noted to have elevated troponin. At the time of my evaluation, the patient denies any chest pain or palpitation or shortness of breath. His is at the bedside. The patient was brought in from [facility]. REVIEW OF SYSTEMS: Negative other than what is mentioned in the history of present illness. PAST MEDICAL HISTORY: As mentioned above. FAMILY HISTORY: Noncontributory. SOCIAL HISTORY: He lives at alf. Does not smoke or drink alcohol. PHYSICAL EXAMINATION: VITAL SIGNS: Show blood pressure of 132/86, pulse 83, respirations 18, temperature 97.6. HEAD AND NECK: Showed no JVD. LUNGS: Clear. CARDIOVASCULAR: Shows regular S1 and S2 with no gallop or murmur. ABDOMEN: Soft. EXTREMITIES: No pitting edema. LABORATORY AND DIAGNOSTIC DATA: His labs show white count of 9, hemoglobin 11.2, hematocrit 33.5, and platelet count of 227,000. Sodium 140, potassium 4.2, BUN of 29, creatinine 1.4, and glucose of 100. Troponin 0.45 and 0.492. ASSESSMENT AND PLAN: 1. Elevated troponin. The patient has chronic troponin leak. His previous troponin on 06/24/2019 about a month ago was also 0.41. His previous admission in April 2019 also had elevated troponin. the patient has not had any normal troponin during his multiple hospitalizations. The patient also denies any chest pain and is quite comfortable at this time. His EKG also showed sinus rhythm with no acute ST-T wave abnormalities. At the meantime, keep the patient on aspirin 81 mg daily, metoprolol 25 mg b.i.d. 2. Hypertension, on metoprolol 25 mg b.i.d. 3. Status post syncopal episode, usually not clear at this time. His last echocardiogram a month ago showed EF of 70 to 75%, no aortic stenosis. It is of note that the patient also had a head CT on 07/24/2019 that showed no mass effect or edema. 4. Azotemia and renal failure. BUN/creatinine is mildly elevated BUN of 20, creatinine of 1.4. 5. History of stroke. 6. Large diaphragmatic hernia. 7. DNR. 8. Dysphagia, on pureed diet. Family is refusing PEG placement. Thank you very much for allowing me to participate in the care of this patient. Please do not hesitate to contact me for any questions regarding my evaluation. The case was discussed with the patient's at the bedside. Joaquim Pérez M.D. DR: EDE JOB#: [id number] CC:
--- NOTE | 2019-07-25 11:49 | Diagnostic Imaging Report ---
Indication: Dyspnea Comparison: 06/25/2019 A single view chest radiograph was obtained. Findings: Evaluation limited by rotation. There is a large density projected over the lower midline and right lower chest suspicious for large diaphragmatic hernia. Similar findings noted previously. No obvious infiltrate identified. Bones are osteopenic. IMPRESSION: Large diaphragmatic hernia suspected. No obvious change compared to the previous study.
--- NOTE | 2019-07-25 12:40 | NUR ---
NURSE NOTES: Critical lab value of troponin 0.510 at 12:35pm. Dr. Knight was made aware at 12:40pm- No new orders at this time.
--- NOTE | 2019-07-25 13:13 | Consultation ---
History of Present Illness General Date patient seen: Jul 25, 2019 Chief Complaint: Syncope Present Illness HPI This is a very pleasant 84-year-old male with advanced dementia who is a residential resident that presented with a syncopal episode. Patient was in wheelchair and had syncopal episode and required to be brought up again. Episode lasting a few seconds. No nausea vomiting fever chills. Noted to have leukocytosis and low-grade fevers on admission. Furthermore on admission identified to have multiple decubitus ulcers requiring care and management. Surgery called to evaluate. Patient seen, patient evaluated, chart reviewed Allergies: Coded Allergies: No Known Allergies (Unverified , 05/02/19) Medication History Scheduled Albuterol Sulfate (Ventolin Hfa), 1 PUFF INH DAILY, (Reported) Allopurinol* (Allopurinol*), 100 MG ORAL DAILY, (Reported) Aspirin* (Aspirin*), 81 MG ORAL DAILY Calcium Carb & Cit/Vitamin D3 (Citracal + D Er Tablet), 1 EACH PO BID, (Reported ) Cefepime Hcl/Dextrose, Iso-Osm (Cefepime 2 Gm Injection), 2 GM IV DAILY Docusate Sodium* (Docusate Sodium*), 100 MG ORAL TWICE A DAY, (Reported) Ipratropium/Albuterol Sulfate (DuoNeb 0.5-3(2.5)mg/3ml), 3 ML HHN TID, (Reported ) Memantine Hcl* (Namenda*), 10 MG ORAL TWICE A DAY, (Reported) Mirtazapine* (Remeron*), 7.5 MG ORAL BEDTIME, (Reported) Multivitamins* (Multivitamins*), 1 TAB ORAL DAILY Vancomycin In Dextrose,Iso-Osm (Vancomycin 750 Mg/150 Ml Bag), 750 MG IV DAILY Scheduled PRN Acetaminophen (Acetaminophen), 500 MG ORAL Q6HR PRN for Mild Pain (Pain Scale 1- 3), (Reported) Acetaminophen* (Acetaminophen 325MG Tablet*), 650 MG ORAL Q6H PRN for Moderate Breakthru Pain (5-7), (Reported) Acetaminophen* (Acetaminophen Extra Strength*), 1,000 MG ORAL Q6H PRN for Severe Pain (Pain Scale 7-10), (Reported) Magnesium Hydroxide* (Milk Of Magnesia*), 30 ML ORAL DAILY PRN for Constipation, (Reported) Metoprolol Tartrate* (Metoprolol Tartrate*), 25 MG ORAL EVERY 12 HOURS PRN for For High Blood Pressure, (Reported) Discontinued Medications Ferrous Sulfate* (Ferrous Sulfate*), 325 MG ORAL DAILY, (Reported) Discontinued Reason: Pt stopped taking med Lipase/Protease/Amylase (Zenpep Dr 25,000 Unit Capsule), 1 EACH PO TID, ( Reported) Discontinued Reason: Pt stopped taking med Losartan Potassium* (Losartan Potassium*), 50 MG ORAL DAILY, (Reported) Discontinued Reason: Pt stopped taking med Megestrol Acetate (Megestrol Acetate), 400 MG ORAL TWICE A DAY Discontinued Reason: Pt stopped taking med Patient History Limited by: medical condition History Provided By: Medical Record, PMD Healthcare decision maker Resuscitation status Do Not Resuscitate Advanced Directive on File Past Medical/Surgical History Past Medical/Surgical History: (1) Decubitus skin ulcer (2) Leukocytosis (3) Syncope (4) ACS (acute coronary syndrome) Review of Systems ROS Narrative Unable to obtain given patient's mental status and current medical condition Physical Exam General Appearance: no apparent distress Lines, tubes and drains: peripheral HEENT: mucous membranes moist Neck: supple, normal inspection Respiratory/Chest: lungs clear, no respiratory distress, no accessory muscle use Cardiovascular/Chest: regular rhythm Abdomen: soft, no organomegaly, no mass Extremities: normal inspection Skin Exam: warm/dry Neurologic: alert Last 24 Hour Vital Signs Date Time Temp Pulse Resp B/P (MAP) Pulse Ox O2 Delivery O2 Flow Rate FiO2 07/25/19 12:11 64 18 93 Nasal Cannula 2.0 28 07/25/19 09:00 Nasal Cannula 2.0 07/25/19 08:30 83 133/86 07/25/19 08:00 72 07/25/19 08:00 97.6 86 18 133/86 (102) 97 07/25/19 06:59 96.8 07/25/19 04:00 100.0 89 20 107/57 (74) 98 07/25/19 04:00 82 07/25/19 01:31 Nasal Cannula 2.0 07/25/19 01:20 99.7 100 20 157/92 (113) 95 07/25/19 01:20 117 07/25/19 00:25 98.2 105 18 130/80 98 Room Air 07/25/19 00:00 98.2 105 18 130/80 98 Room Air 07/24/19 23:00 98.2 105 18 102/66 98 Room Air 07/24/19 21:40 98.2 102 18 88/59 (69) 98 Room Air Intake and Output 07/24/19 07/25/19 18:59 06:59 Intake Total 133 ml Output Total 300 ml Balance -167 ml Intake IV Total 133 ml Output Urine Total 300 ml Laboratory Tests Test 07/24/19 22:10 07/25/19 05:28 07/25/19 05:54 07/25/19 12:02 White Blood Count 12.4 K/UL (4.8-10.8) H 9.0 K/UL (4.8-10.8) Red Blood Count 4.40 M/UL (4.70-6.10) L 3.51 M/UL (4.70-6.10) L Hemoglobin 13.9 G/DL (14.2-18.0) L 11.3 G/DL (14.2-18.0) L Hematocrit 41.6 % (42.0-52.0) L 33.5 % (42.0-52.0) L Mean Corpuscular Volume 95 FL (80-99) 95 FL (80-99) Mean Corpuscular Hemoglobin 31.5 PG (27.0-31.0) H 32.3 PG (27.0-31.0) H Mean Corpuscular Hemoglobin Concent 33.3 G/DL (32.0-36.0) 33.8 G/DL (32.0-36.0) Red Cell Distribution Width 11.3 % (11.6-14.8) L 11.7 % (11.6-14.8) Platelet Count 332 K/UL (150-450) 227 K/UL (150-450) Mean Platelet Volume 8.7 FL (6.5-10.1) 7.3 FL (6.5-10.1) Neutrophils (%) (Auto) 80.1 % (45.0-75.0) H 72.3 % (45.0-75.0) Lymphocytes (%) (Auto) 8.2 % (20.0-45.0) L 10.7 % (20.0-45.0) L Monocytes (%) (Auto) 7.0 % (1.0-10.0) 12.9 % (1.0-10.0) H Eosinophils (%) (Auto) 2.5 % (0.0-3.0) 3.5 % (0.0-3.0) H Basophils (%) (Auto) 2.2 % (0.0-2.0) H 0.6 % (0.0-2.0) Sodium Level 141 MMOL/L (136-145) 140 MMOL/L (136-145) Potassium Level 4.4 MMOL/L (3.5-5.1) 4.2 MMOL/L (3.5-5.1) Chloride Level 103 MMOL/L (98-107) 106 MMOL/L (98-107) Carbon Dioxide Level 28 MMOL/L (21-32) 29 MMOL/L (21-32) Anion Gap 10 mmol/L (5-15) 5 mmol/L (5-15) Blood Urea Nitrogen 33 mg/dL (7-18) H 29 mg/dL (7-18) H Creatinine 1.6 MG/DL (0.55-1.30) H 1.4 MG/DL (0.55-1.30) H Estimat Glomerular Filtration Rate mL/min (>60) mL/min (>60) Glucose Level 141 MG/DL (74-106) H 100 MG/DL (74-106) Calcium Level 9.2 MG/DL (8.5-10.1) 8.5 MG/DL (8.5-10.1) Troponin I 0.451 ng/mL (0.000-0.056) 0.492 ng/mL (0.000-0.056) 0.510 ng/mL (0.000-0.056) Urine Color Yellow Urine Appearance Clear Urine pH 6.5 (4.5-8.0) Urine Specific [place] 1.010 (1.005-1.035) Urine Protein 1+ (NEGATIVE) H Urine Glucose (UA) Negative (NEGATIVE) Urine Ketones Negative (NEGATIVE) Urine Blood Negative (NEGATIVE) Urine Nitrite Negative (NEGATIVE) Urine Bilirubin Negative (NEGATIVE) Urine Urobilinogen 1 MG/DL (0.0-1.0) H Urine Leukocyte Esterase 1+ (NEGATIVE) H Urine RBC 0-2 /HPF (0 - 0) H Urine WBC 0-2 /HPF (0 - 0) Urine Squamous Epithelial Cells Occasional /LPF Urine Bacteria Few /HPF (NONE) Microbiology Date/Time Source Procedure Growth Status 07/25/19 00:05 Rectum Received Height (Feet): 5 Height (Inches): 6.00 Weight (Pounds): 130 Medications Current Medications Medications (Trade) Dose Ordered Sig/Candace Route PRN Reason Start Time Stop Time Status Last Admin Dose Admin Acetaminophen (Tylenol) 500 mg Q6H PRN ORAL Mild Pain (Pain Scale 1-3) 07/25/19 02:00 08/24/19 01:59 Acetaminophen (Tylenol) 650 mg Q6H PRN ORAL Mild Pain/Temp > 100.5 07/25/19 02:15 08/24/19 02:14 Acetaminophen (Tylenol) 1,000 mg Q6H PRN ORAL Severe Pain (Pain Scale 7-10) 07/25/19 02:00 08/24/19 01:59 Albuterol/ Ipratropium (Albuterol/ Ipratropium) 3 ml Q6H PRN HHN Shortness of Breath 07/25/19 02:00 07/30/19 01:59 Allopurinol (Zyloprim) 100 mg DAILY ORAL 07/25/19 09:00 08/24/19 08:59 07/25/19 08:30 Aspirin (ASA) 81 mg DAILY ORAL 07/25/19 09:00 08/24/19 08:59 07/25/19 08:30 Docusate Sodium (Colace) 100 mg TWICE A DAY ORAL 07/25/19 09:00 08/24/19 08:59 07/25/19 08:30 Heparin Sodium (Porcine) (Heparin 5000 units/ml) 5,000 units EVERY 12 HOURS SUBQ 07/25/19 09:00 08/24/19 08:59 07/25/19 08:31 Magnesium Hydroxide (Mom) 30 ml DAILY PRN ORAL Constipation 07/25/19 02:00 08/24/19 01:59 Memantine (Namenda) 10 mg TWICE A DAY ORAL 07/25/19 09:00 08/24/19 08:59 07/25/19 08:30 Metoprolol Tartrate (Lopressor) 25 mg BID ORAL 07/25/19 09:00 08/24/19 08:59 07/25/19 08:30 Sodium Chloride 1,000 ml @ 50 mls/hr Q20H IV 07/25/19 02:00 08/24/19 01:59 07/25/19 03:21 Assessment/Plan Problem List: (1) Decubitus skin ulcer Assessment & Plan: Pt presented on admission with multiple pressure injuries. Full thickness pressure injury R ischium. Base of wound pink ,moist with 40% slough. Borders are dark and indurated. (L)5.5cm x (W)3.5cm. Full thickness pressure injury L ischium. Base of wound 50% red granulation,50% slough. Borders are erythematous and indurated.Small amt sanguineous exudate noted. No odor noted. (L)1.3cm x (W)1cm. Non-blanching erythema without induration noted to sacrum. L heel boggy with non-blanchable erythema. R heel dry,pink and easily blanches. Tx.Plan: Cleanse wounds R and L ischium with Saline. Apply Therahoney. Apply Moisture Barrier periwound. Cover with Optifoam drsg every 3 days and prn. Apply Moisture Barrier paste to sacrum. Cover with Optifoam drsg. Change every 3 days and prn. Apply Moisture Barrier paste to scrotum with each incontinence care. Apply Cavilon Skin Barrier to both heels. Cpver each heel with Optifoam drsg. Change every 7 days and prn. APM/SHAHZAD Mattress overlay. Reposition at least every 2hours or as tolerated. Off-load heels with pillow. ICD Codes: L89.90 - Pressure ulcer of unspecified site, unspecified stage SNOMED: 221866754 (2) Leukocytosis Assessment & Plan: low grade fevers, leukocytosis on abx ?asp pna cont abx trend labs will follow with recs ICD Codes: D72.829 - Elevated white blood cell count, unspecified SNOMED: 677761408, [id number] (3) Syncope Assessment & Plan: DAILY ESTIMATED NEEDS: Needs based on cardiac 65kg 25-30 kcals/kg 7667-8114 total kcals 1-1.5 g protein/kg 65-98 g total protein 25-30 mL/kg 5107-7148 total fluid mLs NUTRITION DIAGNOSIS: * Swallowing difficulty r/t dysphagia as evidenced by pt on puree texture w/ NTL. * Increased kcal/ prot intake needs R/T wound healing as evidenced by pt admitted w/ wound @ R ischial tuberosity, pending eval. 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 Resume? 4) Wound healing: Add MVI x 1, Vit C 250mg QD : Mainor 1pkt BID 5) Monitor lytes ICD Codes: R55 - Syncope and collapse SNOMED: 950406421 Qualifiers: Qualified Codes: R55 - Syncope and collapse (4) ACS (acute coronary syndrome) ICD Codes: I24.9 - Acute ischemic heart disease, unspecified SNOMED: [id number] Gera Oneil Jul 25, 2019 13:13
[2019-07-25] MEDS ORDERED: Ascorbic Acid 500mg tab ORAL SCH (13:15)
--- NOTE | 2019-07-25 13:42 | Infectious Diseases Prog Note ---
Assessment/Plan Problems: (1) Leukocytosis Assessment & Plan: rule out sepsis , will start vancomycin and cefepime pending blood culture (2) UTI (urinary tract infection) Assessment & Plan: will start cefepime pending blood culture (3) Decubitus skin ulcer Assessment & Plan: on the right ischium , superficial , not draining, keep off loading and continue local wound care and dressings as per hospital protocol (4) Syncope Assessment & Plan: rule out sepsis , will start wide spectrum antibiotics pending his cultures , continue hydration, with close monitoring of blood pressure , check cortisol level Subjective Allergies: Coded Allergies: No Known Allergies (Unverified , 05/02/19) Objective Vital Signs Last 24 Hour Vital Signs Date Time Temp Pulse Resp B/P (MAP) Pulse Ox O2 Delivery O2 Flow Rate FiO2 07/25/19 12:11 64 18 93 Nasal Cannula 2.0 28 07/25/19 12:00 64 07/25/19 09:00 Nasal Cannula 2.0 07/25/19 08:30 83 133/86 07/25/19 08:00 72 07/25/19 08:00 97.6 86 18 133/86 (102) 97 07/25/19 06:59 96.8 07/25/19 04:00 100.0 89 20 107/57 (74) 98 07/25/19 04:00 82 07/25/19 01:31 Nasal Cannula 2.0 07/25/19 01:20 99.7 100 20 157/92 (113) 95 07/25/19 01:20 117 07/25/19 00:25 98.2 105 18 130/80 98 Room Air 07/25/19 00:00 98.2 105 18 130/80 98 Room Air 07/24/19 23:00 98.2 105 18 102/66 98 Room Air 07/24/19 21:40 98.2 102 18 88/59 (69) 98 Room Air Height (Feet): 5 Height (Inches): 6.00 Weight (Pounds): 130 Microbiology Date/Time Source Procedure Growth Status 07/25/19 00:05 Rectum Received Laboratory Tests Test 07/24/19 22:10 07/25/19 05:28 07/25/19 05:54 07/25/19 12:02 White Blood Count 12.4 K/UL (4.8-10.8) H 9.0 K/UL (4.8-10.8) Red Blood Count 4.40 M/UL (4.70-6.10) L 3.51 M/UL (4.70-6.10) L Hemoglobin 13.9 G/DL (14.2-18.0) L 11.3 G/DL (14.2-18.0) L Hematocrit 41.6 % (42.0-52.0) L 33.5 % (42.0-52.0) L Mean Corpuscular Volume 95 FL (80-99) 95 FL (80-99) Mean Corpuscular Hemoglobin 31.5 PG (27.0-31.0) H 32.3 PG (27.0-31.0) H Mean Corpuscular Hemoglobin Concent 33.3 G/DL (32.0-36.0) 33.8 G/DL (32.0-36.0) Red Cell Distribution Width 11.3 % (11.6-14.8) L 11.7 % (11.6-14.8) Platelet Count 332 K/UL (150-450) 227 K/UL (150-450) Mean Platelet Volume 8.7 FL (6.5-10.1) 7.3 FL (6.5-10.1) Neutrophils (%) (Auto) 80.1 % (45.0-75.0) H 72.3 % (45.0-75.0) Lymphocytes (%) (Auto) 8.2 % (20.0-45.0) L 10.7 % (20.0-45.0) L Monocytes (%) (Auto) 7.0 % (1.0-10.0) 12.9 % (1.0-10.0) H Eosinophils (%) (Auto) 2.5 % (0.0-3.0) 3.5 % (0.0-3.0) H Basophils (%) (Auto) 2.2 % (0.0-2.0) H 0.6 % (0.0-2.0) Sodium Level 141 MMOL/L (136-145) 140 MMOL/L (136-145) Potassium Level 4.4 MMOL/L (3.5-5.1) 4.2 MMOL/L (3.5-5.1) Chloride Level 103 MMOL/L (98-107) 106 MMOL/L (98-107) Carbon Dioxide Level 28 MMOL/L (21-32) 29 MMOL/L (21-32) Anion Gap 10 mmol/L (5-15) 5 mmol/L (5-15) Blood Urea Nitrogen 33 mg/dL (7-18) H 29 mg/dL (7-18) H Creatinine 1.6 MG/DL (0.55-1.30) H 1.4 MG/DL (0.55-1.30) H Estimat Glomerular Filtration Rate mL/min (>60) mL/min (>60) Glucose Level 141 MG/DL (74-106) H 100 MG/DL (74-106) Calcium Level 9.2 MG/DL (8.5-10.1) 8.5 MG/DL (8.5-10.1) Troponin I 0.451 ng/mL (0.000-0.056) 0.492 ng/mL (0.000-0.056) 0.510 ng/mL (0.000-0.056) Urine Color Yellow Urine Appearance Clear Urine pH 6.5 (4.5-8.0) Urine Specific [place] 1.010 (1.005-1.035) Urine Protein 1+ (NEGATIVE) H Urine Glucose (UA) Negative (NEGATIVE) Urine Ketones Negative (NEGATIVE) Urine Blood Negative (NEGATIVE) Urine Nitrite Negative (NEGATIVE) Urine Bilirubin Negative (NEGATIVE) Urine Urobilinogen 1 MG/DL (0.0-1.0) H Urine Leukocyte Esterase 1+ (NEGATIVE) H Urine RBC 0-2 /HPF (0 - 0) H Urine WBC 0-2 /HPF (0 - 0) Urine Squamous Epithelial Cells Occasional /LPF Urine Bacteria Few /HPF (NONE) Current Medications Medications (Trade) Dose Ordered Sig/Candace Route PRN Reason Start Time Stop Time Status Last Admin Dose Admin Acetaminophen (Tylenol) 500 mg Q6H PRN ORAL Mild Pain (Pain Scale 1-3) 07/25/19 02:00 08/24/19 01:59 Acetaminophen (Tylenol) 650 mg Q6H PRN ORAL Mild Pain/Temp > 100.5 07/25/19 02:15 08/24/19 02:14 Acetaminophen (Tylenol) 1,000 mg Q6H PRN ORAL Severe Pain (Pain Scale 7-10) 07/25/19 02:00 08/24/19 01:59 Albuterol/ Ipratropium (Albuterol/ Ipratropium) 3 ml Q6H PRN HHN Shortness of Breath 07/25/19 02:00 07/30/19 01:59 Allopurinol (Zyloprim) 100 mg DAILY ORAL 07/25/19 09:00 08/24/19 08:59 07/25/19 08:30 Ascorbic Acid (Vitamin C) 250 mg ONCE ORAL 07/25/19 13:15 07/25/19 14:00 Aspirin (ASA) 81 mg DAILY ORAL 07/25/19 09:00 08/24/19 08:59 07/25/19 08:30 Docusate Sodium (Colace) 100 mg TWICE A DAY ORAL 07/25/19 09:00 08/24/19 08:59 07/25/19 08:30 Heparin Sodium (Porcine) (Heparin 5000 units/ml) 5,000 units EVERY 12 HOURS SUBQ 07/25/19 09:00 08/24/19 08:59 07/25/19 08:31 Magnesium Hydroxide (Mom) 30 ml DAILY PRN ORAL Constipation 07/25/19 02:00 08/24/19 01:59 Memantine (Namenda) 10 mg TWICE A DAY ORAL 07/25/19 09:00 08/24/19 08:59 07/25/19 08:30 Metoprolol Tartrate (Lopressor) 25 mg BID ORAL 07/25/19 09:00 08/24/19 08:59 07/25/19 08:30 Multivitamins (Multivitamins) 1 tab DAILY ORAL 07/26/19 09:00 08/25/19 08:59 Sodium Chloride 1,000 ml @ 50 mls/hr Q20H IV 07/25/19 02:00 08/24/19 01:59 07/25/19 03:21 Earnest Gu M.D. Jul 25, 2019 13:42
[2019-07-25] MEDS: Cefepime HCl 2 GM in D5W 55 ML IVPB SCH (14:38)
--- NOTE | 2019-07-25 14:42 | Cardiology Report ---
APPROVED REPORT EXAM: Two-dimensional and M-mode echocardiogram with Doppler and color Doppler. INDICATION Chest Pain M-Mode DIMENSIONS IVSd1.0 (0.7-1.1cm)Left Atrium (MM)2.4 (1.6-4.0cm) LVDd2.9 (3.5-5.6cm)Aortic Root3.4 (2.0-3.7cm) PWd1.0 (0.7-1.1cm)Aortic Cusp Exc.1.3 (1.5-2.0cm) IVSs1.8 cm LVDs1.5 (2.5-4.0cm) PWs1.2 cm Technically difficult study due to poor acoustical windows and non compliant patient. Normal left ventricular chamber size, systolic function and wall motion to extent visualized. Left ventricular ejection fraction estimated to be 55%. Study quality precludes accurate assessment of regional wall motion. No evidence of pericardial effusion. All other cardiac chamber sizes are within normal limits. Focal aortic valve sclerosis with reduced cusp excursion. Thickened mitral valve leaflets with normal excursion. Mitral annulus and aortic root calcification. Pulmonic valve not well visualized. Normal tricuspid valve structure. IVC at normal size with physiologic collapse. A color flow and spectral Doppler study was performed and revealed: No aortic regurgitation. Peak aortic valve gradient of 10 mm Hg and a mean of 5 mmHg. Aortic valve area 2.5 cm2 calculated by continuity equation. Trace mitral regurgitation. Mitral inflow velocities indicates possible pseudo normalization pattern implying moderately elevated left atrial pressure (Grade II ) Mild tricuspid regurgitation. Tricuspid systolic velocities suggests peak right ventricular systolic pressure of 35 mmHg consistent with borderline mild pulmonary hypertension.
[2019-07-25] MEDS ORDERED: Vancomycin 1.25gm/NS Premix IVPB ONE (15:00)
--- NOTE | 2019-07-25 15:37 | NUR ---
NURSE NOTES:WOUND CARE NOTES:Pt presented on admission with multiple pressure injuries. Full thickness pressure injury R ischium. Base of wound pink ,moist with 40% slough. Borders are dark and indurated. (L)5.5cm x (W)3.5cm. Full thickness pressure injury L ischium. Base of wound 50% red granulation,50% slough. Borders are erythematous and indurated.Small amt sanguineous exudate noted. No odor noted. (L)1.3cm x (W)1cm. Non-blanching erythema without induration noted to sacrum. L heel boggy with non-blanchable erythema. R heel dry,pink and easily blanches. Tx.Plan: Cleanse wounds R and L ischium with Saline. Apply Therahoney. Apply Moisture Barrier periwound. Cover with Optifoam drsg every 3 days and prn. Apply Moisture Barrier paste to sacrum. Cover with Optifoam drsg. Change every 3 days and prn. Apply Moisture Barrier paste to scrotum with each incontinence care. Apply Cavilon Skin Barrier to both heels. Cpver each heel with Optifoam drsg. Change every 7 days and prn. APM/SHAHZAD Mattress overlay. Reposition at least every 2hours or as tolerated. Off-load heels with pillow.
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
[2019-07-25] MEDS ORDERED: MIRTAZAPINE15 MG ORAL (18:38)
--- NOTE | 2019-07-25 19:15 | NUR ---
HAND-OFF: Report given to NIKKY Jesus. Patient's stable, plan of care endorsed.
--- NOTE | 2019-07-25 19:31 | NUR ---
NURSE NOTES: Received report from Sonal Rn, pt. in bed awake, family at bedside, pt. on radiation monitor, A/O x's 1- alert to name, no signs or symptoms of acute cardiac or respiratory distress noted, bed in lowest position and call light within easy reach, bed alarm on, side rails up x's 3 an safety braked engaged, pt. appears to be sating well on 2L NC - no distress noted, condom cath intact and draining to gravity, pt. appears clean and dry, LFA 22G IV intact and patent- running NS at 50cc/hr, safety measures continued, will continue with plan of care.
--- NOTE | 2019-07-25 20:26 | NUR ---
CASE MANAGEMENT: REVIEW 84Y/MALE BIBA FROM [facility] CC: PASSING OUT WHILE TRANSFERRING FROM BED TO WHEELCHAIR SI: ACS . SYNCOPE T 98.2 HR 105 RR 18 BP 88/59 SAT 98% ROOM AIR WBC 12.4 H/H 13.9/41.6 BUN 33 CR 1.6 TROP 0.451 IS: NS IVF BOLUS X1 LOVENOX 60MG SUBQ X1 ASA 162MG PO X1 PATIENT ADMITTED TO TELEMETRY UNIT 07/24/2019 DCP: PATIENT IS FROM [facility] PLAN: CARDIO CONSULT
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
[2019-07-26] VITALS: BP 122/71
[2019-07-26 04:00] VITALS: BP 121/70
--- NOTE | 2019-07-26 07:05 | CDS Physician Query ---
Clarification is required for compliance, coding accuracy, and to reflect severity of illness for this patient Dear Earnest Fields M.D. Date: 07/26/2019 CDS: Jermaine Lo According to the clinical indications above, please indicate below the condition In progress notes documented Leukocytosis, rule out Sepsis, UTI, Decubitus skin ulcer Labs: WBC: 12.4 Tx: IV VACOMYCIN; IV CEFEPIME PHYSICIAN RESPONSE: Sepsis SIRS SIRS with organ dysfunction Septic Shock Not applicable Other: (possible sepsis) was ruled out with negative blood culture x2 UTI is confirmed with positive urine culture Present on Admission: Yes x No Clinically Undetermined Physician signature Date Please also document in your Progress Notes and/or Discharge Summary and indicate if the condition was present on admission. MTDD
--- NOTE | 2019-07-26 07:12 | NUR ---
HAND-OFF: Report given to Suzy RN, pt. remains stable and no signs of distress noted.
--- NOTE | 2019-07-26 07:40 | NUR ---
NURSE NOTES: Received patient from Antonella Coyle Rn. Patient is awake in lying comfortably in bed. no s/s of distress. Oxygen at 2/L min via nasal cannula. safety precautions in place. side rails X3 up. bed locked to lowest position. bed alarm activated. call virk within patients reach. will follow.
[2019-07-26 07:45] LABS: BASOPHILS % (AUTO) 0.8 % (0.0-2.0); HEMATOCRIT 33.3 % (42.0-52.0); LYMPHOCYTES % (AUTO) 12.5 % (20.0-45.0); MEAN CORPUSCULAR VOLUME 96 FL (80-99); MONOCYTES % (AUTO) 10.8 % (1.0-10.0); NEUTROPHILS % (AUTO) 69.9 % (45.0-75.0); PLATELET COUNT 193 K/UL (150-450); RED BLOOD COUNT 3.47 M/UL (4.70-6.10); WHITE BLOOD COUNT 6.5 K/UL (4.8-10.8)
[2019-07-26 08:00] VITALS: BP 153/80
[2019-07-26 08:32] LABS: ALANINE AMINOTRANSFERASE 23 U/L (12-78); ALBUMIN 2.1 G/DL (3.4-5.0); ALBUMIN/GLOBULIN RATIO 0.6 (1.0-2.7); ALKALINE PHOSPHATASE 86 U/L (46-116); ANION GAP 3 mmol/L (5-15); ASPARTATE AMINO TRANSFERASE 23 U/L (15-37); BILIRUBIN,TOTAL 0.4 MG/DL (0.2-1.0); BLOOD UREA NITROGEN 21 mg/dL (7-18); CALCIUM 8.5 MG/DL (8.5-10.1); CARBON DIOXIDE 30 MMOL/L (21-32); CHLORIDE 109 MMOL/L (98-107); CREATININE 1.2 MG/DL (0.55-1.30); SODIUM 142 MMOL/L (136-145)
[2019-07-26] MEDS: Allopurinol 100mg Tab ORAL SCH (08:47)
[2019-07-26] MEDS: Memantine 10mg tab ORAL SCH (08:47)
[2019-07-26] MEDS: Docusate 100mg cap ORAL SCH (08:47)
[2019-07-26] MEDS: Metoprolol 25mg tab ORAL SCH (08:47)
[2019-07-26] MEDS: Aspirin Baby 81mg ORAL SCH (08:47)
[2019-07-26] MEDS: Heparin 5000 units/ml inj SUBQ SCH (08:50)
[2019-07-26] MEDS: Cefepime HCl 2 GM in D5W 55 ML IVPB SCH (08:50)
--- NOTE | 2019-07-26 11:21 | Cardiology Progress Note ---
Assessment/Plan Status: stable Assessment/Plan ASSESSMENT AND PLAN: 1. Elevated troponin. The patient has chronic troponin leak. His previous troponin on 06/24/2019 about a month ago was also 0.41. His previous admission in April 2019 also had elevated troponin. The patient has not had any normal troponin during his multiple hospitalizations. The patient also denies any chest pain and is quite comfortable at this time. His EKG also showed sinus rhythm with no acute ST-T wave abnormalities. At the meantime, keep the patient on aspirin 81 mg daily, metoprolol 25 mg b.i.d. Echocardiogram reviewed, no wall motion abnormalities 2. Hypertension, on metoprolol 25 mg b.i.d. 3. Status post syncopal episode, usually not clear at this time. His last echocardiogram a month ago showed EF of 70 to 75%, no aortic stenosis. It is of note that the patient also had a head CT on 07/24/2019 that showed no mass effect or edema. 4. Azotemia and renal failure. BUN/creatinine is mildly elevated BUN of 20, creatinine of 1.4. 5. History of stroke. 6. Large diaphragmatic hernia. 7. DNR. 8. Dysphagia, on pureed diet. Family is refusing PEG placement. Subjective Cardiovascular: Reports: no symptoms Respiratory: Reports: no symptoms Gastrointestinal/Abdominal: Reports: no symptoms Genitourinary: Reports: no symptoms Subjective COVERAGE FOR TOLUIE: No acute events, vitals stable, TTE with normal LV Function and grade 2 diastolic dysfunction normal PA pressures Objective Last 24 Hour Vital Signs Date Time Temp Pulse Resp B/P (MAP) Pulse Ox O2 Delivery O2 Flow Rate FiO2 07/26/19 09:00 Nasal Cannula 2.0 07/26/19 08:47 78 153/80 07/26/19 08:00 79 07/26/19 08:00 98.0 78 20 153/80 (104) 98 07/26/19 04:00 97.0 72 19 121/70 (87) 94 07/26/19 04:00 71 07/26/19 00:00 97.7 70 19 122/71 (88) 94 07/26/19 00:00 64 07/25/19 20:00 65 07/25/19 20:00 Nasal Cannula 2.0 07/25/19 20:00 98.2 62 17 101/67 (78) 98 07/25/19 19:10 69 18 94 Nasal Cannula 2.0 28 07/25/19 17:45 66 99/61 07/25/19 16:00 66 07/25/19 16:00 98.2 67 20 99/61 (74) 96 07/25/19 12:11 64 18 93 Nasal Cannula 2.0 28 07/25/19 12:00 64 07/25/19 12:00 98.3 72 18 111/76 (88) 98 General Appearance: no apparent distress, alert EENT: PERRL/EOMI, normal ENT inspection, TMs normal, pharynx normal Neck: non-tender, normal alignment, supple, normal inspection Rhythm: NSR Cardiovascular: normal peripheral pulses, normal rate, regular rhythm Respiratory/Chest: chest wall non-tender, lungs clear, normal breath sounds Abdomen: normal bowel sounds, non tender, soft, hyperactive bowel sounds Extremities: normal range of motion, non-tender, normal inspection 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, no motor/sensory deficits Intake and Output 07/25/19 07/26/19 19:00 07:00 Intake Total 750 ml 598 ml Output Total 240 ml 100 ml Balance 510 ml 498 ml Intake Oral 700 ml IV Total 50 ml 598 ml Output Urine Total 240 ml 100 ml # Voids 2 # Bowel Movements 1 1 Laboratory Tests Test 07/25/19 12:02 07/26/19 06:43 07/26/19 06:50 Troponin I 0.510 ng/mL (0.000-0.056) 0.425 ng/mL (0.000-0.056) Sodium Level 142 MMOL/L (136-145) Potassium Level 4.0 MMOL/L (3.5-5.1) Chloride Level 109 MMOL/L (98-107) H Carbon Dioxide Level 30 MMOL/L (21-32) Anion Gap 3 mmol/L (5-15) L Blood Urea Nitrogen 21 mg/dL (7-18) H Creatinine 1.2 MG/DL (0.55-1.30) Estimat Glomerular Filtration Rate mL/min (>60) Glucose Level 89 MG/DL (74-106) Calcium Level 8.5 MG/DL (8.5-10.1) Total Bilirubin 0.4 MG/DL (0.2-1.0) Aspartate Amino Transf (AST/SGOT) 23 U/L (15-37) Alanine Aminotransferase (ALT/SGPT) 23 U/L (12-78) Alkaline Phosphatase 86 U/L (46-116) Total Protein 5.7 G/DL (6.4-8.2) L Albumin 2.1 G/DL (3.4-5.0) L Globulin 3.6 g/dL Albumin/Globulin Ratio 0.6 (1.0-2.7) L White Blood Count 6.5 K/UL (4.8-10.8) Red Blood Count 3.47 M/UL (4.70-6.10) L Hemoglobin 11.0 G/DL (14.2-18.0) L Hematocrit 33.3 % (42.0-52.0) L Mean Corpuscular Volume 96 FL (80-99) Mean Corpuscular Hemoglobin 31.6 PG (27.0-31.0) H Mean Corpuscular Hemoglobin Concent 33.0 G/DL (32.0-36.0) Red Cell Distribution Width 12.0 % (11.6-14.8) Platelet Count 193 K/UL (150-450) Mean Platelet Volume 7.3 FL (6.5-10.1) Neutrophils (%) (Auto) 69.9 % (45.0-75.0) Lymphocytes (%) (Auto) 12.5 % (20.0-45.0) L Monocytes (%) (Auto) 10.8 % (1.0-10.0) H Eosinophils (%) (Auto) 6.0 % (0.0-3.0) H Basophils (%) (Auto) 0.8 % (0.0-2.0) Microbiology Date/Time Source Procedure Growth Status 07/25/19 05:54 Urine,Clean Catch Urine Culture - Preliminary Gram Negative Michael Resulted 07/25/19 00:05 Rectum Received Cesar Mejia MD Jul 26, 2019 11:21
[2019-07-26 12:00] VITALS: BP 104/64
--- NOTE | 2019-07-26 13:09 | General Progress Note ---
Assessment/Plan Status: stable Assessment/Plan: 1. Syncope - stable now. BP is improved with hydration. 2. Elevated Troponin - probably 2nd to CKD 3. Dementia - 4. Dysphagia and hx of asp pneumonia - DNR and family refused Peg tube placement. on Puree diet. 5. Gout - stable. 6. Eleveted WBC, questionable sepsis - will follow blood and urine cultures. consider starting broad spectrum IV abx until cxs are back 7. UTI - cont IV abx at the rehab and will f/u culture result from hospital. Pt family insisting to take him back to [facility] rehab today. 7. CVA with hemiplegia 8. COPD - cont Duoneb nab. Subjective Date patient seen: Jul 26, 2019 Time patient seen: 13:00 Constitutional: Reports: weakness HEENT: Reports: no symptoms Cardiovascular: Reports: no symptoms Respiratory: Reports: no symptoms Gastrointestinal/Abdominal: Reports: no symptoms Genitourinary: Reports: no symptoms Neurologic/Psychiatric: Reports: no symptoms Endocrine: Reports: no symptoms Hematologic/Lymphatic: Reports: no symptoms Allergies: Coded Allergies: No Known Allergies (Unverified , 05/02/19) Subjective Patient is resting in bed with his at bedside. patient insisting to take him back to [facility] today. afebrile but cultures are not back yet. Objective Last 24 Hour Vital Signs Date Time Temp Pulse Resp B/P (MAP) Pulse Ox O2 Delivery O2 Flow Rate FiO2 07/26/19 12:00 97.8 71 18 104/64 (77) 97 07/26/19 09:00 68 20 98 Nasal Cannula 2.0 28 07/26/19 09:00 Nasal Cannula 2.0 07/26/19 08:47 78 153/80 07/26/19 08:00 79 07/26/19 08:00 98.0 78 20 153/80 (104) 98 07/26/19 04:00 97.0 72 19 121/70 (87) 94 07/26/19 04:00 71 07/26/19 00:00 97.7 70 19 122/71 (88) 94 07/26/19 00:00 64 07/25/19 20:00 65 07/25/19 20:00 Nasal Cannula 2.0 07/25/19 20:00 98.2 62 17 101/67 (78) 98 07/25/19 19:10 69 18 94 Nasal Cannula 2.0 28 07/25/19 17:45 66 99/61 07/25/19 16:00 66 07/25/19 16:00 98.2 67 20 99/61 (74) 96 Intake and Output 07/25/19 07/26/19 19:00 07:00 Intake Total 750 ml 598 ml Output Total 240 ml 100 ml Balance 510 ml 498 ml Intake Oral 700 ml IV Total 50 ml 598 ml Output Urine Total 240 ml 100 ml # Voids 2 # Bowel Movements 1 1 Laboratory Tests 07/26/19 06:43: Sodium Level 142, Potassium Level 4.0, Chloride Level 109H, Carbon Dioxide Level 30, Anion Gap 3L, Blood Urea Nitrogen 21H, Creatinine 1.2, Estimat Glomerular Filtration Rate , Glucose Level 89, Calcium Level 8.5, Total Bilirubin 0.4, Aspartate Amino Transf (AST/SGOT) 23, Alanine Aminotransferase ( ALT/SGPT) 23, Alkaline Phosphatase 86, Troponin I 0.425H, Total Protein 5.7L, Albumin 2.1L, Globulin 3.6, Albumin/Globulin Ratio 0.6L 07/26/19 06:50: White Blood Count 6.5, Red Blood Count 3.47L, Hemoglobin 11.0L, Hematocrit 33.3L , Mean Corpuscular Volume 96, Mean Corpuscular Hemoglobin 31.6H, Mean Corpuscular Hemoglobin Concent 33.0, Red Cell Distribution Width 12.0, Platelet Count 193, Mean Platelet Volume 7.3, Neutrophils (%) (Auto) 69.9, Lymphocytes (% ) (Auto) 12.5L, Monocytes (%) (Auto) 10.8H, Eosinophils (%) (Auto) 6.0H, Basophils (%) (Auto) 0.8 Height (Feet): 5 Height (Inches): 6.00 Weight (Pounds): 130 General Appearance: no apparent distress, alert Neck: non-tender, supple Cardiovascular: normal peripheral pulses, normal rate, regular rhythm Respiratory/Chest: chest wall non-tender, lungs clear Abdomen: normal bowel sounds, non tender, soft Extremities: non-tender Edema: no edema noted Arm (L), no edema noted Arm (R), no edema noted Leg (L), no edema noted Leg (R), no edema noted Pedal (L), no edema noted Pedal (R), no edema noted Generalized Neurologic: alert, responsive Skin: other - pressure ulcer Lymphatic: normal axillary (L), normal axillary (R), normal inguinal (L), normal inguinal (R) Joellen Lara MD Jul 26, 2019 13:09
[2019-07-26] MEDS ORDERED: MULTIVITAMINS1 EAC2 ORAL (13:15)
[2019-07-26] MEDS ORDERED: VANCOMYCIN750 MG/150 IV (13:15)
[2019-07-26] MEDS ORDERED: CEFEPIME 22 GM/100 M IV (13:15)
--- NOTE | 2019-07-26 13:33 | NUR ---
DISCHARGE DISPOSITION: PLEASE READ PATIENT TO BE DISCHARGED TO [facility] [address] T: [phone]>> CALL DIONTE FOR REPORT [facility] ETA 1500 VM LEFT FOR WILMAR MENDOSA REGARDING DCP
--- NOTE | 2019-07-26 13:43 | Surgery Progress Note ---
Surgery Progress Note Subjective Additional Comments no acute events comfortable stable family at bedside Objective Last 24 Hour Vital Signs Date Time Temp Pulse Resp B/P (MAP) Pulse Ox O2 Delivery O2 Flow Rate FiO2 07/26/19 12:00 97.8 71 18 104/64 (77) 97 07/26/19 09:00 68 20 98 Nasal Cannula 2.0 28 07/26/19 09:00 Nasal Cannula 2.0 07/26/19 08:47 78 153/80 07/26/19 08:00 79 07/26/19 08:00 98.0 78 20 153/80 (104) 98 07/26/19 04:00 97.0 72 19 121/70 (87) 94 07/26/19 04:00 71 07/26/19 00:00 97.7 70 19 122/71 (88) 94 07/26/19 00:00 64 07/25/19 20:00 65 07/25/19 20:00 Nasal Cannula 2.0 07/25/19 20:00 98.2 62 17 101/67 (78) 98 07/25/19 19:10 69 18 94 Nasal Cannula 2.0 28 07/25/19 17:45 66 99/61 07/25/19 16:00 66 07/25/19 16:00 98.2 67 20 99/61 (74) 96 I&O Intake and Output 07/25/19 07/26/19 18:59 06:59 Intake Total 750 ml 598 ml Output Total 240 ml 100 ml Balance 510 ml 498 ml Intake Oral 700 ml IV Total 50 ml 598 ml Output Urine Total 240 ml 100 ml # Voids 2 # Bowel Movements 1 1 Dressing: saturated Wound: clean Cardiovascular: RSR Respiratory: clear Abdomen: soft, non-tender, present bowel sounds Extremities: no edema, other Laboratory Tests Test 07/26/19 06:43 07/26/19 06:50 Sodium Level 142 MMOL/L (136-145) Potassium Level 4.0 MMOL/L (3.5-5.1) Chloride Level 109 MMOL/L (98-107) H Carbon Dioxide Level 30 MMOL/L (21-32) Anion Gap 3 mmol/L (5-15) L Blood Urea Nitrogen 21 mg/dL (7-18) H Creatinine 1.2 MG/DL (0.55-1.30) Estimat Glomerular Filtration Rate mL/min (>60) Glucose Level 89 MG/DL (74-106) Calcium Level 8.5 MG/DL (8.5-10.1) Total Bilirubin 0.4 MG/DL (0.2-1.0) Aspartate Amino Transf (AST/SGOT) 23 U/L (15-37) Alanine Aminotransferase (ALT/SGPT) 23 U/L (12-78) Alkaline Phosphatase 86 U/L (46-116) Troponin I 0.425 ng/mL (0.000-0.056) Total Protein 5.7 G/DL (6.4-8.2) L Albumin 2.1 G/DL (3.4-5.0) L Globulin 3.6 g/dL Albumin/Globulin Ratio 0.6 (1.0-2.7) L White Blood Count 6.5 K/UL (4.8-10.8) Red Blood Count 3.47 M/UL (4.70-6.10) L Hemoglobin 11.0 G/DL (14.2-18.0) L Hematocrit 33.3 % (42.0-52.0) L Mean Corpuscular Volume 96 FL (80-99) Mean Corpuscular Hemoglobin 31.6 PG (27.0-31.0) H Mean Corpuscular Hemoglobin Concent 33.0 G/DL (32.0-36.0) Red Cell Distribution Width 12.0 % (11.6-14.8) Platelet Count 193 K/UL (150-450) Mean Platelet Volume 7.3 FL (6.5-10.1) Neutrophils (%) (Auto) 69.9 % (45.0-75.0) Lymphocytes (%) (Auto) 12.5 % (20.0-45.0) L Monocytes (%) (Auto) 10.8 % (1.0-10.0) H Eosinophils (%) (Auto) 6.0 % (0.0-3.0) H Basophils (%) (Auto) 0.8 % (0.0-2.0) Plan Problems: (1) Decubitus skin ulcer Assessment & Plan: Pt presented on admission with multiple pressure injuries. Full thickness pressure injury R ischium. Base of wound pink ,moist with 40% slough. Borders are dark and indurated. (L)5.5cm x (W)3.5cm. Full thickness pressure injury L ischium. Base of wound 50% red granulation,50% slough. Borders are erythematous and indurated.Small amt sanguineous exudate noted. No odor noted. (L)1.3cm x (W)1cm. Non-blanching erythema without induration noted to sacrum. L heel boggy with non-blanchable erythema. R heel dry,pink and easily blanches. Tx.Plan: Cleanse wounds R and L ischium with Saline. Apply Therahoney. Apply Moisture Barrier periwound. Cover with Optifoam drsg every 3 days and prn. Apply Moisture Barrier paste to sacrum. Cover with Optifoam drsg. Change every 3 days and prn. Apply Moisture Barrier paste to scrotum with each incontinence care. Apply Cavilon Skin Barrier to both heels. Cpver each heel with Optifoam drsg. Change every 7 days and prn. APM/SHAHZAD Mattress overlay. Reposition at least every 2hours or as tolerated. Off-load heels with pillow. (2) Leukocytosis Assessment & Plan: low grade fevers, leukocytosis on abx ?asp pna cont abx trend labs will follow with recs (3) Syncope Assessment & Plan: DAILY ESTIMATED NEEDS: Needs based on cardiac 65kg 25-30 kcals/kg 2150-4971 total kcals 1-1.5 g protein/kg 65-98 g total protein 25-30 mL/kg 6225-9263 total fluid mLs NUTRITION DIAGNOSIS: * Swallowing difficulty r/t dysphagia as evidenced by pt on puree texture w/ NTL. * Increased kcal/ prot intake needs R/T wound healing as evidenced by pt admitted w/ wound @ R ischial tuberosity, pending eval. 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 Resume? 4) Wound healing: Add MVI x 1, Vit C 250mg QD : Mainor 1pkt BID 5) Monitor lytes (4) ACS (acute coronary syndrome) Additional Comments please ensure above care plan continued upon discharge thank you Gera Oneil Jul 26, 2019 13:43
[2019-07-26] MEDS ORDERED: NS 275ml ONE (13:58)
[2019-07-26] MEDS ORDERED: Tubing IV Secondary IV ONE (13:58)
--- NOTE | 2019-07-26 14:00 | NUR ---
NURSE NOTES: Received order from Dr. Lara to Discharge patient back to [facility] after todays dose of vancomycin. transplant case manager aware. Family and daughter at bedside. Report given to Nurse Oscar at [facility] made aware to have vanco through ordered for tomorrow as per MD. 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 will follow.
--- NOTE | 2019-07-26 14:24 | Infectious Diseases Prog Note ---
Assessment/Plan Problems: (1) Leukocytosis Assessment & Plan: rule out sepsis , continue vancomycin and cefepime pending blood culture (2) UTI (urinary tract infection) Assessment & Plan: with gram negative rods , continue cefepime pending final culture (3) Decubitus skin ulcer Assessment & Plan: on the right ischium , superficial , not draining, keep off loading and continue local wound care and dressings as per hospital protocol (4) Syncope Assessment & Plan: rule out sepsis , will continue wide spectrum antibiotics pending his blood cultures , continue hydration, with close monitoring of blood pressure Subjective Constitutional: Reports: no symptoms HEENT: Reports: no symptoms Respiratory: Reports: no symptoms Breasts: Reports: no symptoms Cardiovascular: Reports: no symptoms Gastrointestinal/Abdominal: Reports: no symptoms Genitourinary: Reports: no symptoms Neurologic: Reports: no symptoms Psychiatric: Reports: no symptoms Skin: Reports: no symptoms Endocrine: Reports: no symptoms Hematologic: Reports: no symptoms Musculoskeletal: Reports: no symptoms Allergies: Coded Allergies: No Known Allergies (Unverified , 05/02/19) Objective Vital Signs Last 24 Hour Vital Signs Date Time Temp Pulse Resp B/P (MAP) Pulse Ox O2 Delivery O2 Flow Rate FiO2 07/26/19 12:00 97.8 71 18 104/64 (77) 97 07/26/19 09:00 68 20 98 Nasal Cannula 2.0 28 07/26/19 09:00 Nasal Cannula 2.0 07/26/19 08:47 78 153/80 07/26/19 08:00 79 07/26/19 08:00 98.0 78 20 153/80 (104) 98 07/26/19 04:00 97.0 72 19 121/70 (87) 94 07/26/19 04:00 71 07/26/19 00:00 97.7 70 19 122/71 (88) 94 07/26/19 00:00 64 07/25/19 20:00 65 07/25/19 20:00 Nasal Cannula 2.0 07/25/19 20:00 98.2 62 17 101/67 (78) 98 07/25/19 19:10 69 18 94 Nasal Cannula 2.0 28 07/25/19 17:45 66 99/61 07/25/19 16:00 66 07/25/19 16:00 98.2 67 20 99/61 (74) 96 Height (Feet): 5 Height (Inches): 6.00 Weight (Pounds): 130 General Appearance: WD/WN, no acute distress HEENT: normocephalic, atraumatic, anicteric, mucous membranes moist, PERRL Respiratory/Chest: chest wall non-tender, no respiratory distress, no accessory muscle use, decreased breath sounds, crackles/rales Cardiovascular: normal peripheral pulses, normal rate, regular rhythm, no gallop/murmur, no JVD Abdomen: normal bowel sounds, soft, non tender, no organomegaly, non distended , no mass, no scars Extremities: no cyanosis, no clubbing Skin: no rash, no lesions, no ulcers Neurologic/Psychiatric: alert, responsive Lymphatic: no neck adenopathy, no groin adenopathy Musculoskeletal: normal muscle bulk, no effusion Microbiology Date/Time Source Procedure Growth Status 07/25/19 05:54 Urine,Clean Catch Urine Culture - Preliminary Gram Negative Michael Resulted 07/25/19 00:05 Rectum Received Laboratory Tests Test 07/26/19 06:43 07/26/19 06:50 Sodium Level 142 MMOL/L (136-145) Potassium Level 4.0 MMOL/L (3.5-5.1) Chloride Level 109 MMOL/L (98-107) H Carbon Dioxide Level 30 MMOL/L (21-32) Anion Gap 3 mmol/L (5-15) L Blood Urea Nitrogen 21 mg/dL (7-18) H Creatinine 1.2 MG/DL (0.55-1.30) Estimat Glomerular Filtration Rate mL/min (>60) Glucose Level 89 MG/DL (74-106) Calcium Level 8.5 MG/DL (8.5-10.1) Total Bilirubin 0.4 MG/DL (0.2-1.0) Aspartate Amino Transf (AST/SGOT) 23 U/L (15-37) Alanine Aminotransferase (ALT/SGPT) 23 U/L (12-78) Alkaline Phosphatase 86 U/L (46-116) Troponin I 0.425 ng/mL (0.000-0.056) Total Protein 5.7 G/DL (6.4-8.2) L Albumin 2.1 G/DL (3.4-5.0) L Globulin 3.6 g/dL Albumin/Globulin Ratio 0.6 (1.0-2.7) L White Blood Count 6.5 K/UL (4.8-10.8) Red Blood Count 3.47 M/UL (4.70-6.10) L Hemoglobin 11.0 G/DL (14.2-18.0) L Hematocrit 33.3 % (42.0-52.0) L Mean Corpuscular Volume 96 FL (80-99) Mean Corpuscular Hemoglobin 31.6 PG (27.0-31.0) H Mean Corpuscular Hemoglobin Concent 33.0 G/DL (32.0-36.0) Red Cell Distribution Width 12.0 % (11.6-14.8) Platelet Count 193 K/UL (150-450) Mean Platelet Volume 7.3 FL (6.5-10.1) Neutrophils (%) (Auto) 69.9 % (45.0-75.0) Lymphocytes (%) (Auto) 12.5 % (20.0-45.0) L Monocytes (%) (Auto) 10.8 % (1.0-10.0) H Eosinophils (%) (Auto) 6.0 % (0.0-3.0) H Basophils (%) (Auto) 0.8 % (0.0-2.0) Current Medications Medications (Trade) Dose Ordered Sig/Candace Route PRN Reason Start Time Stop Time Status Last Admin Dose Admin Acetaminophen (Tylenol) 500 mg Q6H PRN ORAL Mild Pain (Pain Scale 1-3) 07/25/19 02:00 08/24/19 01:59 Acetaminophen (Tylenol) 650 mg Q6H PRN ORAL Mild Pain/Temp > 100.5 07/25/19 02:15 08/24/19 02:14 Acetaminophen (Tylenol) 1,000 mg Q6H PRN ORAL Severe Pain (Pain Scale 7-10) 07/25/19 02:00 08/24/19 01:59 Albuterol/ Ipratropium (Albuterol/ Ipratropium) 3 ml Q6H PRN HHN Shortness of Breath 07/25/19 02:00 07/30/19 01:59 Allopurinol (Zyloprim) 100 mg DAILY ORAL 07/25/19 09:00 08/24/19 08:59 07/26/19 08:47 Aspirin (ASA) 81 mg DAILY ORAL 07/25/19 09:00 08/24/19 08:59 07/26/19 08:47 Cefepime HCl 2 gm/ Dextrose 55 ml @ 110 mls/hr DAILY IVPB 07/25/19 14:00 08/01/19 13:59 07/26/19 08:50 Docusate Sodium (Colace) 100 mg TWICE A DAY ORAL 07/25/19 09:00 08/24/19 08:59 07/26/19 08:47 Heparin Sodium (Porcine) (Heparin 5000 units/ml) 5,000 units EVERY 12 HOURS SUBQ 07/25/19 09:00 08/24/19 08:59 07/26/19 08:50 Magnesium Hydroxide (Mom) 30 ml DAILY PRN ORAL Constipation 07/25/19 02:00 08/24/19 01:59 Memantine (Namenda) 10 mg TWICE A DAY ORAL 07/25/19 09:00 08/24/19 08:59 07/26/19 08:47 Metoprolol Tartrate (Lopressor) 25 mg BID ORAL 07/25/19 09:00 08/24/19 08:59 07/26/19 08:47 Multivitamins (Multivitamins) 1 tab DAILY ORAL 07/26/19 09:00 08/25/19 08:59 07/26/19 08:47 Sodium Chloride 1,000 ml @ 50 mls/hr Q20H IV 07/25/19 02:00 08/24/19 01:59 07/25/19 20:02 Vancomycin HCl (Vanco rx to dose) 1 ea DAILY PRN MISC Per rx protocol 07/25/19 13:45 08/24/19 13:44 Vancomycin HCl 750 mg/Sodium Chloride 275 ml @ 183.333 mls/hr Q24H IVPB 07/26/19 15:00 07/31/19 14:59 07/26/19 14:08 Earnest Gu M.D. Jul 26, 2019 14:24
[2019-07-26] MEDS ORDERED: Vancomycin 750mg/NS 275ml IVPB SCH ×2 (15:00)
[2019-07-26 16:00] VITALS: BP 141/64
--- NOTE | 2019-07-26 17:50 | NUR ---
NURSE NOTES: Patient discharge to [facility]. Patient left the floor no s/s of distress, VSS. Family at bedside at time of discharge. Wound care photos taken prior to discharge.
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
== END 2019-07-26 17:30 | DRG 689 ==
LOC: EDBD 21:39 → EMR 22:00 → 2E 23:41 → EDBEDREQ 23:53
DX: N39.0 Urinary tract infection, site not specified (principal); L89.323 Pressure ulcer of left buttock, stage 3; L89.313 Pressure ulcer of right buttock, stage 3; I24.9 Acute ischemic heart disease, unspecified; I69.359 Hemiplegia and hemiparesis following cerebral infarction affecting unspecified side; R55 Syncope and collapse; J44.9 Chronic obstructive pulmonary disease, unspecified; M10.9 Gout, unspecified; Z79.82 Long term (current) use of aspirin; I12.9 Hypertensive chronic kidney disease with stage 1 through stage 4 chronic kidney disease, or unspecified chronic kidney disease; N18.9 Chronic kidney disease, unspecified; Z66 Do not resuscitate; K44.9 Diaphragmatic hernia without obstruction or gangrene; R13.10 Dysphagia, unspecified
CPT/HCPCS: 36415; 70450; 71045; 80048; 80053; 81001; 84484; 85025; 87040; 87081; 87086; 87181; 93005; 93306; 94664; 96360; 96372; 99285